=== PATIENT | female | born 1965 | race Caucasian/White ===

== ENCOUNTER 2020-10-30 15:19 | Outpatient (REF) | payer MEDICAID, SELFPAY | END 2020-10-30 15:20 | disposition home or self-care (01) | LOC: HO.LAB 15:19 | PROVIDERS: Visit Provider Internal Medicine | DX: Z20.828 Contact with and (suspected) exposure to other viral communicable diseases (principal) | CPT/HCPCS: C9803; U0003 ==

== ENCOUNTER 2021-01-06 11:04 | Outpatient (REF) | payer MEDICAID, SELFPAY | END 2021-01-06 11:05 | disposition home or self-care (01) | LOC: HO.LAB 11:04 | PROVIDERS: Visit Provider Internal Medicine | DX: Z20.822 Contact with and (suspected) exposure to COVID-19 (principal) | CPT/HCPCS: 36415; C9803; U0003; U0005 ==

== ENCOUNTER 2021-09-28 13:20 | Emergency (ER) | payer MEDICAID, SELFPAY ==
[2021-09-28 13:26] VITALS: BP 144/86; PULSE 93; RESP 18; TEMP 36.6; O2SAT 99; BMI 29.9
--- NOTE | 2021-09-28 16:25 | ECG_ITS ---
Test Reason : ANXIETY Blood Pressure : / mmHG Vent. Rate : 072 BPM Atrial Rate : 072 BPM P-R Int : 130 ms QRS Dur : 086 ms QT Int : 426 ms P-R-T Axes : 059 006 018 degrees QTc Int : 466 ms Normal sinus rhythm Nonspecific T wave abnormality Borderline ECG No significant changes seen Referred By: Miriam Luna Electronically Signed By:ISAURA ARRIETA MD
--- NOTE | 2021-09-28 16:36 | ED_ITS ---
HPI - Anxiety General Chief Complaint: Anxiety <VINH Middleton Last Filed: 09/28/21 16:50> Stated Complaint: PANIC ATTACK <VINH Middleton Last Filed: 09/28/21 16:50> Time Seen by Provider: 09/28/21 16:08 <VINH Middleton Last Filed: 09/28/21 16:50> Source: patient <VINH Middleton Last Filed: 09/28/21 16:50> Mode of arrival: ambulatory <VINH Middleton Last Filed: 09/28/21 16:50> History of Present Illness HPI narrative: 56-year-old female with a past medical history anxiety/panic attacks on clonazepam presenting to the ED complaining of persistent panic attack x3 days. Reports associated CP and SOB, denies at present. Reports takes Klonopin 1 mg t.i.d., states ran out of medications. Denies fever, chills, precipitating factors, SI/HI <VINH Middleton Last Filed: 09/28/21 16:50> Related Data Allergies/Adverse Reactions: Allergies Allergy/AdvReac Type Severity Reaction Status Date / Time iodine AdvReac Rash Verified 09/28/21 13:28 Sulfa (Sulfonamide AdvReac Rash Verified 09/28/21 13:28 Antibiotics) <VINH Middleton Last Filed: 09/28/21 16:50> Review of Systems Review of Systems: Constitutional: No Weight loss, No Fever, No Chills, No Fatigue, No Malaise ENT/Mouth: No Hearing loss, No Ear Pain, No Hoarseness, No sore throat Eyes: No Eye Pain, No Swelling, No Redness Cardiovascular: + Chest Pain (resolved), + SOB (resolved) Respiratory: No Cough, No Sputum, No Dyspnea Gastrointestinal: No Nausea, No Vomiting, No Diarrhea, No Abdominal pain Genitourinary: No Dysuria, No Urinary Frequency, No Hematuria, Musculoskeletal: No joint pain, No Myalgias, No Joint Swelling Skin: No Skin Lesions, No rash Neuro: No Weakness, No Numbness, No Headache Psych: + Anxiety/Panic, No Depression, No SI/HI <VINH Middleton Last Filed: 09/28/21 16:50> Yes all other systems are reviewed and are negative <VINH Middleton - Last Filed: 09/28/21 16:50> FORMERLY [facility] Past Medical History Attestation statement: The following information was validated with the patient. <VINH Middleton - Last Filed: 09/28/21 16:50> Medical History: Medical History (Updated 09/29/21 @ 00:01 by Yonny Daniels) Panic attack <VINH Middleton - Last Filed: 09/28/21 16:50> Social History Social History: Social History Advance Directives: No Advance Directives Information Provided: No <VINH Middleton - Last Filed: 09/28/21 16:50> Physical Exam Vital Signs: Vital Signs: Last Vital Signs Temp 97.9 F 09/28/21 13:26 Pulse 93 09/28/21 13:26 Resp 18 09/28/21 13:26 BP 144/86 H 09/28/21 13:26 Pulse Ox 99 09/28/21 13:26 Body Mass Index 29.9 <VINH Middleton - Last Filed: 09/28/21 16:50> Vital Signs: Last Vital Signs Temp 97.9 F 09/28/21 13:26 Pulse 93 09/28/21 13:26 Resp 18 09/28/21 13:26 BP 144/86 H 09/28/21 13:26 Pulse Ox 99 09/28/21 13:26 Body Mass Index 29.9 <Flo Peña MD - Last Filed: 09/29/21 01:01> Const: General: cooperative, healthy appearing and no acute distress <VINH Middleton - Last Filed: 09/28/21 16:50> Orientation/consciousness: patient oriented x3 <VINH Middleton - Last Filed: 09/28/21 16:50> Limitations: no limitations <VINH Middleton - Last Filed: 09/28/21 16:50> HENMT: Head: Yes normal to inspection <VINH Middleton - Last Filed: 09/28/21 16:50> Ears: hearing grossly normal bilaterally <VINH Middleton - Last Filed: 09/28/21 16:50> General nose exam: Normal external nose present <VINH Middleton - Last Filed: 09/28/21 16:50> Face and sinus: Yes normal facial exam <Miriammichael Luna [facility] Last Filed: 09/28/21 16:50> Eyes: General: appearance normal, both eyes and all related structures <Miriam Jeremy [facility] Last Filed: 09/28/21 16:50> EOM: EOMs intact bilaterally <Miriammichael Luna [facility] Last Filed: 09/28/21 16:50> Neck: Neck: Yes normal visual inspection and Yes no meningeal signs <Miriam Jeremy [facility] Last Filed: 09/28/21 16:50> Resp: Effort & Inspection: normal respiratory effort and no respiratory distress <Miriam Jeremy [facility] Last Filed: 09/28/21 16:50> Auscultation: clear to auscultation bilaterally, no rales, no rhonchi and no wheezes <Miriam Jeremy [facility] Last Filed: 09/28/21 16:50> Cardio: Rate: regular rate <Miriammichael Luna [facility] Last Filed: 09/28/21 16:50> Heart sounds: S1 normal heart sound present and S2 normal heart sound present <Miriam Jeremy [facility] Last Filed: 09/28/21 16:50> GI: Inspection: Yes normal to inspection <Miriam Jeremy [facility] Last Filed: 09/28/21 16:50> Palpation (GI): Soft to palpation, nontender, no guarding and not rigid <Miriam Luna [facility] Last Filed: 09/28/21 16:50> Skin: Rashes: no rashes <Miriam Jeremy [facility] Last Filed: 09/28/21 16:50> Wounds: no wounds <Miriam Jeremy [facility] Last Filed: 09/28/21 16:50> Neuro: General: patient oriented x3 and no meningeal signs <Miriam Luna [facility] Last Filed: 09/28/21 16:50> Gait exam (Neuro): Normal gait present <Miriammichael Luna [facility] Last Filed: 09/28/21 16:50> Extrem: General: Yes normal to inspection <Miriam Luna [facility] Last Filed: 09/28/21 16:50> MDM - Anxiety MDM Narrative Medical decision making narrative: 56-year-old female with a past medical history anxiety/panic attacks on clonazepam presenting to the ED complaining of persistent panic attack x3 days. On exam vital signs stable, NAD/nontoxic appearing. Per [facility] review patient filled 15 days worth, 45 pills of clonazepam on 09/19, should still have a week's worth of medication. Discussed with patient cannot give her additional medications today in the ED and needs to follow-up with her PCP Will obtain EKG and plan for discharge <VINH Middleton - Last Filed: 09/28/21 16:50> Medical Records Attestation: I reviewed the patient's medical records. <VINH Middleton - Last Filed: 09/28/21 16:50> Lab Data Attestation: I reviewed the patient's lab results. <VINH Middleton - Last Filed: 09/28/21 16:50> ECG Data Attestation: I personally reviewed and interpreted this ECG as follows: <VINH Middleton - Last Filed: 09/28/21 16:50> ECG interpretation date: 09/28/21 <VINH Middleton - Last Filed: 09/28/21 16:50> ECG interpretation time: 16:44 <VINH Middleton - Last Filed: 09/28/21 16:50> Interpretation: EKG normal sinus rhythm with rate of 72. AK 130. QTC 466. Nonischemic/ no STEMI <VINH Middleton Last Filed: 09/28/21 16:50> Discharge Plan Discharge Clinical Impression: Acute anxiety <VINH Middleton Last Filed: 09/28/21 16:50> Patient Disposition: Home, Self-Care <VINH Middleton - Last Filed: 09/28/21 16:50> Instructions: Anxiety (ED) <VINH Middleton - Last Filed: 09/28/21 16:50> Additional Instructions: Continue taking home prescribed medications You should have plenty of her clonazepam to last through 10/04 Please follow-up with her doctor If her symptoms persist or worsen/become unbearable return to the ED <VINH Middleton - Last Filed: 09/28/21 16:50> Referrals: Jessy Randall, C T TECH [Primary Care Provider] - 2 days <VINH Middleton - Last Filed: 09/28/21 16:50> Interventions: ED Discharge Assessment Last Done: 09/28/21 17:12 <VINH Middleton - Last Filed: 09/28/21 16:50> Discharge Date/Time: 09/28/21 17:12 <VINH Middleton - Last Filed: 09/28/21 16:50>
== END 2021-09-28 17:12 | disposition home or self-care (01) ==
PROVIDERS: Emergency Provider Internal Medicine; PCP Nurse Practitioner Primary Care
DX: F41.9 Anxiety disorder, unspecified (principal); Z79.899 Other long term (current) drug therapy
CPT/HCPCS: 93005; 99283

== ENCOUNTER 2022-01-05 13:37 | Outpatient (RCR) | payer MEDICAID, SELFPAY | END 2022-01-16 12:39 | disposition home or self-care (01) | LOC: HO.PT 13:37 | PROVIDERS: PCP Nurse Practitioner Primary Care; Visit Provider Nurse Practitioner Primary Care | DX: R29.898 Other symptoms and signs involving the musculoskeletal system (principal); M25.511 Pain in right shoulder; M25.512 Pain in left shoulder | CPT/HCPCS: 97162 ==

== ENCOUNTER 2022-03-27 11:45 | Outpatient (REF) | payer MEDICAID, SELFPAY ==
--- NOTE | ~2022-03-27 | XR_ITS ---
EXAMINATION: XR ribs RT min 3V w CXR1V CLINICAL INFORMATION: Reason for Exam PLEURODYNIA COMPARISON: None TECHNIQUE: 3 views of the Right ribs. 1 view of the chest. XR/XR ribs RT min 3V w CXR1V FINDINGS/IMPRESSION: No displaced rib fracture. Please note that rib radiographs have low sensitivity for detection of rib fractures and if continued clinical concern CT chest is advised. Clear lungs. No pneumothorax. No pleural effusion. Normal cardiomediastinal silhouette.
== END 2022-03-27 11:46 | disposition home or self-care (01) ==
LOC: HO.XRAY 11:45
PROVIDERS: Absent Provider Nurse Practitioner Primary Care; PCP Nurse Practitioner Primary Care; Visit Provider Internal Medicine Geriatric Medicine
DX: R07.81 Pleurodynia (principal)
CPT/HCPCS: 71101

== ENCOUNTER 2022-04-06 14:34 | Outpatient (REF) | payer MEDICAID, SELFPAY ==
--- NOTE | ~2022-04-06 | MM_ITS ---
EXAMINATION: MM DIAGNOSTIC DIGITAL BREAST TOMOSYNTHESIS, BILATERAL US DIAGNOSTIC ULTRASOUND BREAST, RIGHT CLINICAL INFORMATION: Age 56. Prior mammography from [place] currently unavailable. Recent inferior right breast pain, improved. Prior history contralateral left breast pain, no longer present. No known family history breast cancer. The lifetime risk of breast cancer based on the Tyrer-Cuzick Model is 8%. COMPARISON: None. TECHNIQUE: Digital mammography is performed in craniocaudal and mediolateral oblique views. Digital breast tomosynthesis is performed in implant-displaced craniocaudal and implant-displaced mediolateral oblique views. Synthesized 2D images are generated from the tomosynthesis. Computer-aided detection (CAD) is performed for this exam. Ultrasound right breast is targeted to the area of clinical concern inferior breasts predominantly 5:00 through 7:00 position. Grayscale imaging and color Doppler are performed without and with harmonics. FINDINGS: There are scattered areas of fibroglandular density (ACR BI-RADS breast composition Category b). There are bilateral implants. The implant contours are smooth. The breast parenchymal pattern is unremarkable. There is no significant mass or architectural abnormality or abnormal calcifications. The axilla and skin contours are unremarkable. Right breast ultrasound demonstrates no cystic or solid mass, architectural abnormality, or focal duct ectasia. No skin thickening or edema tracking in soft tissue planes. Results are provided to the patient at time of visit by the technologist. MM/MM tomosynthesis diag imp BI IMPRESSION: -No mammographic evidence of malignancy or inflammatory changes. -Unremarkable targeted right breast ultrasound. ASSESSMENT: BI-RADS 1: Negative RECOMMENDATION: 1. Patient's pain should be managed based on the clinical impression. 2. Otherwise, routine annual screening mammography. This patient's information was entered into a reminder system with a target due date for their next mammogram.
== END 2022-04-06 14:35 | disposition home or self-care (01) ==
LOC: HO.MAMMO 14:34
PROVIDERS: PCP Nurse Practitioner Primary Care; Visit Provider Nurse Practitioner Primary Care
DX: N64.4 Mastodynia (principal)
CPT/HCPCS: 76642; 77062; 77066

== ENCOUNTER 2022-05-19 13:49 | Emergency (ER) | payer MEDICAID, SELFPAY ==
--- NOTE | 2022-05-19 14:01 | ED_ITS ---
HPI - Overdose General Chief Complaint: Overdose Stated Complaint: OVERDOSE Time Seen by Provider: 05/19/22 14:00 Source: patient and lang interpreter Mode of arrival: EMS Limitations: no limitations History of Present Illness HPI Narrative: thought she was snorting cocaine then overdosed requiring fentanyl, patient very upset that someone could have given her cocaine with opiates in it, when we mentioned fentanyl she states what is that? complaint: accidental overdose Onset (ago): minute(s) (just prior to arrival ) Context: Accidental Overdose: wanted to get high (thought she was snorting cocaine - overdose) Associated symptoms: nausea/vomiting Treatments Prior to Arrival: narcan (total 8mg IN narcan then 0.4mg IV narcan with EMS) Related Data Allergies Allergy/AdvReac Type Severity Reaction Status Date / Time olanzapine Allergy Severe Liver Verified 05/19/22 14:01 Toxicity iodine AdvReac Rash Verified 09/28/21 13:28 Sulfa (Sulfonamide AdvReac Rash Verified 09/28/21 13:28 Antibiotics) Review of Systems Review of Systems: Constitutional : No Fever, No Chills ENT/Mouth : No Ear Pain, No Nasal Congestion, No sore throat Eyes: No Eye Pain, No Swelling, No Redness Cardiovascular : No Chest Pain, No SOB Respiratory : No Cough, No Sputum, No Dyspnea Gastrointestinal : pos Nausea, No Vomiting, No Diarrhea, No Hematochezia, No Melena Genitourinary : No Dysuria, No Urinary Frequency, No Hematuria Musculoskeletal : No Myalgias Skin : No Skin Lesions, No rash Neuro : No Weakness, No Numbness, No Paresthesias, No Dizziness, No Headache Psych : positive Anxiety, no Depression, no SI/HI Heme/Lymph: No Lymphadenopathy Endocrine : No Polyuria, No Polydipsia All other systems reviewed and are negative [facility] Past Medical History Attestation statement: The following information was validated with the patient. Medical History Panic attack Social History Social History (Updated 05/19/22 @ 14:05 by Funmilayo Peñaloza DO) Household Members: None Alcohol intake: never Patient Tobacco Use Status: Former Tobacco user Tobacco use type: Cigarette Years Smoked: 30 years Use of substances other than those prescribed or required for medical reasons: Yes Substance Use Type: Crack/Cocaine and Other Substance Use Type Other:: fent Substance Use Frequency: Occasionally Last Used Substance: Just Prior to Admission Advance Directives: No Advance Directives Information Provided: No Physical Exam Vital Signs: Vital Signs: Last Vital Signs Pulse 101 H 05/19/22 14:02 Resp 18 05/19/22 14:02 BP 124/90 H 05/19/22 14:02 Pulse Ox 96 05/19/22 14:02 O2 Del Method 05/19/22 14:02 BMI result Body Mass Index 33.0 Appearance: Alert. Oriented X3. No acute distress. Anxious Eyes: Pupils equal, round and reactive to light. 5mm ENT: Pharynx normal. Neck: Normal inspection. Neck supple. CVS: Normal heart rate and rhythm. Pulses normal. Respiratory: No respiratory distress. Breath sounds normal. Abdomen: Soft and nontender. Skin: Skin warm and dry. Normal skin color. Normal skin turgor. Extremities: No lower extremity edema. No calf ttp Neuro: Oriented X 3. No motor deficit. No sensory deficit. Course Course Course Narrative: obs for 2 hours no need for repeat narcan GCS 15 stable for DC MDM - Overdose MDM Narrative Medical decision making narrative: 56 yo female with hx of anxiety was snorting cocaine today when she overdosed - responded to narcan, has no complaints other than nausea. She has no SI, no head injury. Will need observation for opiate overdose. Patient very upset that the cocaine could have opiates in it. Discharge Plan Discharge Clinical Impression: Opiate overdose Qualifiers: Encounter type: initial encounter Injury intent: accidental or unintentional Qualified Code(s): T40.601A - Poisoning by unspecified narcotics, accidental (unintentional), initial encounter Patient Disposition: Home, Self-Care Instructions: Adult Overdose (ED) Additional Instructions: return to ED for any worsening symptoms or concerns please be careful, stop using drugs, most drugs are now cut with different medications/drugs and are not safe
[2022-05-19 14:02] VITALS: BP 124/90; PULSE 101; PULSE 130; RESP 18; O2SAT 96; O2SAT 97; BMI 33.0
[2022-05-19] MEDS: ondansetron HCL 4 MG/2 ML VIAL IVPUSH (14:23)
[2022-05-19] MEDS: Acetaminophen 325 MG TABLET 650 MG PO (15:32)
[2022-05-19 16:00] VITALS: BP 115/74; PULSE 71; RESP 14; O2SAT 93
== END 2022-05-19 17:42 | disposition home or self-care (01) ==
PROVIDERS: Emergency Provider Emergency Medicine; PCP Physician Assistant Medical
DX: T40.5X1A Poisoning by cocaine, accidental (unintentional), initial encounter (principal); Y92.9 Unspecified place or not applicable; F14.19 Cocaine abuse with unspecified cocaine-induced disorder; Z87.891 Personal history of nicotine dependence; Z71.51 Drug abuse counseling and surveillance of drug abuser
CPT/HCPCS: 96374; 99284; 99285; J2405

== ENCOUNTER 2022-12-15 13:20 | Emergency (ER) | payer MEDICAID, SELFPAY ==
--- NOTE | ~2022-12-15 | XR_ITS ---
EXAMINATION: XR FOOT, RIGHT CLINICAL INFORMATION: Right foot pain, rule out fracture. COMPARISON: None TECHNIQUE: AP, lateral, and oblique views of the right foot. An indicator arrow points to the fifth metatarsal as well as the dorsum of the foot at the level the tarsal bones. FINDINGS: There is no acute fracture or dislocation. The tarsal bones are normally aligned. Moderate soft tissue swelling is seen. XR/XR foot RT 2V IMPRESSION: Moderate soft tissue swelling without acute underlying osseous abnormality.
--- NOTE | ~2022-12-15 | XR_ITS ---
EXAMINATION: XR ANKLE, RIGHT CLINICAL INFORMATION: Status post fall, rule out fracture. COMPARISON: None TECHNIQUE: AP, lateral, and mortise views of the right ankle. FINDINGS: The patient is status post distal fibular and medial malleolus ORIF showing good anatomic alignment and no evidence for hardware malfunction. The tarsal bones are normally aligned. Moderate soft tissue swelling is seen with soft tissue fullness more pronounced laterally. XR/XR ankle RT min 3V IMPRESSION: Moderate soft tissue swelling without overt acute underlying osseous or hardware abnormality. A soft tissue collection/hematoma laterally cannot be excluded. Correlate with physical exam.
[2022-12-15 13:32] VITALS: BP 130/86; PULSE 96; O2SAT 99
[2022-12-15 14:34] VITALS: BP 148/91; PULSE 81; RESP 16; TEMP 36.2; O2SAT 97; BMI 36.6
--- NOTE | 2022-12-15 14:36 | ECG_ITS ---
Test Reason : dizzyness Blood Pressure : / mmHG Vent. Rate : 075 BPM Atrial Rate : 075 BPM P-R Int : 126 ms QRS Dur : 080 ms QT Int : 418 ms P-R-T Axes : -03 014 017 degrees QTc Int : 466 ms Normal sinus rhythm Normal ECG When compared with ECG of 28-SEP-2021 16:44, No significant change was found Referred By: Dar Borden Electronically Signed By:WALI COATS MD
--- NOTE | 2022-12-15 14:38 | ED.GENADULT ---
HPI - General Adult General Chief complaint: Fall <VINH Ramirez Last Filed: 12/15/22 20:20> Stated complaint: RIGHT FOOT PAIN WITH SWELLING <VINH Ramirez Last Filed: 12/15/22 20:20> Time Seen by Provider: 12/15/22 15:57 <VINH Ramirez Last Filed: 12/15/22 20:20> Source: patient and EMS <VINH Schroeder Last Filed: 12/15/22 17:38> Mode of arrival: EMS <VINH Schroeder Last Filed: 12/15/22 17:38> History of Present Illness HPI narrative: 57-year-old female with no significant past medical history presenting to the ED complaining of right ankle pain and swelling s/p fall last night. Reports got up from lying felt lightheaded tripped and fell, denies head trauma or LOC. denies taking anticoagulation. Denies lightheadedness or dizziness at present or today. Denies vision change/loss, neck/back pain, CP/SOB, urinary incontinence/retention, weakness, headache <VINH Schroeder Last Filed: 12/15/22 17:38> Onset (ago): day(s) <VINH Schroeder Last Filed: 12/15/22 17:38> Related Data Home medications: Previous Rx's Medication Instructions Recorded acetaminophen 500 mg tablet 500 mg PO Q6H PRN fever or pain 12/15/22 (Tylenol Extra Strength) #14 tabs naproxen 500 mg tablet 500 mg PO BID PRN pain 10 days #20 12/15/22 tabs <VINH Ramirez Last Filed: 12/15/22 20:20> Allergies/adverse reactions: Allergies Allergy/AdvReac Type Severity Reaction Status Date / Time olanzapine Allergy Severe Liver Verified 05/19/22 14:01 Toxicity iodine AdvReac Rash Verified 09/28/21 13:28 Sulfa (Sulfonamide AdvReac Rash Verified 09/28/21 13:28 Antibiotics) <VINH Ramirez Last Filed: 12/15/22 20:20> Review of Systems Review of Systems: Constitutional: No Fever, No Chills, No Fatigue, No Malaise ENT/Mouth: No Ear Pain, No Nasal Congestion, No sore throat, No Rhinorrhea, No Swallowing Difficulty Eyes: No Eye Pain, No Swelling, No Redness, No Vision Changes Cardiovascular: No Chest Pain, No SOB, No Edema Respiratory: No Cough, No Sputum, No Dyspnea Gastrointestinal: No Nausea, No Vomiting, No Diarrhea, No Constipation, No Abdominal pain Genitourinary: No Dysuria, No Hematuria, No Urinary Incontinence/retention Musculoskeletal: + joint pain, No Myalgias, + Joint Swelling Skin: No Skin Lesions, No rash Neuro: No Weakness, No Numbness, No Paresthesias, No Loss of Consciousness, + Lightheaded (resolved), No Headache <VINH Schroeder - Last Filed: 12/15/22 17:38> Yes all other systems are reviewed and are negative <VINH Schroeder - Last Filed: 12/15/22 17:38> Constitutional: Constitutional: Reports as per HPI <VINH Schroeder - Last Filed: 12/15/22 17:38> Neurologic: Denies Abnormal speech present <VINH Schroeder - Last Filed: 12/15/22 17:38> [facility] Past Medical History Attestation statement: The following information was validated with the patient. <VINH Schroeder - Last Filed: 12/15/22 17:38> Medical History: Medical History Panic attack <VINH Ramirez - Last Filed: 12/15/22 20:20> Social History Social History: Social History Household Members: None Alcohol intake: never Patient Tobacco Use Status: Former Tobacco user Tobacco use type: Cigarette Years Smoked: 30 years Substance Use Type: Crack/Cocaine and Other <VINH Ramirez - Last Filed: 12/15/22 20:20> Physical Exam ED Vital Signs: Vital Signs - 24 hr 12/15/22 14:34 12/15/22 17:34 12/15/22 17:35 Temperature 97.1 F Pulse Rate 81 70 66 Respiratory Rate 16 Blood Pressure 148/91 H 128/68 133/67 Pulse Oximetry 97 Oxygen Delivery Method Room Air BMI result Body Mass Index 36.6 <VINH Ramierz - Last Filed: 12/15/22 20:20> Vital Signs - 24 hr 12/15/22 14:34 12/15/22 17:34 12/15/22 17:35 Temperature 97.1 F Pulse Rate 81 70 66 Respiratory Rate 16 Blood Pressure 148/91 H 128/68 133/67 Pulse Oximetry 97 Oxygen Delivery Method Room Air BMI result Body Mass Index 36.6 <VINH Schroeder - Last Filed: 12/15/22 17:38> Const General: cooperative, healthy appearing and no acute distress <VINH Schroeder - Last Filed: 12/15/22 17:38> Orientation/consciousness: patient oriented x3 <VINH Schroeder - Last Filed: 12/15/22 17:38> Limitations: no limitations <VINH Schroeder - Last Filed: 12/15/22 17:38> HENMT Head: Yes normal to inspection and Yes atraumatic <VINH Schroeder - Last Filed: 12/15/22 17:38> Ears: hearing grossly normal bilaterally <VINH Schroeder - Last Filed: 12/15/22 17:38> General nose exam: Normal external nose present <VINH Schroeder Last Filed: 12/15/22 17:38> Face and sinus: Yes normal facial exam <VINH Schroeder - Last Filed: 12/15/22 17:38> Eyes General: appearance normal, both eyes and all related structures <VINH Schroeder - Last Filed: 12/15/22 17:38> Pupils: Equal, round and reactive pupils present <VINH Schroeder - Last Filed: 12/15/22 17:38> EOM: EOMs intact bilaterally <VINH Schroeder - Last Filed: 12/15/22 17:38> Neck Neck: Yes normal visual inspection and Yes no meningeal signs <VINH Schroeder - Last Filed: 12/15/22 17:38> Resp Effort & Inspection: normal respiratory effort and no respiratory distress <VINH Schroeder - Last Filed: 12/15/22 17:38> Auscultation: clear to auscultation bilaterally, no crackles, no rales and no rhonchi <Miriam Poulgent, PA - Last Filed: 12/15/22 17:38> Cardio Rate: regular rate <Miriam Poulgent PA - Last Filed: 12/15/22 17:38> Heart sounds: S1 normal heart sound present and S2 normal heart sound present <Miriam Poulgent, PA - Last Filed: 12/15/22 17:38> Peripheral pulses: Peripheral pulses 2+ throughout <Miriam Poulgent, PA - Last Filed: 12/15/22 17:38> GI Inspection: Yes normal to inspection <Miriam Poulgent, PA - Last Filed: 12/15/22 17:38> Palpation (GI): Soft to palpation, nontender, no guarding and not rigid <Miriam Poulgent, PA - Last Filed: 12/15/22 17:38> General: Yes no CVA tenderness <Miriam Poulgent, PA - Last Filed: 12/15/22 17:38> Back/Spine/Pelvis Other: No midline thoracic/lumbar spinous tenderness/step-off or deformity <Miriam Poulgent, PA - Last Filed: 12/15/22 17:38> Back: no CVA tenderness <Miriam Poulgent, PA - Last Filed: 12/15/22 17:38> Skin Rashes: no rashes <Miriam Poulgent, PA - Last Filed: 12/15/22 17:38> Wounds: no wounds <Miriam Small, PA - Last Filed: 12/15/22 17:38> Neuro General: patient oriented x3, tone normal, moves all extremities, no meningeal signs, no focal motor deficits and CN's II-XI intact bilaterally <Miriam Poulgent, PA - Last Filed: 12/15/22 17:38> Cranial nerves: Yes CN's II-XII intact bilaterally and Yes Equal, round and reactive pupils present <Miriam Poulgent, PA - Last Filed: 12/15/22 17:38> Cognition (Neuro): normal cognition <Miriam Poulgent, PA - Last Filed: 12/15/22 17:38> Speech: No Abnormal speech present <Miriam Poulgent PA - Last Filed: 12/15/22 17:38> Gait exam (Neuro): Normal gait present <VINH Schroeder Last Filed: 12/15/22 17:38> Motor exam (neuro): 5/5 motor strength present throughout <VINH Schroeder Last Filed: 12/15/22 17:38> Coordination: [id number] test normal <VINH Schroeder Last Filed: 12/15/22 17:38> Romberg Test: Negative <VINH Schroeder Last Filed: 12/15/22 17:38> Extrem Other: Right ankle with notable diffuse swelling and tenderness to palpation. Limited flexion and extension secondary to pain and swelling. Neurovascularly intact distally <VINH Schroeder Last Filed: 12/15/22 17:38> Course Course Course Narrative: RME: 57 yold female presents to the ED for right foot pain. patient states last night she was dizzy and than fell unto her right foot. patient denies hitting head or loss of consciouseness. patient states today complaint is right foot pain. Right foot swelling and ecchymosis. neuro, motor, and vascular exam is intact. Xray, labs, and ekg ordered. neuro exam is intact. <VINH Ramirez - Last Filed: 12/15/22 20:20> RME: 57 yold female presents to the ED for right foot pain. patient states last night she was dizzy and than fell unto her right foot. patient denies hitting head or loss of consciouseness. patient states today complaint is right foot pain. Right foot swelling and ecchymosis. neuro, motor, and vascular exam is intact. Xray, labs, and ekg ordered. neuro exam is intact. -1730--no leukocytosis, troponin negative, labs otherwise unremarkable XR foot RT 2V IMPRESSION: Moderate soft tissue swelling without acute underlying osseous abnormality. XR ankle RT min 3V IMPRESSION: Moderate soft tissue swelling without overt acute underlying osseous or hardware abnormality. A soft tissue collection/hematoma laterally cannot be excluded. Correlate with physical exam. >> patient placed in Aircast and supplied with crutches to follow-up with orthopedics Orthostatic vital signs negative Results discussed with patient including worrisome signs and symptoms and strict return precautions, and when to return to the emergency department. They verbalized understanding and feel safe for discharge at this time. <VINH Schroeder - Last Filed: 12/15/22 17:38> Medications Administered Discontinued Medications Generic Name Dose Route Start Last Admin Trade Name Freq PRN Reason Stop Dose Admin Ketorolac Tromethamine 30 mg 12/15/22 17:44 12/15/22 18:02 Ketorolac Tromethamine 30 Mg/Ml Vial IM 12/15/22 17:45 30 mg ONCE ONE Administration <VINH Ramirez - Last Filed: 12/15/22 20:20> Medications Administered Discontinued Medications Generic Name Dose Route Start Last Admin Trade Name Freq PRN Reason Stop Dose Admin Ketorolac Tromethamine 30 mg 12/15/22 17:44 12/15/22 18:02 Ketorolac Tromethamine 30 Mg/Ml Vial IM 12/15/22 17:45 30 mg ONCE ONE Administration <VINH Schroeder - Last Filed: 12/15/22 17:38> Medical Decision Making Medical Decision Making MDM Narrative: 57-year-old female with no significant past medical history presenting to the ED complaining of right ankle pain and swelling s/p fall last night. On exam vital signs stable, NAD, nontoxic appearing, no focal neuro deficits, physical exam as above with notable right ankle swelling and tenderness. Concern for ankle fracture versus sprain. Sx atypical for ACS/PE, rule out orthostasis vs metabolic abnormalities. Low suspicion for dissection, CVA/TIA Plan: EKG, labs, x-ray, orthostatics, re-evaluate Please refer to course for remaining clinical decision making, interpretation of labs/imaging results, and discussions with consultants and/or family members. <VINH Schroeder - Last Filed: 12/15/22 17:38> Differential Diagnosis Differential Diagnoses: The differential diagnosis associated with the presentation includes <VINH Schroeder - Last Filed: 12/15/22 17:38> As above <VINH Schroeder - Last Filed: 12/15/22 17:38> Admission/Observation Consideration of admission/observation: Escalation of care including admission/observation considered <VINH Schroeder Last Filed: 12/15/22 17:38> Lab Data [facility] Lab Attestation statement: I reviewed the patient's lab results. <VINH Schroeder - Last Filed: 12/15/22 17:38> Result Diagrams: 12/15/22 15:04 12/15/22 15:04 <VINH Ramirez - Last Filed: 12/15/22 20:20> Labs: Lab Results 12/15/22 12/15/22 12/15/22 Range/Units 15:04 15:04 15:04 WBC 9.1 (4.8-10.8) X10*3/uL RBC 4.05 L (4.20-5.50) X10*6/uL Hgb 12.8 (12.0-16.0) g/dl Hct 39.2 (37.0-47.0) % MCV 96.8 (80.0-98.0) fL MCH 31.6 (27.0-33.0) pg MCHC 32.7 (31.0-35.0) g/dl RDW 13.5 (11.0-16.0) % Plt Count 238 (160-400) X10*3/uL MPV 11.8 (9.4-12.3) fL Immature Gran % (Auto) 0.5 H (0.0-0.4) % Neut % (Auto) 73.2 H (45-73) % Lymph % (Auto) 19.2 L (20-40) % [place] % (Auto) 6.5 (2-11) % Eos % (Auto) 0.5 (0-4) % Baso % (Auto) 0.1 (0-2) % Lymph # (Auto) 1.8 (1.2-4.9) X10*3/uL [place] # (Auto) 0.6 (0.1-1.2) X10*3/uL Eos # (Auto) 0.1 (0.0-0.4) X10*3/uL Baso # (Auto) 0.0 (0.0-0.2) X10*3/uL Abs Immat Gran (auto) 0.05 H (0.00-0.03) X10*3/uL Absolute Neuts (auto) 6.7 (2.0-8.3) x10*3/uL Absolute Nucleated RBC 0.000 (0.0-0.012) X10*3/uL Nucleated RBC % (auto) 0.0 (0.0-0.2) /100WBC PT 10.3 (10.0-13.1) SEC INR 0.9 (0.9-1.1) APTT 30.5 (26.0-36.4) SEC Sodium 139 (135-145) mmol/L Potassium 4.9 (3.3-5.1) mmol/L Chloride 102 (96-108) mmol/L Carbon Dioxide 27 (22-29) mmol/L Anion Gap 15 (12-20) BUN 14 (9-16) mg/dL Creatinine 0.90 (0.5-1.4) mg/dL Estim Creat Clear Calc 80.7 Estimated GFR > 60 Random Glucose 105 (60-115) mg/dL Calcium 9.6 (8.4-10.2) mg/dL Magnesium 2.3 (1.6-2.6) mg/dL Total Bilirubin 0.4 (0.0-1.0) mg/dL AST 18 (5-31) U/L ALT 19 (0-31) U/L Alkaline Phosphatase 102 (39-117) U/L Troponin I High Sens (<3.5-17.0) ng/L Total Protein 7.5 (6.5-8.0) g/dL Albumin 4.7 (3.5-5.0) g/dL 12/15/22 Range/Units 15:04 WBC (4.8-10.8) X10*3/uL RBC (4.20-5.50) X10*6/uL Hgb (12.0-16.0) g/dl Hct (37.0-47.0) % MCV (80.0-98.0) fL MCH (27.0-33.0) pg MCHC (31.0-35.0) g/dl RDW (11.0-16.0) % Plt Count (160-400) X10*3/uL MPV (9.4-12.3) fL Immature Gran % (Auto) (0.0-0.4) % Neut % (Auto) (45-73) % Lymph % (Auto) (20-40) % [place] % (Auto) (2-11) % Eos % (Auto) (0-4) % Baso % (Auto) (0-2) % Lymph # (Auto) (1.2-4.9) X10*3/uL [place] # (Auto) (0.1-1.2) X10*3/uL Eos # (Auto) (0.0-0.4) X10*3/uL Baso # (Auto) (0.0-0.2) X10*3/uL Abs Immat Gran (auto) (0.00-0.03) X10*3/uL Absolute Neuts (auto) (2.0-8.3) x10*3/uL Absolute Nucleated RBC (0.0-0.012) X10*3/uL Nucleated RBC % (auto) (0.0-0.2) /100WBC PT (10.0-13.1) SEC INR (0.9-1.1) APTT (26.0-36.4) SEC Sodium (135-145) mmol/L Potassium (3.3-5.1) mmol/L Chloride (96-108) mmol/L Carbon Dioxide (22-29) mmol/L Anion Gap (12-20) BUN (9-16) mg/dL Creatinine (0.5-1.4) mg/dL Estim Creat Clear Calc Estimated GFR Random Glucose (60-115) mg/dL Calcium (8.4-10.2) mg/dL Magnesium (1.6-2.6) mg/dL Total Bilirubin (0.0-1.0) mg/dL AST (5-31) U/L ALT (0-31) U/L Alkaline Phosphatase (39-117) U/L Troponin I High Sens < 3.5 (<3.5-17.0) ng/L Total Protein (6.5-8.0) g/dL Albumin (3.5-5.0) g/dL <VINH Ramirez - Last Filed: 12/15/22 20:20> Lab Results 12/15/22 12/15/22 12/15/22 Range/Units 15:04 15:04 15:04 WBC 9.1 (4.8-10.8) X10*3/uL RBC 4.05 L (4.20-5.50) X10*6/uL Hgb 12.8 (12.0-16.0) g/dl Hct 39.2 (37.0-47.0) % MCV 96.8 (80.0-98.0) fL MCH 31.6 (27.0-33.0) pg MCHC 32.7 (31.0-35.0) g/dl RDW 13.5 (11.0-16.0) % Plt Count 238 (160-400) X10*3/uL MPV 11.8 (9.4-12.3) fL Immature Gran % (Auto) 0.5 H (0.0-0.4) % Neut % (Auto) 73.2 H (45-73) % Lymph % (Auto) 19.2 L (20-40) % [place] % (Auto) 6.5 (2-11) % Eos % (Auto) 0.5 (0-4) % Baso % (Auto) 0.1 (0-2) % Lymph # (Auto) 1.8 (1.2-4.9) X10*3/uL [place] # (Auto) 0.6 (0.1-1.2) X10*3/uL Eos # (Auto) 0.1 (0.0-0.4) X10*3/uL Baso # (Auto) 0.0 (0.0-0.2) X10*3/uL Abs Immat Gran (auto) 0.05 H (0.00-0.03) X10*3/uL Absolute Neuts (auto) 6.7 (2.0-8.3) x10*3/uL Absolute Nucleated RBC 0.000 (0.0-0.012) X10*3/uL Nucleated RBC % (auto) 0.0 (0.0-0.2) /100WBC PT 10.3 (10.0-13.1) SEC INR 0.9 (0.9-1.1) APTT 30.5 (26.0-36.4) SEC Sodium 139 (135-145) mmol/L Potassium 4.9 (3.3-5.1) mmol/L Chloride 102 (96-108) mmol/L Carbon Dioxide 27 (22-29) mmol/L Anion Gap 15 (12-20) BUN 14 (9-16) mg/dL Creatinine 0.90 (0.5-1.4) mg/dL Estim Creat Clear Calc 80.7 Estimated GFR > 60 Random Glucose 105 (60-115) mg/dL Calcium 9.6 (8.4-10.2) mg/dL Magnesium 2.3 (1.6-2.6) mg/dL Total Bilirubin 0.4 (0.0-1.0) mg/dL AST 18 (5-31) U/L ALT 19 (0-31) U/L Alkaline Phosphatase 102 (39-117) U/L Troponin I High Sens (<3.5-17.0) ng/L Total Protein 7.5 (6.5-8.0) g/dL Albumin 4.7 (3.5-5.0) g/dL 12/15/22 Range/Units 15:04 WBC (4.8-10.8) X10*3/uL RBC (4.20-5.50) X10*6/uL Hgb (12.0-16.0) g/dl Hct (37.0-47.0) % MCV (80.0-98.0) fL MCH (27.0-33.0) pg MCHC (31.0-35.0) g/dl RDW (11.0-16.0) % Plt Count (160-400) X10*3/uL MPV (9.4-12.3) fL Immature Gran % (Auto) (0.0-0.4) % Neut % (Auto) (45-73) % Lymph % (Auto) (20-40) % [place] % (Auto) (2-11) % Eos % (Auto) (0-4) % Baso % (Auto) (0-2) % Lymph # (Auto) (1.2-4.9) X10*3/uL [place] # (Auto) (0.1-1.2) X10*3/uL Eos # (Auto) (0.0-0.4) X10*3/uL Baso # (Auto) (0.0-0.2) X10*3/uL Abs Immat Gran (auto) (0.00-0.03) X10*3/uL Absolute Neuts (auto) (2.0-8.3) x10*3/uL Absolute Nucleated RBC (0.0-0.012) X10*3/uL Nucleated RBC % (auto) (0.0-0.2) /100WBC PT (10.0-13.1) SEC INR (0.9-1.1) APTT (26.0-36.4) SEC Sodium (135-145) mmol/L Potassium (3.3-5.1) mmol/L Chloride (96-108) mmol/L Carbon Dioxide (22-29) mmol/L Anion Gap (12-20) BUN (9-16) mg/dL Creatinine (0.5-1.4) mg/dL Estim Creat Clear Calc Estimated GFR Random Glucose (60-115) mg/dL Calcium (8.4-10.2) mg/dL Magnesium (1.6-2.6) mg/dL Total Bilirubin (0.0-1.0) mg/dL AST (5-31) U/L ALT (0-31) U/L Alkaline Phosphatase (39-117) U/L Troponin I High Sens < 3.5 (<3.5-17.0) ng/L Total Protein (6.5-8.0) g/dL Albumin (3.5-5.0) g/dL <VINH Schroeder - Last Filed: 12/15/22 17:38> Independent Interpretation I performed an independent interpretation of an: Plain X-Ray <VINH Schroeder - Last Filed: 12/15/22 17:38> Radiology Impression Discussion of test interpretation with radiology: I have reviewed the radiologist's reading. <VINH Schroeder Last Filed: 12/15/22 17:38> External Record Review External record reviewed: Prior outpatient labs <VINH Schroeder Last Filed: 12/15/22 17:38> prior ED visits <VINH Schroeder - Last Filed: 12/15/22 17:38> Prescription Management I considered prescription management with: Pain Medication <VINH Schroeder Last Filed: 12/15/22 17:38> Discharge Plan Discharge Clinical Impression: Ankle sprain, Fall, Episodic lightheadedness <VINH Ramirez - Last Filed: 12/15/22 20:20> Patient Disposition: Home, Self-Care <VINH Ramirez - Last Filed: 12/15/22 20:20> Instructions: Ankle Sprain (ED), Fall Prevention (ED) <VINH Ramirez - Last Filed: 12/15/22 20:20> Additional Instructions: Your x-rays do not show a fracture. They do show soft tissue swelling with a possible hematoma. Wear air cast and use crutches. Please do not bear weight on her ankle. Ice and elevate. Take Tylenol and naproxen which is an anti-inflammatory/pain medication with food Have close follow-up with your doctor & orthopedics If you develop recurrent lightheaded/dizziness episodes, chest pain, shortness of breath, recurrent fall return to the emergency department Radha radiograf?as no muestran peyton fractura. Muestran hinchaz?n de los tejidos blandos con un posible hematoma. Use yeso de aire y use muletas. Por favor, no cargue peso sobre gabriel tobillo. Hielo y eleva. Inavale Tylenol y naproxeno, que es un medicamento antiinflamatorio/analg?sico con alimentos. Seguimiento con ortopedia Tenga un seguimiento cercano con gabriel m?dico. Si presenta episodios recurrentes de aturdimiento/mareos, dolor en el pecho, dificultad para respirar, ca?reed recurrentes, regrese al departamento de emergencias <VINH Ramirez - Last Filed: 12/15/22 20:20> Prescriptions: New acetaminophen [Tylenol Extra Strength] 500 mg tablet 500 mg PO Q6H PRN (Reason: fever or pain) Qty: 14 0RF naproxen 500 mg tablet 500 mg PO BID PRN (Reason: pain) 10 Days Qty: 20 0RF <VINH Ramirez Last Filed: 12/15/22 20:20> Referrals: [facility]Provider Group] - 5 days <VINH Ramirez Last Filed: 12/15/22 20:20> Interventions: ED Discharge Assessment Last Done: 12/15/22 18:19 <VINH Ramirez - Last Filed: 12/15/22 20:20> Discharge Date/Time: 12/15/22 18:20 <VINH Ramirez - Last Filed: 12/15/22 20:20> Print Language: Ivorian <VINH Ramirez - Last Filed: 12/15/22 20:20>
[2022-12-15 15:08] LABS: MANUAL DIFF FLAG NO
[2022-12-15 15:12] LABS: Basophils Percent Auto 0.1 % (0-2); Eosinophils Absolute Auto 0.1 X10*3/uL (0.0-0.4); Eosinophils Percent Auto 0.5 % (0-4); Hematocrit 39.2 % (37.0-47.0); Hemoglobin 12.8 g/dl (12.0-16.0); Imm Gran Abs Auto 0.05 X10*3/uL (0.00-0.03); Imm Gran Pct Auto 0.5 % (0.0-0.4); Lymphocytes Absolute Auto 1.8 X10*3/uL (1.2-4.9); Lymphocytes Percent Auto 19.2 % (20-40); Mean Corpuscular HGB Conc 32.7 g/dl (31.0-35.0); Mean Corpuscular Hemoglobin 31.6 pg (27.0-33.0); Mean Corpuscular Volume 96.8 fL (80.0-98.0); Mean Platelet Volume 11.8 fL (9.4-12.3); Monocytes Absolute Auto 0.6 X10*3/uL (0.1-1.2); Monocytes Percent Auto 6.5 % (2-11); Neutrophils Absolute Auto 6.7 x10*3/uL (2.0-8.3); Neutrophils Percent Auto 73.2 % (45-73); Platelet Count 238 X10*3/uL (160-400); Red Blood Count 4.05 X10*6/uL (4.20-5.50); Red Cell Distribution Width 13.5 % (11.0-16.0); White Blood Count 9.1 X10*3/uL (4.8-10.8)
[2022-12-15 15:24] LABS: INTERNATIONAL NORM RATIO 0.9 (0.9-1.1); Prothrombin Time 10.3 SEC (10.0-13.1)
[2022-12-15 15:27] LABS: Partial Thromboplastin Time 30.5 SEC (26.0-36.4)
[2022-12-15 15:29] LABS: Alanine Aminotransferase 19 U/L (0-31); Albumin Level 4.7 g/dL (3.5-5.0); Alkaline Phosphatase 102 U/L (39-117); Anion Gap 15 (12-20); Aspartate Amino Transferase 18 U/L (5-31); Bilirubin Total 0.4 mg/dL (0.0-1.0); Blood Urea Nitrogen 14 mg/dL (9-16); Calcium 9.6 mg/dL (8.4-10.2); Carbon Dioxide 27 mmol/L (22-29); Chloride 102 mmol/L (96-108); Creatinine Clr Calc Pharmacy 80.7; Estimated Glomerular Filt Rate > 60; Glucose Random 105 mg/dL (60-115); Potassium 4.9 mmol/L (3.3-5.1); Sodium 139 mmol/L (135-145); Total Protein 7.5 g/dL (6.5-8.0)
[2022-12-15 15:46] LABS: Troponin-I High Sensitivity < 3.5 ng/L (<3.5-17.0)
[2022-12-15 16:30] LABS: Magnesium 2.3 mg/dL (1.6-2.6)
[2022-12-15 17:34] VITALS: BP 128/68; PULSE 70
[2022-12-15 17:35] VITALS: BP 133/67; PULSE 66
[2022-12-15] MEDS: Ketorolac Tromethamine 30 MG/ML VIAL IM (18:02)
== END 2022-12-15 18:20 | disposition home or self-care (01) ==
PROVIDERS: Physician Assistant; Emergency Provider Internal Medicine
DX: S93.401A Sprain of unspecified ligament of right ankle, initial encounter (principal); M79.671 Pain in right foot; R42 Dizziness and giddiness; W01.10XA Fall on same level from slipping, tripping and stumbling with subsequent striking against unspecified object, initial encounter; Y93.9 Activity, unspecified; Y92.9 Unspecified place or not applicable; Y99.9 Unspecified external cause status; Z79.899 Other long term (current) drug therapy; Z87.891 Personal history of nicotine dependence
CPT/HCPCS: 36415; 73610; 73620; 80053; 83735; 84484; 85025; 85610; 85730; 93005; 96372; 99284; J1885

== ENCOUNTER 2023-04-05 13:00 | Outpatient (RCR) | payer MEDICARE, MEDICAID, SELFPAY | END 2023-06-08 15:20 | disposition home or self-care (01) | LOC: HO.PT 13:00 | PROVIDERS: PCP Nurse Practitioner Primary Care; Visit Provider Nurse Practitioner Primary Care | DX: M25.571 Pain in right ankle and joints of right foot (principal) | CPT/HCPCS: 97110; 97140; 97162; 97530 ==

== ENCOUNTER 2023-04-29 12:57 | Outpatient (REF) | payer MEDICARE, MEDICAID, SELFPAY ==
--- NOTE | ~2023-04-29 | MM_ITS ---
EXAMINATION: MM SCREENING DIGITAL BREAST TOMOSYNTHESIS, BILATERAL CLINICAL INFORMATION: Screening. Asymptomatic. The lifetime risk of breast cancer based on the Tyrer-Cuzick Model is 7%. COMPARISON: Mammography: 04/06/2022 (new baseline). TECHNIQUE: Digital mammography is performed in craniocaudal and mediolateral oblique views along with computer-aided detection (CAD). Digital breast tomosynthesis is performed in implant-displaced craniocaudal and implant-displaced mediolateral oblique views along with computer-aided detection (CAD). Synthesized 2D images are generated from the tomosynthesis. FINDINGS: There are scattered areas of fibroglandular density (ACR BI-RADS breast composition Category b). There are no significant masses, abnormal calcifications, or other abnormalities. Bilateral implant contours are smooth and similar to prior exam. Parenchymal pattern is similar to the prior study. No architectural abnormality. The axilla and skin contours are unremarkable. No significant changes. MM/MM tomosynthesis screen imp BI IMPRESSION: No mammographic evidence of malignancy. ASSESSMENT: BI-RADS 1: Negative RECOMMENDATION: Routine annual mammography screening. This patient's information was entered into a reminder system with a target due date for their next mammogram.
== END 2023-04-29 12:58 | disposition home or self-care (01) ==
LOC: HO.MAMMO 12:57
PROVIDERS: PCP Nurse Practitioner Primary Care; Visit Provider Nurse Practitioner Primary Care
DX: Z12.31 Encounter for screening mammogram for malignant neoplasm of breast (principal)
CPT/HCPCS: 77063; 77067

== ENCOUNTER 2023-09-08 09:04 | Outpatient (REF) | payer OTHER, SELFPAY ==
[2023-09-11 23:47] LABS: VITAMIN D (1,25 OH) D3 53 pg/mL; Vit D (1,25-Dihydroxy) Total 53 pg/mL (18-72); Vitamin D (1,25 OH) D2 <8 pg/mL
== END 2023-09-08 09:05 | disposition home or self-care (01) ==
LOC: HO.HHCL 09:04
PROVIDERS: Visit Provider Nurse Practitioner Primary Care
DX: E11.9 Type 2 diabetes mellitus without complications (principal); E03.9 Hypothyroidism, unspecified; E55.9 Vitamin D deficiency, unspecified
CPT/HCPCS: 36415; 80061; 82652; 84439; 84443

== ENCOUNTER 2023-10-27 14:00 | Outpatient (RCR) | payer OTHER, SELFPAY | END 2023-11-18 08:35 | disposition home or self-care (01) | LOC: HO.PT 14:00 | PROVIDERS: PCP Nurse Practitioner Primary Care; Visit Provider Nurse Practitioner Primary Care | DX: M54.9 Dorsalgia, unspecified (principal); N62 Hypertrophy of breast | CPT/HCPCS: 97110; 97161 ==

== ENCOUNTER 2023-11-24 08:36 | Outpatient (REF) | payer OTHER, SELFPAY ==
[2023-11-24 12:30] LABS: Anion Gap 10 (12-20); Blood Urea Nitrogen 12 mg/dL (9-16); Calcium 9.8 mg/dL (8.4-10.2); Carbon Dioxide 27 mmol/L (22-29); Chloride 106 mmol/L (96-108); Estimated Glomerular Filt Rate > 60; Glucose Random 91 mg/dL (60-115); Potassium 4.2 mmol/L (3.3-5.1); Sodium 139 mmol/L (135-145)
[2023-11-24 12:35] LABS: TSH reflex Free T4 0.05 uIU/mL (0.32-4.0)
== END 2023-11-24 08:37 | disposition home or self-care (01) ==
LOC: HO.HHCL 08:36
PROVIDERS: Visit Provider Nurse Practitioner Primary Care
DX: I10 Essential (primary) hypertension (principal); E03.9 Hypothyroidism, unspecified
CPT/HCPCS: 36415; 80048; 84439; 84443

== ENCOUNTER 2024-06-23 16:03 | Outpatient (REF) | payer OTHER, SELFPAY ==
[2024-06-23 16:45] LABS: Appearance Urine Clear; Color Urine Yellow; Glucose Urine UA Negative (Negative); Leukocyte Esterase Urine Small (1+) (Negative); Nitrite Urine Negative (Negative); PH 5.5 (5.0-9.0); Specific Gravity - Urine <= 1.005 (1.005-1.025); UMIC TRIGGER UACC YES; Urine Blood Negative (Negative); Urine Ketones Negative (Negative); Urine Protein Negative (Neg-Trace)
[2024-06-23 16:49] LABS: Bacteria Urine None Seen (None Seen); Hyaline Casts Urine 0-2 /LPF (0-2); RBC Urine 0-2 /HPF (0-2); Squamous Epithelial Cell Urine 0-2 /HPF (0-2); UACC Culture Trigger YES
== END 2024-06-23 16:04 | disposition home or self-care (01) ==
LOC: HO.HHCLNP 16:03
PROVIDERS: Visit Provider Nurse Practitioner Primary Care
DX: R82.90 Unspecified abnormal findings in urine (principal)
CPT/HCPCS: 81001; 87086

== ENCOUNTER 2024-06-26 13:01 | Outpatient (REF) | payer OTHER, SELFPAY ==
--- NOTE | ~2024-06-26 | MM_ITS ---
EXAMINATION: MM SCREENING DIGITAL BREAST TOMOSYNTHESIS, BILATERAL WITH BREAST IMPLANTS CLINICAL INFORMATION: Screening. Asymptomatic. COMPARISON: Mammography: This study is compared with prior breast imaging dating back to 2021. TECHNIQUE: Digital mammography is performed in craniocaudal and mediolateral oblique views along with computer-aided detection (CAD). Digital breast tomosynthesis is performed in implant-displaced craniocaudal and implant-displaced mediolateral oblique views along with computer-aided detection (CAD). Synthesized 2D images are generated from the tomosynthesis. FINDINGS: There are scattered areas of fibroglandular density (ACR BI-RADS breast composition Category b). There are bilateral, mammographically intact, retropectoral saline breast implants. There are no significant masses, abnormal calcifications, or other abnormalities. MM/MM tomosynthesis screen imp BI IMPRESSION: No mammographic signs of malignancy. ASSESSMENT: BI-RADS BI-RADS 1 - Negative RECOMMENDATION: Routine annual mammography screening. 1 year F/U This patient's information was entered into a reminder system with a target due date for their next mammogram.
== END 2024-06-26 13:02 | disposition home or self-care (01) ==
LOC: HO.MAMMO 13:01
PROVIDERS: Visit Provider Nurse Practitioner Primary Care
DX: Z12.31 Encounter for screening mammogram for malignant neoplasm of breast (principal)
CPT/HCPCS: 77063; 77067

== ENCOUNTER → 2024-06-26 13:45 | Outpatient (BNV) | payer OTHER, SELFPAY | PROVIDERS: Visit Provider Radiology Diagnostic Radiology | DX: Z12.31 Encounter for screening mammogram for malignant neoplasm of breast (principal) | CPT/HCPCS: 77063; 77067 ==

== ENCOUNTER 2024-06-27 13:11 | Outpatient (REF) | payer OTHER, SELFPAY ==
[2024-06-27 17:24] LABS: Cholesterol 153 mg/dL (<200); HDL Cholesterol 51 mg/dL (>40); LDL Cholesterol Calculated 84 mg/dL (<100); Triglycerides 94 mg/dL (<150)
[2024-06-27 17:39] LABS: TSH reflex Free T4 0.12 uIU/mL (0.32-4.0); Vitamin D 25-OH Total 57.7 ng/mL (>30)
[2024-06-27 18:19] LABS: Free T4 (Free Thyroxine) 1.43 ng/dL (0.71-1.85)
== END 2024-06-27 13:12 | disposition home or self-care (01) ==
LOC: HO.HHCL 13:11
PROVIDERS: Visit Provider Nurse Practitioner Primary Care
DX: E11.9 Type 2 diabetes mellitus without complications (principal); R79.89 Other specified abnormal findings of blood chemistry; E03.9 Hypothyroidism, unspecified
CPT/HCPCS: 36415; 80061; 82306; 84439; 84443

== ENCOUNTER 2025-07-02 12:52 | Outpatient (AMB) | payer OTHER, SELFPAY ==
--- NOTE | 2025-07-02 12:54 | MHC.OFFVIS ---
Vital Signs 07/02/25 13:01 Height 5 ft 6 in Weight 175 lb BMI 28.2 BP 156/86 H Blood Pressure Location Rt brachial Position Sitting Pulse 94 Pulse Source Pulse Oximeter Pulse Oximetry (%) 97 Oxygen Delivery Method Room Air Intake Visit Reasons: colo screening Intake Note: New pt for colo screening. + Cologuard per PCP. CC: Pt denies any GI sx or concerns at this time. Pt states her Rx are working as intended. Merchant Mariner Required: Yes Merchant Mariner Services: Merchant Mariner Offered & Declined Accompanied by: Self / Same As Patient Allergies olanzapine Allergy (Severe, Verified 07/02/25 13:07) Liver Toxicity iodine Adverse Reaction (Verified 07/02/25 13:07) Rash Sulfa (Sulfonamide Antibiotics) Adverse Reaction (Verified 07/02/25 13:07) Rash Medication List - Last Reconciled 07/02/25 by DAYANARA CohnP-BC acetaminophen (Tylenol Extra Strength) 500 mg PO Q6H PRN atorvastatin 40 mg PO QAM blood sugar diagnostic (Think-Nowuch Verio test strips) As directed bupropion HCl XL 150 mg PO DAILY buspirone 15 mg PO TID cetirizine 10 mg PO DAILY PRN clonazepam 1 mg PO BID PRN duloxetine 40 mg PO BEDTIME gabapentin 800 mg PO DAILY lancets (TesarisTouch Delica Plus Lancet) As directed levothyroxine 175 mcg PO Q OTHER DAY lidocaine 5% 1 patch topical DAILY lisinopril 2.5 mg PO QAM metoclopramide HCl 5 mg PO Q8H PRN naproxen 500 mg PO BID PRN 10 days nicotine 1 patch transdermal Q24H pantoprazole 40 mg PO DAILY topiramate 50 mg PO DAILY HPI HPI colo screening: Details: 59 year old? female with past medical history of diabetes, hyperlipidemia, hyperthyroidism, hypertension, GERD and anxiety is here today for pre colonoscopy screening.? Patient was sent to us by her PCP.? Patient had positive Cologuard test. Patient denies any gastrointestinal symptoms in the past or at present. Patient reports acid reflux controlled with pantoprazole. Patient no longer is taking Reglan only on as needed basis. ? Denies any personal or family history of gastrointestinal disease, colon polyps, or CRC.? Denies history of difficulty with sedation or anesthesia in the past.? Negative for history of sleep apnea.? Denies any history of cardiac, renal, pulmonary, or hepatic disease.?? No history of infectious? diseases like hepatitis A, B, C, HIV or tuberculosis.? Patient is not on any anticoagulation [facility] Medical History (Updated 07/02/25 @ 13:12 by Lisa Anaya, [facility]) Positive colorectal cancer screening using Cologuard test GERD (gastroesophageal reflux disease) Nicotine dependence Chronic pain Hypothyroidism Diabetes Anxiety and depression Hyperlipidemia Panic attack Social History Household Members: None Alcohol intake: never Patient Tobacco Use Status: Former Tobacco user Tobacco use type: Cigarette Years Smoked: 30 years Substance Use Type: Crack/Cocaine and Other Review of Systems Const Denies weight gain and Denies weight loss ENT Reports no additional complaints, Denies dysphagia and Denies odynophagia Card Reports no additional complaints Resp Reports no additional complaints GI Denies abdominal pain, Denies belching, Denies melena, Denies bloating, Denies change in bowel habits, Denies dysphagia, Denies excessive flatus, Denies dyspepsia, Denies heartburn, Denies diarrhea, Denies loose stools, Denies nausea, Denies odynophagia and Denies vomiting Musc Reports no additional complaints Neuro Reports no additional complaints Psych Reports no additional complaints Endo Reports no additional complaints Physical Exam Vital Signs: Last Vital Signs Pulse 94 07/02/25 13:01 BP 156/86 H 07/02/25 13:01 Pulse Ox 97 07/02/25 13:01 Oxygen Delivery Method Room Air 07/02/25 13:01 BMI result Body Mass Index 28.2 Const General: healthy appearing, no acute distress and well developed Nutritional Appearance: well nourished Orientation/consciousness: patient oriented x3 Resp Effort & Inspection: normal respiratory effort, able to speak in complete sentences, no tracheal deviation and symmetric chest movement Auscultation: clear to auscultation bilaterally Cardio Rate: regular rate GI Inspection: Yes normal to inspection and No distended Palpation (GI): Soft to palpation, not firm, nontender and No hepatosplenomegaly present Auscultation: normal bowel sounds General: Yes no CVA tenderness Back/Spine/Pelvis Back: no CVA tenderness Skin General skin exam: elasticity normal, turgor normal and dry skin Neuro General: patient oriented x3 Psych Appearance: grossly normal Mental Status: mental status grossly normal Assessment & Plan Assessment & Plan (1) Positive colorectal cancer screening using Cologuard test: Code(s): R19.5 - Other fecal abnormalities Category: Medical (2) Screen for colon cancer: Code(s): Z12.11 - Encounter for screening for malignant neoplasm of colon Plan Patient denies any GI, cardiac or respiratory symptoms.? Patient is on pantoprazole and her symptoms of acid reflux are suppressed. Patient is using Reglan is needed for nausea. Patient will be sent for upper endoscopy to rule out gastritis, esophagitis, duodenitis, gastric or peptic ulcer, H pylori. Denies any issues with anesthesia in the past.? Denies any history of sleep apnea.? No history infectious diseases in the past or present.? Not on any anticoagulation therapy.? No family or personal history of colon cancer or polyps.? Patient denies melena, hematochezia, unintentional weight loss or ribbon like stools.? Discussed at length the pre-procedure,? prep, diet & medications as well as what to expect prior, during and after the procedure.?? Stressed the importance of good bowel prep.? Recommended the use of Vaseline or Calmoseptine OTC & baby wipes with bowel movements to promote comfort.? ?Patient verbalizes understanding and agrees to plan of care.? She was given the opportunity to ask questions and all questions answered.? We will see her after the procedure.? Patient was on Trulicity and just stopped taking it few weeks ago. Patient will be seeing her PCP and will discuss with her possibly going down to maintenance dose. Medications: New polyethylene glycol 3350 (Miralax) As directed by gastro[facility]ology department at [facility] 238 grams PO ONCE 238 grams 0RF Z12.11 - Encounter for screening for malignant neoplasm of colon bisacodyl (Dulcolax (bisacodyl)) 10 mg (2 x 5 mg) PO BEDTIME 180 tabs 4RF Coding Level of Care Code New Pt Level 3 (79443) Diagnoses Positive colorectal cancer screening using Cologuard test R19.5 Screen for colon cancer Z12.11 Time Spent (min) 40 Comment 30 minutes spent with patient and additional 10 minutes spent reviewing her records
[2025-07-02 13:01] VITALS: BP 156/86; PULSE 94; O2SAT 97; BMI 28.2
--- OUTSIDE RECORDS SUMMARY | 2025-07-02 13:11 | XMS_ITS | Encounter Summary ---
Author Organization [employer] Address [address] [place] [address] Care Team Providers Care Sprue Knocker Name Role Phone Jessy Randall Primary Care Provider [phone] Reason for Visit * Reason Comments Med Refill Encounter Details Date Type Department Care Team ([facility] Contact Info) Description 11/19/2022 Refill [facility] [address] [place] [phone] Jessy Randall ANP [address] [place] [address] Anxiety disorder, unspecified Social History Tobacco Use Types Packs/Day Years Used Date Smoking Tobacco: Never Passive Smoke Exposure: Never Smokeless Tobacco: Never Alcohol Use Standard Drinks/Week Comments Never 0 (1 standard drink = 0.6 oz pur e alcohol) Comments Unknown Sex and Gender Information Value Date Recorded Sex Assigned at Female 09/28/2022 10:37 AM EDT Legal Sex Female 10:37 AM EDT Gender Identity Female 09/28/2022 10:37 AM EDT Sexual Orientation Straight 09/28/2022 10 :37 AM EDT COVID-19 Exposure Response Date Recorded In the last 10 days, have yo u been in contact with someone who was confirmed or suspected to have Coronavirus/COVID-19? No / Unsure 11/16/2022 2:18 PM EST documented as of this encounter Plan of Treatment Upcoming Encounters Date Type Department Care Team ([facility] Contact Info) Description 07/09/2025 2:00 PM EDT Office Visit [facility]INE [address] [place] [address] Jessy Randall ANP [address] [place] [address] 09/21/2025 10:15 AM EDT Office Visit [facility]INE [address] [place] [phone] Zach Lewis MD [address] [place] [address] documented as of this encounter Visit Diagnoses Diagnosis Anxiety disorder, unspecified documented in this encounter Care Teams Sprue Knocker Relationship Specialty Start Date End Date Jessy Randall ANP [address] [place] [phone] PCP - General Family Medicine 07/21/21 documented as of this encounter
== END 2025-07-02 13:24 | disposition home or self-care (01) ==
LOC: HO.HGI 12:53
PROVIDERS: PCP Nurse Practitioner Primary Care; Visit Provider Nurse Practitioner Family
DX: R19.5 Other fecal abnormalities (principal); Z12.11 Encounter for screening for malignant neoplasm of colon
CPT/HCPCS: 99024

== ENCOUNTER 2025-07-03 | Outpatient (REF) | payer OTHER, SELFPAY ==
--- OUTSIDE RECORDS SUMMARY | 2025-08-06 11:02 | XMS_ITS | Encounter Summary ---
Author Organization [employer] Address 75 [facility] 7t [place] [address] Care Team Providers Care Electronic Sensing Equipment Assembler Name Role Phone Jessy Randall Primary Care Provider [phone] Reason for Visit * Reason Onset Date Comments Med Refill 11/25/2023 Encounter Details Date Type Department Care Team ([facility] st Contact Info) Description 11/25/2023 Telephone [facility] MEDICINE 230 [place] [address] Jessy Randall ANP 230 [place] [address] Med Refill Social History Tobacco Use Types [...] 9:33 AM EST Medication was sent to [facility] on 11/04/23. * Telephone Encounter - Mihaela Schwab - 11/25/2023 9:29 AM EST TC from pt requesting medication refill. Medications needing refill : dulaglutide (Trulicity) 0.75 MG/0.5ML solution pen-injector [facility] documented in this encounter Plan of Treatment Upcoming Encounters Date Type Department Care Team (Late st Contact Info) Description 09/21/2025 10:15 AM EDT Office Visit [facility] MEDICINE [address] [place] [address] Zach Lewis MD [address] [place] [address] documented as of this encounter Visit Diagnoses Not on filedocumented in this encounter Care Teams Electronic Sensing Equipment Assembler Relationship Specialty Start Date End Date Jessy Randall ANP 230 [place] [address] PCP - General Family Medicine 07/21/21 documented as of this encounter
--- OUTSIDE RECORDS SUMMARY | 2025-08-06 11:02 | XMS_ITS | Clinical Summary ---
Author Organization 175 [facility] Address 175 [place] [address] Phone Care Team Providers Care Visual Merchandising Specialist Name Role Phone Tonia Jessy Quigley NP Primary Care Provider [phone] Social History Tobacco Use Types Packs/Day Years Used Date Smoking Tobacco: Never Assessed Comments Unknown Sex and Gender Information Value Date Recorded Sex Assigned at Not on file Legal Sex Female 11:40 AM EDT Gender Identity Not on file Sexual Orientation Not on file Plan of Treatment Upcoming Encounters Date Type Department Care Team ([facility] Contact Info) Description 08/29/2025 2:15 PM EDT Consult Orthopedic Surgery - [place] [address] [phone] Du Guerrero, ALBERT [address] [address] Health Maintenance Due Date Last Done Comments [...] patient's age to complete this topic Insurance [facility] MEDICARE Member Subscriber Plan / Payer (Ef fective 2023-Present) Name:RACHEL MYERS Relation to Subscriber:Self Name:Rachel Myers Payer ID:[id number] Group ID:[id number] Type:Not on file Address: [facility] [address] [id number] Care Teams Visual Merchandising Specialist Relationship Specialty Start Date End Date Jessy Randall NP [address] [place] [address] 1 [place] [address] [facility] - General 06/28/24
--- OUTSIDE RECORDS SUMMARY | 2025-08-06 11:02 | XMS_ITS | Clinical Summary ---
Author Organization [employer] Address [address] [facility] 7t [place] [address] Care Team Providers Care Commercial Agent Name Role Phone Tawana Castle KAVITA Primary Care Provider [phone] Allergies Active Allergy Reactions Criticality Noted Date [...] Health Integration Plan Internal Follow up with [facility], Group GBOT Patient Self Plan Patient to utilize skills provided in intervention , Patient to reach out to [facility] team as needed, and Patient to follow-up [...] Department Care Team Description 07/31/2025 Patient Outreach [facility] [place] [address] Daniel Trevizo Recovery Supports 07/26/2025 Refill [facility] [place] [address] Tawana Castle ANP Nicotine dependence, unspecified, uncomplicated 07/24/[address] [place] [address] Tawana Castle ANP Telephone call 07/24/2025 Patient Outreach [facility] [place] [address] Daniel Trevizo Recovery Supports 07/24/2025 Orders Only [facility] [place] [address] Tawana Castle ANP 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) 07/18/[address] [place] [address] Tawana Castle ANP Results 07/18/2025 Refill [facility] [address] Tawana Castle ANP Hypothyroidism, unspecified type 07/17/2025 Patient Outreach [facility] [address] Hugo Calhoun Recovery Supports 07/17/2025 Refill [facility] [address] [place] [address] Tawana Castle ANP Pain 07/13/2025 Results Follow-Up [facility] [address] Tawana Castle ANP TSH W/Reflex to FT4, Hemoglobin A1c, Basic Metabolic Panel 07/12/2025 Results Follow-Up [facility] [place] [address] Tawana Castle ANP POCT Glucose, POCT HGB A1C, Culture, Urine, Routine, Additional followed-up results: 3 07/12/2025 Results Follow-Up [address] [place] [address] Tawana Castle ANP T-SPOT .TB, XR Chest 2 Views 07/09/2025 2:00 PM EDT Office Visit [facility] MEDICINE [address] [place] [address] Tawana Catsle ANP Type 2 diabetes mellitus with hyperlipidemia (CMS/HCC) (CMS/HCC) (Primary Dx); Acute cystitis with hematuria; Routine screening for STI (sexually transmitted infection); Nausea; Acute midline low back pain without sciatica; Onychomycosis; Leg cramping 07/09/2025 Travel 07/09/2025 Refill [facility] [address] [address] Cesia Cooley MD Urinary tract infection without hematuria, site unspecified 07/06/[address] [address] Tawana Castle ANP chart prep 06/29/2025 Patient Outreach [address] [address] Tawana Castle ANP Pre-visit Planning (Pre-visit planning - LVM ) 06/28/[address] [address] Tawana Castle ANP Med Refill 06/08/2025 Refill [facility] [address] [place] [address] Tawana Castle ANP Pain 06/06/2025 Refill [facility] [address] [place], [place] [phone] Tawana Castle ANP Anxiety 05/07/2025 2:00 PM EDT Office Visit [facility] [address] [address] Cesia Cooley MD Urinary tract infection without [...] Description 09/21/2025 10:15 AM EDT Office Visit [facility]INE [address] [place] [address] Zach Lewis MD [address] [place] [address] Health Maintenance Due Date Last Done Comments [...] Procedure Name Priority Date/Time Associated Diagnosis Comments CBC WITH AUTO DIFFERENTIAL Routine 08/03/2025 10:21 AM EDT Leg cramping XR CHEST 2 VIEWS Routine 07/13/2025 12:4 [...] Recently Relevant to Health Maintenance Results * (ABNORMAL) CBC auto differential (08/03/2025 10:21 AM EDT) White Blood Count 6.3 4.8 - 10.8 X10*3/uL [facility] Red Blood Count 3.61(L) 4.20 - 5.50 X10*6/uL [facility] Hemoglobin 11.8(L) 12.0 - 16.0 g/dl [facility] Hematocrit 35.4(L) 37.0 - 47.0 % [facility] Mean Corpuscular Volume 98.1(H) 80.0 - 98.0 fL [facility] Mean Corpuscular Hemoglobin 32.7 27.0 - 33.0 pg [facility] Mean Corpuscular HGB Conc 33.3 31.0 - 35.0 g/dl [facility] Red Cell Distribution Width 13.6 11.0 - 16.0 % [facility] Platelet Count 225 160 - 400 X10*3/uL [facility] Mean Platelet Volume 12.5(H) 9.4 - 12.3 fL [facility] Neutrophils Percent Auto 59.1 45 - 73 % [facility] Imm Gran Pct Auto 0.3 0.0 - 0.4 % [facility] Lymphocytes Percent Auto 29.7 20 - 40 % [facility] Monocytes Percent Auto 8.1 2 - 11 % [facility] Eosinophils Percent Auto 2.2 0 - 4 % [facility] Basophils Percent Auto 0.6 0 - 2 % [facility] NRBC Pct Auto 0.0 0.0 - 0.2 /100WBC [facility] Neutrophils Absolute Auto 3.7 2.0 - 8.3 x10*3/uL [facility] Imm Gran Abs Auto 0.02 0.00 - 0.03 X10*3/uL [facility] Lymphocytes Absolute Auto 1.9 1.2 - 4.9 X10*3/uL [facility] Monocytes Absolute Auto 0.5 0.1 - 1.2 X10*3/uL [facility] Eosinophils Absolute Auto 0.1 0.0 - 0.4 X10*3/uL [facility] Basophils Absolute Auto 0.0 0.0 - 0.2 X10*3/uL [facility] NRBC Abs Auto 0.000 0.0 - 0.012 X10*3/uL [facility] Blood Venous blood specimen / Unknown 08/03/2025 10:21 AM EDT 08/03/2025 11:13 AM EDT Tawana Castle [facility] BLOOD ORDERABLES Final Resul t [facility] [address] [place] [address] [phone] * XR Chest 2 Views (07/13/2025 12:49 PM EDT) Anatomical Region Laterality Modality Chest Radiographic Catherine ging 07/13/2025 12:4 9 PM EDT Narrative 07/13/2025 2:06 PM EDT [address] [address] XRay Report Signed Patient: Rachel Myers MR#: [id number] : 1965 Acct:[id number] Age/Sex: 59 / F ADM Date: 07/13/25 Loc: [facility] Attending Dr: Tawana Castle FUEL CELL DESIGNER Ordering Physician: TAWANA CASTLE NP Date of Service: 07/13/25 Procedure(s): XR chest 2V Accession Number(s): [id number] cc: TAWANA CASTLE NP EXAMINATION: XR CHEST [...] Jim Riggs MD 07/13/2025 02:04 PM EDT Dictated By: Jim Riggs MD Signed By: <Electronically signed by Jim Riggs MD in OV> 07/13/25 1404 DD/ 1249 TD/TT: 07/13/25 1300 Certified Physician'S Assistant: Procedure Note Donotuseinterpreter, Image - 07/13/[address] [address] XRay Report Signed Patient: Martín MyersR#: M [id number] : 1965Acct:[id number] Age/Sex: 59 / FADM Date: 07/13/25 Loc: TAYLOR Attending Dr: Tawana Castle FUEL CELL DESIGNER Ordering Physician: TAWANA CASTLE NP Date of Service: 07/13/25 Procedure(s): XR chest 2V Accession Number(s): [id number] cc: CASTLE,TAWANA FUEL CELL DESIGNER EXAMINATION: XR CHEST 2 VIEWS HISTORY: positive [...] 07/13/25 1404 DD/ 1249 TD/TT: 07/13/25 1300 Certified Physician'S Assistant: Tawana Castle ANP IMG XR PROCEDURES Final Result * Chlamydia/N. Gonorrhoeae RNA, TMA, Vagina (07/09/2025 2:46 PM EDT) CT PCR NOT DETECTED Not Detect. [facility] Comment:A not detected test result does [...] psychologicalconsequences. NG PCR NOT DETECTED Not Detect. [facility] Comment:A not detected test result does [...] 2:46 PM EDT 07/09/2025 4:42 PM EDT Tawana Castle [facility] MICROBIOLOGY - GENERAL ORDER SUNDAR Final Result Performing Organization Address [facility] Co de Phone Number [facility] [address] [place] [phone] * Culture, Urine, Routine (07/09/2025 2:46 PM EDT) Urine Urine specimen obtained by clean catch procedure / Unknown 07/09/2025 2:46 PM EDT 07/09/2025 4:42 PM EDT Comment:CC Narrative [facility] - 07/12/2025 1:29 PM EDT Escherichia [...] Trimethoprim/Sulfamethoxazole >=320(R) Specimen Source: Urine clean catch Tawana Castle [facility] MICROBIOLOGY - GENERAL ORDER SUNDAR Final Result Performing Organization Address [facility]/ZIP Co de Phone Number [facility] [address] [place] [phone] * (ABNORMAL) POCT Urinalysis (07/09/2025 2:20 [...] Media Lot # [id number] Lot# Expiration Date 346 Urine 07/09/2025 2:20 PM EDT us Tawana Castle [facility] POINT OF CARE TEST ENTER/EDIT OR DERABLES Final Result * POCT HGB A1C (07/09/2025 2:18 PM EDT) Hemoglobin A1C 5.6 4.0 - 5.7 % QC Media Lot # [id number] Lot# Expiration Date Blood 07/09/2025 2:18 PM EDT us Tawana Castle [facility] POINT OF CARE TEST ENTER/EDIT OR DERABLES Final Result * POCT Glucose (07/09/2025 2:18 PM EDT) Glucose Blood, POC 111 60 - 200 mg/dL QC Media Lot # [id number] Lot# Expiration Date 383 Blood Capillary blood specimen / Unknown 07/09/2025 2:18 PM EDT us Tawana Castle [facility] POINT OF CARE TEST ENTER/EDIT OR DERABLES Final Result * TSH W/Reflex to FT4 (07/09/2025 1:34 PM EDT) TSH reflex Free T4 1.10 0.32 - 4.0 uIU/mL [facility] Blood Venous blood specimen / Unknown 07/09/2025 1:34 PM EDT 07/09/2025 4:04 PM EDT Tawana Castle ANP LAB BLOOD ORDERABLES Final Resul t Performing Organization Address [facility] Co de Phone Number [facility] [address] [place] [phone] * Hemoglobin A1c (07/09/2025 1:34 PM EDT) Hemoglobin A1c 5.4 <6.0 % [facility] Comment:Hemoglobin A1C Refer ence Range Adults: 4.8 - 6.0 % Non diabetic: < 6.0 % Goal: < 7.0 %Additional Action Suggested: > 8.0 %Note: Hemoglobin A1c results are invalid for patients with abnormal amounts of HbF. Blood transfusions may impact the HbA1c concentration in the patient sample. Estimated Average Glucose 108 mg/dL [facility] Comment:eAG = Estimated ave rage glucose which is %A1C expressed asaverage glucose, using the formula of the T1P-QcfgqrkVzcwtmt Glucose study (ADAG), Diabetes Care, Vol.31,#8,Jun. 2007 Blood Venous blood specimen / Unknown 07/09/2025 1:34 PM EDT 07/09/2025 4:04 PM EDT Tawana Castle ANP LAB BLOOD ORDERABLES Final Resul t Performing Organization Address [facility] Co de Phone Number [facility] [address] [place] [address] [phone] * (ABNORMAL) Basic Metabolic Panel (07/09/2025 1:34 PM EDT) Sodium 138 135 - 145 mmol/L [facility] Potassium 4.7 3.3 - 5.1 mmol/L [facility] Chloride 104 96 - 108 mmol/L [facility] Carbon Dioxide 26 22 - 29 mmol/L [facility] Anion Gap 13 12 - 20 [facility] Urea Nitrogen (BUN) 20(H) 9 - 16 mg/dL [facility] Creatinine, Serum 0.89 0.5 - 1.4 mg/dL [facility] Estimated Glomerular Filt Rate >60 [facility] Comment:Chronic Kidney Disea se: Estimated GFR < 60 mL/min/1.63z0Vwnhgj Kidney Disease: Estimated GFR < 15 mL/min/1.73m2 Glucose 91 60 - 115 mg/dL [facility] Calcium 9.3 8.4 - 10.2 mg/dL [facility] Blood Venous blood specimen / Unknown 07/09/2025 1:34 PM EDT 07/09/2025 4:04 PM EDT [facility] LAB BLOOD ORDERABLES Final Resul t [facility] [address] [place] [phone] * (ABNORMAL) T-SPOT??.TB (07/09/2025 1:24 PM EDT) T Spot TB Positive( A) Negative [facility] Comment: Diagnosing or excluding tuberculosis (TB) [...] as aquantitative test. TS PANEL A 6 [facility] TS PANEL B 11 [facility] Negative Control Passed [facility] Positive Control Passed [facility] Comment:For additional infor salvador, please refer tohttp://education.[employer]/faq/FVT492(This link is being provided for informational/educational purposes only.)THIS TEST WAS PERFORMED AT:[employer] [id number] [place] [address]UEYVSAKLYNETTE MORAES MD,PHD 07/09/2025 1:24 PM EDT 07/09/2025 4:04 PM EDT Tawana [facility] BLOOD ORDERABLES Final Resul t [facility] [address] [place] [phone] * POCT Rapid COVID Ag (05/07/2025 2:08 PM EDT) Pathologist [facility] Rapid COVID Ag Negative Swab 05/07/2025 2:08 PM EDT Cesia Cooley MD POINT OF CARE TEST ENTER/EDIT OR DERABLES Final Result * (ABNORMAL) Cologuard?? colon cancer screening (02/11/2025 11:00 AM EDT) Cologuard Result Positive( A) Negative 02/16/2025 11:55 PM EDT [facility] (CLIA #:[id number]) Comment: POSITIVE TEST RESULT. A positive Cologuard [...] (Julissa Todd al, N Engl J Med 2014;370(14):1759-9656.) Cologuard may produce a false negative or false positive result (no colorectal cancer or precancerous polyp present at colonoscopy follow up). A negative Cologuard test result does not guarantee the absence of CRC or advanced adenoma (pre-cancer). The current Cologuard screening interval is every 3 years. ([place] [employer] Society and U.S. Multi-Society Task Force). Cologuard performance data in a 10,000 patient pivotal study using colonoscopy as the reference method can be accessed at the following location: www.[employer]/results. Additional description of the Cologuard test process, warnings and precautions can be found at www.NeofectogEggCartelrd.com. Stool specimen (specimen) 02/11/2025 11:00 AM EDT 02/13/2025 11:55 AM EDT [facility] MOLECULAR DIAGNOSTICS ORDERA BLES Final Result [facility] (CLIA #:[id number]) [address] [place] [address], * Lipid Panel, Standard (06/27/2024 1:15 PM EDT) Triglycerides 94 <150 mg/dL [facility] Comment:Desirable Triglyceri de: less than 150 mg/dLBorderline High Triglyceride 150-199 mg/dLHigh Triglyceride: 200-499 mg/dLVery High Triglyceride: greater than or equal to 5OO mg/dL Cholesterol 153 <200 mg/dL [facility] Comment:Desirable Cholestero l: less than 200 mg/dLBorderline High Cholesterol: 200-239 mg/dLHigh Cholesterol: greater than 239 mg/dL LDL Cholesterol Calculated 84 <100 mg/dL [facility] Comment:Desirable LDL: less than 100 mg/dLNear Optimal/Above Optimal LDL: 110- 129 mg/dLBorderline High LDL: 130-159 mg/dLHigh LDL: 160-189 mg/dLVery High LDL: greater than or equal to 190 mg/dL HDL Cholesterol 51 >40 mg/dL [facility] Comment:Desirable HDL: great er than 40 mg/dL Note: This HDL assay may give artificially low results in patients with liver disease. Blood Venous blood specimen / Unknown 06/27/2024 1:15 PM EDT 06/27/2024 4:50 PM EDT Tawana Castle [facility] BLOOD ORDERABLES Final Resul t [facility] [address] [place] [phone] * BI Mammogram Screen w/ Gregg w/ Implants Uriel (06/26/2024 1:44 PM EDT) Anatomical Region Laterality Modality Mammography 06/26/2024 1:44 PM EDT Narrative 07/05/2024 6:54 PM EDT [facility] [address] [place] [address] Mammography Report Signed Patient: Rachel Myers MR#: M [id number] : 1965 Acct:[id number] Age/Sex: 58 / F ADM Date: 06/26/24 Loc: RONAL Attending Dr: Tawana Castle FUEL CELL DESIGNER Ordering Physician: CASTLE,TAWANA FUEL CELL DESIGNER Results: 1Negative Date of Service: 06/26/24 Follow Up: 1 Year From Orig inal Mammogram Procedure(s): MM tomosynthesis screen imp BI Accession Number(s): [id number] cc: TAWANA CASTLE NP EXAMINATION: MM SCREENING [...] in OV> 07/05/24 1849 DD/ 1344 TD/TT: Certified Physician'S Assistant: Procedure Note Donotuseinterpreter, Image - 07/05/2024 [place] [facility] [address] [place], [place] [address] Mammography Report Signed Patient: Nakita Myers#: M [id number] : 1965Acct:[id number] Age/Sex: 58 / FADM Date: 06/26/24 Loc: RONAL Attending Dr: Tawana Castle NP Ordering Physician: TAWANA CASTLE NPResults: 1Negative Date of Service: 06/26/24Follow Up: 1 Year From Orig inal Mammogram Procedure(s): MM tomosynthesis screen [facility] BI Accession Number(s): [id number] cc: TAWANA CASTLE NP EXAMINATION: MM SCREENING [...] calcifications, or other abnormalities. MM/MM tomosynthesis screen [facility] BI IMPRESSION: No mammographic signs of malignancy. ASSESSMENT: BI-RADS BI-RADS 1 - Negative RECOMMENDATION: Routine annual mammography screening. 1 year F/U This patient's information was entered into a reminder system with a target due date for their next mammogram. Dictated By: Shae Brown MD Signed By: <Electronically signed by Shae Brown MD in OV> 07/05/24 1849 DD/ 1344 TD/TT: Certified Physician'S Assistant: Tawana Castle ANP [facility] BI PROCEDURES Final Result * Hepatitis C Antibody with Reflex to HCV, RNA, Quantitative, Real-Time PCR (02/17/2023 8:40 AM EDT) Hepatitis C Antibody NON-REACT MEGAN NON-REACT MEGAN [employer] Index 0.04 <1.00 [employer] Comment: HCV antibody was non-reactive. There is no laboratory evidence of HCV infection. In most cases, no further action is required. However, if recent HCV exposure is suspected, a test for HCV RNA (test code 57200) is suggested. For additional information please refer to http://education.[employer]/faq/XKT02w5 (This link is being provided for informational/ educational purposes only.) Blood Venous blood specimen / Unknown 02/17/2023 8:40 AM EDT 02/17/2023 8:41 AM EDT Narrative [facility] - 02/18/2023 10:35 AM EDT FASTING:YES FASTING: YES Tawana Castle ANP LAB BLOOD ORDERABLES Final Resul t Performing Organization Address [facility] Co de Phone Number [facility] [address], [place] [phone] [employer] [facility] [address] [place] [phone] * HIV-1/2 Antigen and Antibodies, Fourth Generation, with Reflexes (02/17/2023 8:40 AM EDT) [facility] HIV Antigen/Antibody, 4th Generation NON-REAC TIVE NON-REAC TIVE [employer] [facility] Comment: HIV-1 antigen and HIV-1/HIV-2 antibodies [...] purpose. For additional information please refer to http://education.[facility] [facility].[employer]/faq/KNK074 (This link is being provided for informational/ educational purposes only.) The performance of this assay has not been clinically validated in patients less than 2 years old. Blood Venous blood specimen / Unknown 02/17/2023 8:40 AM EDT 02/17/2023 8:41 AM EDT Narrative [facility] - 02/18/2023 10:35 AM EDT FASTING:YES FASTING: YES us Tawana Castle ANP LAB BLOOD ORDERABLES Final Resul t Performing Organization Address City/[facility]/ZIP Co de Phone Number [address], [place] [phone] [employer] [facility] [address] [place] [phone] * ALBUMIN, RANDOM URINE W/CREATININE (08/21/2020 9:49 [...] us Historical Provider LAB URINE ORDERABLES Josefina hamilton Result [facility] [address] [place] [address], from Last 3 Months or Most Recently Relevant to Health Maintenance Insurance [facility] < 65 [place] [id number] Care Teams Commercial Agent Relationship Specialty Start Date End Date Tawana Castle ANP [address] [place] [address] PCP - General Family Medicine 07/21/21
--- OUTSIDE RECORDS SUMMARY | 2025-08-06 11:02 | XMS_ITS | Encounter Summary ---
Author Organization [employer] Address [address] [facility] 7t [place] [address] Care Team Providers Care Curing Pickling Packer Name Role Phone Jessy Randall Primary Care Provider [phone] Encounter Details Date Type Department Care Team (Late Contact Info) Description 01/04/2023 Telephone [facility] [address] [place] [address] Marlene Holley LPN Social History Tobacco Use [...] Description 09/21/2025 10:15 AM EDT Office Visit [facility] [address] [place] [phone] Zach Lewis MD [address] [place] [address] documented as of this encounter Visit Diagnoses Not on filedocumented in this encounter Care Teams Curing Pickling Packer Relationship Specialty Start Date End Date Jessy Randall ANP [address] [place] [phone] PCP - General Family Medicine 07/21/21 documented as of this encounter
--- OUTSIDE RECORDS SUMMARY | 2025-08-06 11:02 | XMS_ITS | Encounter Summary ---
Author Organization [employer] Address [address] [facility] [address]t [place] [address] Care Team Providers Care Otolaryngology Teacher Name Role Phone Jessy Randall Primary Care Provider [phone] Reason for Visit * Reason Comments Med Refill Encounter Details Date Type Department Care Team ([facility] Contact Info) Description 11/25/2022 Refill [facility] [address] [place] [phone] Jessy Randall ANP [address] [place] [address] Anxiety disorder, unspecified Social History Tobacco Use [...] Upcoming Encounters Date Type Department Care Team ([facility] Contact Info) Description 09/21/2025 10:15 AM EDT Office Visit [facility] [address] [place] [phone] Zahc Lewis MD [address] [place] [address] documented as of this encounter Visit Diagnoses Diagnosis Anxiety disorder, unspecified documented in this encounter Care Teams Otolaryngology Teacher Relationship Specialty Start Date End Date Jessy Randall ANP [address] [place] [address] PCP - General Family Medicine 07/21/21 documented as of this encounter
--- OUTSIDE RECORDS SUMMARY | 2025-08-06 11:02 | XMS_ITS | Encounter Summary ---
Author Organization [employer] Address [address] [facility] 7t [place] [address] Care Team Providers Care Hose Tubing Backer Name Role Phone Jessy Randall Primary Care Provider [phone] Reason for Visit * Reason Comments Med Refill Encounter Details Date Type Department Care Team ([facility] st Contact Info) Description 10/15/2023 Refill [facility] [address] [place] [address] Name, MD Osvaldo [address] [place] [address] Social History Tobacco Use Types Packs/Day Years [...] Description 09/21/2025 10:15 AM EDT Office Visit [facility] [address] [place], [place] [phone] Zach Lewis MD [address] [place] [address] documented as of this encounter Visit Diagnoses Not on filedocumented in this encounter Care Teams Hose Tubing Backer Relationship Specialty Start Date End Date Jessy Randall ANP [address] [place] [address] PCP - General Family Medicine 07/21/21 documented as of this encounter
--- OUTSIDE RECORDS SUMMARY | 2025-08-06 11:02 | XMS_ITS | Encounter Summary ---
Author Organization [employer] Address [address] [facility] 7t [place] [address] Care Team Providers Care Turbine Engine Assembler Name Role Phone Jessy Randall Primary Care Provider [phone] Reason for Visit * Reason Onset Date Comments Telephone call 07/24/2025 Encounter Details Date Type Department Care Team ([facility] st Contact Info) Description 07/24/2025 Telephone [facility] MEDICINE [address] [place] [address] Jessy Randall ANP 230 [place] [address] Telephone call Social History Tobacco Use Types [...] The number in the chart has a [place] area code and was unable to be [...] Description 09/21/2025 10:15 AM EDT Office Visit [facility] MEDICINE [address] [place] [address] Zach Lewis MD 230 [place] [address] documented as of this encounter Visit Diagnoses Not on filedocumented in this encounter Additional Health Concerns Assessment Noted Time PHQ-9 Depression Total Score: 0 07/09/20 25 2:17 PM EDT documented as of this encounter Care Teams Turbine Engine Assembler Relationship Specialty Start Date End Date Jessy Randall ANP 230 [place] [address] PCP - General Family Medicine 07/21/21 documented as of this encounter
--- OUTSIDE RECORDS SUMMARY | 2025-08-06 11:02 | XMS_ITS | Encounter Summary ---
Author Organization [employer] Address [address] [facility] 7t [place] [address] Care Team Providers Care Claims Adjudicator Name Role Phone Jessy Randall Primary Care Provider [phone] Reason for Visit * Reason Onset Date Comments Med Change Request 05/04/2024 Encounter Details Date Type Department Care Team ([facility] st Contact Info) Description 05/04/2024 Telephone [facility] MEDICINE [address] [place] [address] Jessy Randall ANP [address] [place] [address] Med Change Request Social History Tobacco Use [...] Description 09/21/2025 10:15 AM EDT Office Visit [facility] MEDICINE [address] [place] [address] Zach Lewis MD [address] [place] [address] documented as of this encounter Visit Diagnoses Not on filedocumented in this encounter Care Teams Claims Adjudicator Relationship Specialty Start Date End Date Jessy Randall ANP [address] [place] [address] PCP - General Family Medicine 07/21/21 documented as of this encounter
--- OUTSIDE RECORDS SUMMARY | 2025-08-06 11:02 | XMS_ITS | Encounter Summary ---
Author Organization [employer] Address [address] [facility] 7t [place] [address] Care Team Providers Care Clinical Trial Coordinator Name Role Phone Jessy Randall Primary Care Provider [phone] Encounter Details Date Type Department Care Team ([facility] st Contact Info) Description 07/12/2025 Results Follow-Up [facility] MEDICINE [address] [place] [address] Jessy Randall, ANP 230 [place] [address] POCT Glucose, POCT HGB A1C, Culture, Urine, Routine, Additional followed-up results: 3 Social History Tobacco Use Types Packs/Day Years [...] Description 09/21/2025 10:15 AM EDT Office Visit [facility] MEDICINE 230 [place] [address] Zach Lewis MD [address] [place] [address] documented as of this encounter Visit Diagnoses Not on filedocumented in this encounter Additional Health Concerns Assessment Noted Time PHQ-9 Depression Total Score: 0 07/09/20 25 2:17 PM EDT documented as of this encounter Care Teams Clinical Trial Coordinator Relationship Specialty Start Date End Date Jessy Randall ANP 230 [place] [address] PCP - General Family Medicine 07/21/21 documented as of this encounter
--- OUTSIDE RECORDS SUMMARY | 2025-08-06 11:02 | XMS_ITS | Encounter Summary ---
Author Organization [employer] Address [address] [facility] 7t [place] [address] Care Team Providers Care Vocational Coordinator Name Role Phone Jessy Randall Primary Care Provider [phone] Reason for Visit * Reason Onset Date Comments Nurse Triage 02/21/2025 Encounter Details Date Type Department Care Team ([facility] st Contact Info) Description 02/21/2025 Telephone [facility] MEDICINE 230 [place] [address] Jessy Randall ANP 230 [place] [address] Nurse Triage Social History Tobacco Use Types [...] 02/21/2025 9:47 AM EDT 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 Pt is at work at time of [...] Office Visit [facility] MEDICINE 230 [place] [address] Zach Lewis MD 230 [place], [place] [phone] documented as of this encounter Visit Diagnoses Not on filedocumented in this encounter Additional Health Concerns Assessment Noted Time PHQ-9 Depression Total Score: 11 025 2:04 PM EST documented as of this encounter Care Teams Vocational Coordinator Relationship Specialty Start Date End Date Jessy Randall ANP 230 [place], [place] [phone] PCP - General Family Medicine 07/21/21 documented as of this encounter
--- OUTSIDE RECORDS SUMMARY | 2025-08-06 11:02 | XMS_ITS | Encounter Summary ---
Author Organization [employer] Address [address] [facility] 7t [place] [address] Care Team Providers Care Rn Night Name Role Phone Jessy Randall Primary Care Provider [phone] Reason for Visit * Reason Comments Med Refill Encounter Details Date Type Department Care Team ([facility] Contact Info) Description 11/19/[address] [facility] MEDICINE [address] [place] [address] Jessy Randall ANP 230 [place] [address] Anxiety disorder, unspecified Social History Tobacco Use [...] Upcoming Encounters Date Type Department Care Team ([facility] Contact Info) Description 09/21/2025 10:15 AM EDT Office Visit [facility] MEDICINE [address] [place] [address] Zach Lewis MD 230 [place] [address] documented as of this encounter Visit Diagnoses Diagnosis Anxiety disorder, unspecified documented in this encounter Care Teams Rn Night Relationship Specialty Start Date End Date Jessy Randall ANP 230 [place] [address] PCP - General Family Medicine 07/21/21 documented as of this encounter
--- OUTSIDE RECORDS SUMMARY | 2025-08-06 11:02 | XMS_ITS | Encounter Summary ---
Author Organization [employer] Address [address] [facility] [address] 7t [place] [address] Care Team Providers Care Operators Teacher Name Role Phone Jessy Randall Primary Care Provider [phone] Reason for Visit * Reason Comments Med Refill Encounter Details Date Type Department Care Team ([facility] st Contact Info) Description 09/08/2023 Refill [facility] & PEDS [address] [place], [place] [phone] Jessy Randall ANP 230 [place] [address] Pain Social History Tobacco Use Types Packs/Day [...] 09/21/2025 10:15 AM EDT Office Visit [facility] MEDICINE [address] [place] [address] Zach Lewis MD [address] [place] [address] documented as of this encounter Visit Diagnoses Diagnosis Pain Generalized pain documented in this encounter Care Teams Operators Teacher Relationship Specialty Start Date End Date Jessy Randall ANP [address] [place] [address] PCP - General Family Medicine 07/21/21 documented as of this encounter
--- OUTSIDE RECORDS SUMMARY | 2025-08-06 11:02 | XMS_ITS | Encounter Summary ---
Author Organization [employer] Address 75 [facility] 7t [place] [address] Care Team Providers Care Dobby Loom Fixer Name Role Phone Jessy Randall Primary Care Provider [phone] Reason for Visit * Reason Onset Date Comments Nurse Triage 04/25/2025 Encounter Details Date Type Department Care Team ([facility] st Contact Info) Description 04/25/2025 Telephone [facility] MEDICINE 230 [place] [address] Jessy Randall ANP [address] [place] [address] Nurse Triage Social History Tobacco Use Types [...] connect with this number. Mary [place] [id number] was able to contact Pt. Pt reports several symptoms. Mainly urinary symptom of foamy urine and dry mouth/lips with a metal taste in the mouth. Pt has not started any new medications recently. Pt was seen for similar concerns 02/23/25. Pt reports drinking adequate liquids and denies vomiting, nausea, diarrhea or fever. Pt is advised to come to [facility] to be seen by provider at Pt convenience. Hours given, open today till 8pm and 830am-400pm , . Pt agrees with disposition and reports will come to [facility] in the morning due to work hours. [...] caller accepted this outcome. Contact pt at [phone] (telugu) documented in this encounter Plan of Treatment Upcoming Encounters Date Type Department Care Team (Late st Contact Info) Description 09/21/2025 10:15 AM EDT Office Visit [facility] MED[facility] 230 [place] [address] Zach Lewis MD [address] [place] [address] documented as of this encounter Visit Diagnoses Not on filedocumented in this encounter Additional Health Concerns Assessment Noted Time PHQ-9 Depression Total Score: 11 025 2:04 PM EST documented as of this encounter Care Teams Dobby Loom Fixer Relationship Specialty Start Date End Date Jessy Randall ANP [address] [place] [address] PCP - General Family Medicine 07/21/21 documented as of this encounter
--- OUTSIDE RECORDS SUMMARY | 2025-08-06 11:02 | XMS_ITS | Encounter Summary ---
Author Organization [employer] Address [address] [facility] 7t [place] [address] Care Team Providers Care Car Park Attendant Name Role Phone Jessy Randall Primary Care Provider [phone] Reason for Visit * Reason Onset Date Comments Medication Question 04/11/2025 Encounter Details Date Type Department Care Team ([facility] st Contact Info) Description 04/11/2025 Telephone [facility] MEDICINE [address] [place] [address] Jessy Randall ANP 230 [place] [address] Medication Question Social History Tobacco Use Types [...] 04/11/2025 3:22 PM EDT TC placed to [facility] in to inquire about the schedule for Elie Jovel and if the pt would beable to transfer her care over to him. The pt reported that former psychiatrist Alysia Gould at [facility] in [place] has retired. RN tried to call [facility] to confirm this information but was on hold for some time. [facility] states that she will call that office to inquire as there is a process to changing providers. This message will routed to [facility] in * Telephone Encounter - Citlali Cordoba - 04/11/2025 1:09 PM EDT Tc from pt requesting a call back. Pt stated she was following up with psychiatrist but current oneretired. Pt stated she was advised to request a new referral to a different psychiatrist and pcp toprescribe medication until pt establishes care. Contact pt at [phone] (kinyarwanda) documented in this encounter Plan of Treatment Upcoming Encounters Date Type Department Care Team (Late st Contact Info) Description 09/21/2025 10:15 AM EDT Office Visit [facility] MEDICINE [address] [place] [address] Zach Lewis MD 230 [place] [address] documented as of this encounter Visit Diagnoses Not on filedocumented in this encounter Additional Health Concerns Assessment Noted Time PHQ-9 Depression Total Score: 11 025 2:04 PM EST documented as of this encounter Care Teams Car Park Attendant Relationship Specialty Start Date End Date Jessy Randall ANP [address] [place], [place] [phone] PCP - General Family Medicine 07/21/21 documented as of this encounter
--- OUTSIDE RECORDS SUMMARY | 2025-08-06 11:02 | XMS_ITS | Encounter Summary ---
Author Organization [employer] Address [address] [address] 7t [place] [address] Care Team Providers Care Ux Design Manager Name Role Phone Jessy Randall Primary Care Provider [phone] Reason for Visit * Reason Comments Med Refill Encounter Details Date Type Department Care Team ([facility] st Contact Info) Description 04/18/2024 Refill [facility] MED & PEDS [address] [place], [place] [phone] Jessy Randall ANP 230 [facility] [place] [address] Pain Social History Tobacco Use Types Packs/Day [...] Office Visit [facility] MEDICINE [address] [place] [address] Zach Lewis MD 230 [place] [address] documented as of this encounter Visit Diagnoses Diagnosis Pain Generalized pain documented in this encounter Care Teams Ux Design Manager Relationship Specialty Start Date End Date Jessy Randall ANP [address] [place] [address] PCP - General Family Medicine 07/21/21 documented as of this encounter
--- OUTSIDE RECORDS SUMMARY | 2025-08-06 11:02 | XMS_ITS | Encounter Summary ---
Author Organization [employer] Address [address] [facility] 7t [place] [address] Care Team Providers Care Sales Enablement Analyst Name Role Phone Jessy Randall KAVITA Primary Care Provider [phone] Encounter Details Date Type Department Care Team (Late Contact Info) Description 11/25/2022 Orders Only [facility] [address] [place] [address] Alisa Dolan, HUNTER [address] [place], [place] [phone] Social History Tobacco Use Types Packs/Day Years [...] Description 09/21/2025 10:15 AM EDT Office Visit [facility] MEDICINE 230 [place] [address] Zach Lewis MD [address] [place] [address] documented as of this encounter Visit Diagnoses Not on filedocumented in this encounter Care Teams Sales Enablement Analyst Relationship Specialty Start Date End Date Jessy Randall ANP [address] [place] [address] PCP - General Family Medicine 07/21/21 documented as of this encounter
--- OUTSIDE RECORDS SUMMARY | 2025-08-06 11:02 | XMS_ITS | Encounter Summary ---
Author Organization [employer] Address [address] [facility] 7t [place] [address] Care Team Providers Care Direct Chill Casting Operator Name Role Phone Jessy Randall Primary Care Provider [phone] Reason for Visit * Reason Comments Med Refill Encounter Details Date Type Department Care Team (Late Contact Info) Description 05/05/2023 Refill [facility] MEDICINE [address] [place] [address] Jessy Randall ANP [address] [place] [address] Chronic migraine without aura without status migrainosus, [...] 09/21/2025 10:15 AM EDT Office Visit [facility] MEDICINE [address] [place] [address] Zach Lewis MD [address] [place] [address] documented as of this encounter Visit Diagnoses Diagnosis Chronic migraine without aura without status migrainosus, not intractable documented in this encounter Care Teams Direct Chill Casting Operator Relationship Specialty Start Date End Date Jessy Randall ANP 230 [facility] [place] [address] PCP - General Family Medicine 07/21/21 documented as of this encounter
--- OUTSIDE RECORDS SUMMARY | 2025-08-06 11:02 | XMS_ITS | Encounter Summary ---
Author Organization [employer] Address [address] [facility] [address] 7t [place] [address] Care Team Providers Care Dry Room Attendant Name Role Phone Jessy Randall Primary Care Provider [phone] Reason for Visit * Reason Onset Date Comments error 11/18/2023 Encounter Details Date Type Department Care Team ([facility] st Contact Info) Description 11/18/2023 Telephone [facility] MEDICINE 230 [place], [place] [phone] Jessy Randall ANP 230 [place] [address] error Social History Tobacco Use Types Packs/Day [...] Description 09/21/2025 10:15 AM EDT Office Visit [facility] MEDICINE 230 [place], [place] [phone] Zach Lewis MD 230 [place] [address] documented as of this encounter Visit Diagnoses Not on filedocumented in this encounter Care Teams Dry Room Attendant Relationship Specialty Start Date End Date Jessy Randall ANP 230 [place], [place] [phone] PCP - General Family Medicine 07/21/21 documented as of this encounter
--- OUTSIDE RECORDS SUMMARY | 2025-08-06 11:02 | XMS_ITS | Encounter Summary ---
Author Organization [employer] Address [address] [facility] [address] 7t [place] [address] Care Team Providers Care Electronic Data Interchange Specialist Name Role Phone Jessy Randall Primary Care Provider [phone] Reason for Visit * Reason Onset Date Comments Referral 11/25/2023 Encounter Details Date Type Department Care Team ([facility] st Contact Info) Description 11/25/2023 Telephone [facility] MEDICINE 230 [place], [place] [phone] Jessy Randall ANP [address] [place] [address] Referral Social History Tobacco Use Types Packs/Day [...] 09/21/2025 10:15 AM EDT Office Visit [facility] MEDICINE [address] [place] [address] Zach Lewis MD [address] [place] [address] documented as of this encounter Visit Diagnoses Not on filedocumented in this encounter Care Teams Electronic Data Interchange Specialist Relationship Specialty Start Date End Date Jessy Randall ANP [address] [place] [address] PCP - General Family Medicine 07/21/21 documented as of this encounter
== END 2025-07-03 00:01 | disposition home or self-care (01) ==
LOC: CF
PROVIDERS: Visit Provider Nurse Practitioner Family
DX: Z12.11 Encounter for screening for malignant neoplasm of colon (principal); R19.5 Other fecal abnormalities; E11.9 Type 2 diabetes mellitus without complications
CPT/HCPCS: 99212

== ENCOUNTER 2025-07-09 13:25 | Outpatient (REF) | payer OTHER, SELFPAY ==
--- OUTSIDE RECORDS SUMMARY | 2025-07-09 13:36 | XMS_ITS | Encounter Summary ---
Author Organization [employer] Address [address] [place] [address] Care Team Providers Care Airline Reservation Agent Name Role Phone Jessy Randall Primary Care Provider [phone] Reason for Visit * Reason Comments Med Refill Encounter Details Date Type Department Care Team ([facility] Contact Info) Description 11/19/2022 Refill [facility] [address] [place] [phone] Jessy Randall ANP [address] [place] [address] Anxiety disorder, unspecified Social History Tobacco Use [...] Upcoming Encounters Date Type Department Care Team ([facility] Contact Info) Description 07/09/2025 2:00 PM EDT Office Visit [facility] [address] [place] [address] Jessy Ranadll ANP [address] [place] [address] 09/21/2025 10:15 AM EDT Office Visit [facility] [address] [place] [phone] Zach Lewis MD [address] [place] [address] documented as of this encounter Visit Diagnoses Diagnosis Anxiety disorder, unspecified documented in this encounter Care Teams Airline Reservation Agent Relationship Specialty Start Date End Date Jessy Randall ANP [address] [place] [address] PCP - General Family Medicine 07/21/21 documented as of this encounter
[2025-07-09 16:39] LABS: Anion Gap 13 (12-20); Blood Urea Nitrogen 20 mg/dL (9-16); Calcium 9.3 mg/dL (8.4-10.2); Carbon Dioxide 26 mmol/L (22-29); Chloride 104 mmol/L (96-108); Estimated Glomerular Filt Rate > 60; Potassium 4.7 mmol/L (3.3-5.1); Sodium 138 mmol/L (135-145)
[2025-07-09 16:41] LABS: Hemoglobin A1C 119.0320 umol/L; Total Hemoglobin (HGBA1C) 3376.5337 umol/L
[2025-07-10 10:05] LABS: CT PCR NOT DETECTED (Not Detect.); NG PCR NOT DETECTED (Not Detect.)
[2025-07-12 10:19] LABS: TS Negative Control Passed; TS Panel A 6; TS Panel B 11; TS Positive Control Passed; TSpotTB Positive (Negative)
== END 2025-07-09 13:26 | disposition home or self-care (01) ==
LOC: HO.HHCL 13:25
PROVIDERS: PCP Nurse Practitioner Primary Care; Visit Provider Nurse Practitioner Primary Care
DX: Z11.1 Encounter for screening for respiratory tuberculosis (principal); Z11.3 Encounter for screening for infections with a predominantly sexual mode of transmission; Z11.8 Encounter for screening for other infectious and parasitic diseases; E03.9 Hypothyroidism, unspecified; E11.69 Type 2 diabetes mellitus with other specified complication; E78.5 Hyperlipidemia, unspecified; N30.01 Acute cystitis with hematuria
CPT/HCPCS: 36415; 80048; 83036; 84443; 86481; 87086; 87088; 87147; 87186; 87491; 87591

== ENCOUNTER 2025-07-13 13:13 | Outpatient (REF) | payer OTHER, SELFPAY ==
--- NOTE | ~2025-07-13 | XR_ITS ---
EXAMINATION: XR CHEST 2 VIEWS HISTORY: positive t-spot COMPARISON: Comparison is made with the prior examination dated 04/26/2022. FINDINGS: PA and lateral views of the chest are submitted. The lungs are expanded and clear. There is no pleural effusion, pneumothorax, or pulmonary vascular congestion. The heart is normal in size. The bones are intact. XR/XR chest 2V IMPRESSION: No acute cardiopulmonary abnormality. Electronically signed by: Jim Riggs MD 07/13/2025 02:04 PM EDT
--- OUTSIDE RECORDS SUMMARY | 2025-07-13 13:16 | XMS_ITS | Encounter Summary ---
Author Organization [employer] Address [address] [facility] 7t [place] [address] Care Team Providers Care Reel Blade Bender Furnace Tender Name Role Phone Jessy Randall Primary Care Provider [phone] Reason for Visit * Reason Comments Med Refill Encounter Details Date Type Department Care Team ([facility] Contact Info) Description 11/19/2022 Refill [facility] [address] [place] [phone] Jessy Randall ANP [address] [place] [address] Anxiety disorder, unspecified Social History Tobacco Use [...] Upcoming Encounters Date Type Department Care Team ([facility] Contact Info) Description 09/21/2025 10:15 AM EDT Office Visit [facility] [address] [place] [phone] Zach Lewis MD [address] [place] [address] documented as of this encounter Visit Diagnoses Diagnosis Anxiety disorder, unspecified documented in this encounter Care Teams Reel Blade Bender Furnace Tender Relationship Specialty Start Date End Date Jessy Randall ANP [address] [place] [address] PCP - General Family Medicine 07/21/21 documented as of this encounter
== END 2025-07-13 13:14 | disposition home or self-care (01) ==
LOC: HO.HHCX 13:13
PROVIDERS: PCP Nurse Practitioner Primary Care; Visit Provider Nurse Practitioner Primary Care
DX: R76.11 Nonspecific reaction to tuberculin skin test without active tuberculosis (principal)
CPT/HCPCS: 71046

== ENCOUNTER → 2025-07-13 13:25 | Outpatient (BNV) | payer OTHER, SELFPAY | PROVIDERS: PCP Nurse Practitioner Primary Care; Visit Provider Radiology Diagnostic Radiology | DX: R76.11 Nonspecific reaction to tuberculin skin test without active tuberculosis (principal) | CPT/HCPCS: 71046 ==

== ENCOUNTER 2025-08-03 10:01 | Outpatient (REF) | payer OTHER, SELFPAY ==
--- OUTSIDE RECORDS SUMMARY | 2025-08-03 10:56 | XMS_ITS | Encounter Summary ---
Author Organization [employer] Address [address] [facility] 7t [place] [address] Care Team Providers Care Radiation Physicist Name Role Phone Jessy Randall Primary Care Provider [phone] Reason for Visit * Reason Comments Med Refill Encounter Details Date Type Department Care Team ([facility] Contact Info) Description 11/25/2022 Refill [facility] MED[facility]INE [address] [place] [address] Jessy Randall ANP [address] [place] [address] Anxiety disorder, unspecified Social History Tobacco Use [...] Upcoming Encounters Date Type Department Care Team ([facility] Contact Info) Description 09/21/2025 10:15 AM EDT Office Visit [facility] [address] [place] [phone] Zach Lewis MD [address] [place] [address] documented as of this encounter Visit Diagnoses Diagnosis Anxiety disorder, unspecified documented in this encounter Care Teams Radiation Physicist Relationship Specialty Start Date End Date Jessy Randall ANP [address] [place] [address] PCP - General Family Medicine 07/21/21 documented as of this encounter
--- OUTSIDE RECORDS SUMMARY | 2025-08-03 10:56 | XMS_ITS | Encounter Summary ---
Author Organization [employer] Address [address] [facility] 7t [place] [address] Care Team Providers Care Cop Winder Name Role Phone Jessy Randall Primary Care Provider [phone] Reason for Visit * Reason Comments Med Refill Encounter Details Date Type Department Care Team ([facility] st Contact Info) Description 10/15/2023 Refill [facility] [address] [place] [address] Name, MD Osvaldo [address] [place] [address] Social History Tobacco Use Types Packs/Day Years Used Date Smoking Tobacco: Former Cigarettes Passive Smoke Exposure: Current Smokeless Tobacco: Never Alcohol Use Standard Drinks/Week Comments Not Currently 0 (1 standard drink = 0.6 oz pur e alcohol) Housing Stability Answer Date Recorded What is your housing situation today? I have les whitley 09/13/[address] you li ve. Do you have problems with any of the following? None of the above 09/13/2023 Food Insecurity Answer Date Recorded Within the past 12 months, y ou worried that your food would run out before you got money to buy more: Never True 09/13/2023 Within the past 12 months,th e food you bought just didn't last and you didn't have enough money to get more: Never True Transportation Answer Date Recorded In the past 12 months, has l ack of transportation kept you from medical appts, meetings, work or from getting things needed for daily living? No 09/13/2023 Utilities Answer Date Recorded In the past 12 months, has t he electric, gas, oil or water company threatened to shut off services in your home? No 09/13/2023 Depression Answer Date Recorded Patient Health Questionnaire-2 Score 0 04/20/2023 Comments Unknown Sex and Gender Information Value Date Recorded Sex Assigned at Female 09/28/2022 10:37 AM EDT Legal Sex Female 10:37 AM EDT Gender Identity Female 09/28/2022 10:37 AM EDT Sexual Orientation Straight 09/28/2022 10 :37 AM EDT documented as of this encounter Plan of Treatment Upcoming Encounters Date Type Department Care Team (Late st Contact Info) Description 09/21/2025 10:15 AM EDT Office Visit [facility] [address] [place], [place] [phone] Zach Lewis MD [address] [place] [address] documented as of this encounter Visit Diagnoses Not on filedocumented in this encounter Care Teams Cop Winder Relationship Specialty Start Date End Date Jessy Randall ANP [address] [place] [address] PCP - General Family Medicine 07/21/21 documented as of this encounter
--- OUTSIDE RECORDS SUMMARY | 2025-08-03 10:56 | XMS_ITS | Encounter Summary ---
Author Organization [employer] Address [address] [facility] 7t [place] [address] Care Team Providers Care Water Jet Operator Name Role Phone Jessy Randall Primary Care Provider [phone] Reason for Visit * Reason Onset Date Comments Nurse Triage 04/25/2025 Encounter Details Date Type Department Care Team ([facility] st Contact Info) Description 04/25/2025 Telephone [facility] MED[facility]INE [address] [place] [address] Jessy Randall ANP [address] [place] [address] Nurse Triage Social History Tobacco Use Types Packs/Day Years Used Date Smoking Tobacco: Former Cigarettes Q uit: 10/2023 Passive Smoke Exposure: Past Smokeless Tobacco: Never Alcohol Use Standard Drinks/Week Comments Not Currently 0 (1 standard drink = 0.6 oz pur e alcohol) Depression Answer Date Recorded Patient Health Questionnaire-9 Score 0 07/09/2025 Patient Health Questionnaire-9 Score 0 07/09/2025 Last PHQ-9: Questionnaire Data Not on file 0 07/09/2025 Housing Stability Answer Date Recorded What is your housing situation today? I have les whitley 01/08/[address] you li ve. Do you have problems with any of the following? None of the above 01/08/2025 Food Insecurity Answer Date Recorded Within the past 12 months, y ou worried that your food would run out before you got money to buy more: Never True 07/09/2025 Within the past 12 months,th e food you bought just didn't last and you didn't have enough money to get more: Never True 09/2025 Transportation Answer Date Recorded In the past 12 months, has l ack of transportation kept you from medical appts, meetings, work or from getting things needed for daily living? No 01/08/2025 Utilities Answer Date Recorded In the past 12 months, has t he electric, gas, oil or water company threatened to shut off services in your home? No 07/09/2025 Depression Answer Date Recorded Patient Health Questionnaire-2 Score 0 07/09/2025 Internet Access Answer Date Recorded Internet Access Q1 Yes 01/08/2025 Internet Access Q2 Not on file 01/08/2025 Comments Unknown Sex and Gender Information Value Date Recorded Sex Assigned at Female 09/28/2022 10:37 AM EDT Legal Sex Female 10:37 AM EDT Gender Identity Female 09/28/2022 10:37 AM EDT Sexual Orientation Straight 09/28/2022 10 :37 AM EDT documented as of this encounter Functional Status * Over the past 2 weeks, how often have you been bothered by any of the following problems? Question Answer Date of Assessment Author Patient Health Questionnaire -2 Score 0 07/09/2025 2:17 PM EDT Matt Cardenas MA * Little interest or pleasure in doing things Answer Date of Assessment Author Not at all 07/09/2025 2:17 PM EDT Matt Cardenas MA * Feeling down, depressed, or hopeless Answer Date of Assessment Author Not at all 07/09/2025 2:17 PM EDT Matt Cardenas MA * Trouble falling or staying asleep, or sleeping too much Answer Date of Assessment Author Not at all 07/09/2025 2:17 PM EDT Matt Cardenas MA * Feeling tired or having little energy Answer Date of Assessment Author Not at all 07/09/2025 2:17 PM EDT Matt Cardenas MA * Poor appetite or overeating Answer Date of Assessment Author Not at all 07/09/2025 2:17 PM EDT Matt Cardenas MA * Feeling bad about yourself - or that you are a failure or have let yourself or your family down Answer Date of Assessment Author Not at all 07/09/2025 2:17 PM EDT Matt Cardenas MA * Trouble concentrating on things, such as reading the newspaper or watching television Answer Date of Assessment Author Not at all 07/09/2025 2:17 PM EDT Matt Cardenas MA * Moving or speaking so slowly that other people could have noticed? Or the opposite - being so fidgety or restless that you have been moving around a lot more than usual. Answer Date of Assessment Author Not at all 07/09/2025 2:17 PM EDT Matt Cardenas MA * Thoughts that you would be better off or hurting yourself in some way Answer Date of Assessment Author Not at all 07/09/2025 2:17 PM EDT Matt Cardenas MA * Patient Health Questionnaire-9 Score Answer Date of Assessment Author 0 07/09/2025 2:17 PM EDT Matt Cardenas MA documented as of this encounter Miscellaneous Notes * Telephone Encounter - Floresita Portillo RN - 04/25/2025 2:49 PM EDT Triage call with [facility] which was unable to connect with this number. Mary contacted [place] [id number] was able to contact Pt. Pt reports several symptoms. Mainly urinary symptom of foamy urine and dry mouth/lips with a metal taste in the mouth. Pt has not started any new medications recently. Pt was seen for similar concerns 02/23/25. Pt reports drinking adequate liquids and denies vomiting, nausea, diarrhea or fever. Pt is advised to come to [facility] to be seen by provider at Pt convenience. Hours given, open today till 8pm and 830am-400pm , . Pt agrees with disposition and reports will come to [facility] in the morning due to work hours. Insurance is verified as active. Protocol Used: No Protocol Available (Adult) Protocol-Based Disposition: See in Office or Video Visit Today or Tomorrow Video visit not offered Positive Triage Question: * Nursing judgment * All higher-acuity triage questions were negative Care Advice Discussed: * Reasons To Call Back - New symptoms develop - You become worse * Telephone Encounter - Yoko Crystal - 04/25/2025 1:36 PM EDT Symptoms: Urine Symptoms, Dry Mouth Outcome: Schedule a same-day appointment or talk to a nurse or provider today Reason: Caller denied all higher acuity questions Tc from pt stating there is foam in her urine and is experiencing dry mouth and lips. The caller accepted this outcome. Contact pt at [phone] (chinese) documented in this encounter Plan of Treatment Upcoming Encounters Date Type Department Care Team (Late st Contact Info) Description 09/21/2025 10:15 AM EDT Office Visit [facility] MED[facility] [address] [place] [address] Zach Lewis MD [address] [place] [address] documented as of this encounter Visit Diagnoses Not on filedocumented in this encounter Additional Health Concerns Assessment Noted Time PHQ-9 Depression Total Score: 11 025 2:04 PM EST documented as of this encounter Care Teams Water Jet Operator Relationship Specialty Start Date End Date Jessy Randall ANP [address] [place] [address] PCP - General Family Medicine 07/21/21 documented as of this encounter
--- OUTSIDE RECORDS SUMMARY | 2025-08-03 10:56 | XMS_ITS | Encounter Summary ---
Author Organization [employer] Address [address] [facility] [address] [place] [address] Care Team Providers Care Direct Support Professional Home Health Name Role Phone Jessy Randall KAVITA Primary Care Provider [phone] Encounter Details Date Type Department Care Team (Late st Contact Info) Description 11/25/2022 Orders Only [facility] [address] [place] [address] Alisa Dolan, HUNTER [address] [place], [place] [phone] Social History Tobacco Use Types Packs/Day Years [...] Description 09/21/2025 10:15 AM EDT Office Visit [facility]INE [address] [place] [address] Zach Lewis MD [address] [place] [address] documented as of this encounter Visit Diagnoses Not on filedocumented in this encounter Care Teams Direct Support Professional Home Health Relationship Specialty Start Date End Date Jessy Randall ANP [address] [place] [address] PCP - General Family Medicine 07/21/21 documented as of this encounter
--- OUTSIDE RECORDS SUMMARY | 2025-08-03 10:56 | XMS_ITS | Encounter Summary ---
Author Organization [employer] Address [address] [facility] [address]t [place] [address] Care Team Providers Care Passenger Tire Inspector Name Role Phone Jessy Randall Primary Care Provider Encounter Details Date Type Department Care Team (Late Contact Info) Description 01/04/2023 Telephone [facility] [address] [place] [address] Marlene Holley LPN Social History Tobacco Use Types Packs/Day Years [...] Description 09/21/2025 10:15 AM EDT Office Visit [facility] MEDICINE [address] [place] [phone] Zach Lewis MD [address] [place] [address] documented as of this encounter Visit Diagnoses Not on filedocumented in this encounter Care Teams Passenger Tire Inspector Relationship Specialty Start Date End Date Jessy Randall ANP [address] [place] [address] PCP - General Family Medicine 07/21/21 documented as of this encounter
--- OUTSIDE RECORDS SUMMARY | 2025-08-03 10:56 | XMS_ITS | Clinical Summary ---
Author Organization [employer] Address [address] [facility] [address] [address] [place] [address] Care Team Providers Care Dental Hygiene Administrative Assistant Name Role Phone Tawana Castle KAVITA Primary Care Provider [phone] Allergies Active Allergy Reactions Criticality Noted Date Comments Sulfa Antibiotics Hives Low 01/14/2021 Medications * This document contains information received from the source organization and may not represent a complete record from that organization. clonazePAM (KlonoPIN) 1 MG tablet Take 1 tablet by mouth every 8 (eight) hours. Active triamcinolone (Kenalog) 0.1 % ointment Apply topically every 12 (twelve) hours. 022 Active zoster vaccine-recombina nt adjuvanted (Shingrix) 50 MCG/0.5ML vaccine inject 0.5 milliliter by intramuscular route once, repeat in 2-6months 022 Active Alcohol Swabs (Alcohol Prep) 70 % pads Apply 1 Swab topically 1 (one) time each day. 022 Active buPROPion XL (Wellbutrin XL) 150 MG 24 hr tablet TAKE 1 TABLET BY MOUTH EVERY MORNING 023 Active DULoxetine (Cymbalta) [address] capsule 60 mg. 023 Active Blood Pressure kitIndications:El evated blood pressure reading without diagnosis of hypertension 1 kit in the morning. 1 kit 023 Active lidocaine (Lidoderm) 5 % patch Apply 1 patch topically in the morning. Remove & discard patch within 12 hours or as directed by . 30 patch 2 023 Active TRUEplus Lancets 33G misc TEST BLOOD SUGAR TWICE DAILY 100 each 11 023 Active ceramides (CeraVe) moisturizing cream Apply 1 application topically if needed for dry skin. 453 g 023 Active Blood Glucose Monitoring Suppl (OneTouch Verio) w/Device kit TEST BLOOD SUGAR TWICE DAILY 1 kit 023 Active OneTouch Delica Lancets 33G misc TEST BLOOD SUGAR TWICE DAILY 100 each 11 023 Active ciclopirox (Ciclodan) 8 % solutionIndicatio ns:Toenail fungus Apply topically at bedtime. To affected nails 6 mL 3 024 Active glucose blood (OneTouch Verio) test strip TEST BLOOD SUGAR TWICE DAILY 100 each 11 024 Active atorvastatin (Lipitor) 40 MG tabletIndications :Type 2 diabetes mellitus with hyperlipidemia (CMS/HCC) (CMS/HCC) TAKE 1 TABLET BY MOUTH ONCE DAILY IN THE MORNING 90 tablet 3 024 Active Hydrocortisone Butyrate 0.1 % solutionIndicatio ns:Dermatitis APPLY A THIN LAYER TO AFFECTED AREA(S) TWICE DAILY DIRECTED 60 mL 2 025 Active cetirizine (ZyrTEC) 10 MG tabletIndications :Localized pruritus Take 1 tablet (10 mg) by mouth Once daily as needed for allergies. 90 tablet 1 025 Active gabapentin (Neurontin) 800 MG tabletIndications :Right leg pain Take 1 tablet (800 mg) by mouth Once per day. 90 tablet 1 025 Active lisinopril 2.5 MG tabletIndications :Essential hypertension Take 1 tablet (2.5 mg) by mouth in the morning. 90 tablet 3 025 Active pantoprazole (Protonix) 40 MG EC tabletIndications :Gastroesophageal reflux disease, unspecified whether esophagitis present Take 1 tab 30 min before meal, twice daily, Do not crush, chew, or split. 60 tablet 11 025 Active topiramate 50 MG tabletIndications :Chronic migraine without aura without status migrainosus, not intractable Take 1 tablet (50 mg) by mouth Once daily. 90 tablet 1 025 Active busPIRone (Buspar) 15 MG tabletIndications :Anxiety TAKE 1 TABLET BY MOUTH THREE TIMES DAILY 90 tablet 5 025 Active ondansetron (Zofran) 4 MG tabletIndications :Urinary tract infection without hematuria, site unspecified TAKE 1 TABLET BY MOUTH EVERY 8 HOURS NEEDED FOR NAUSEA AND VOMITING FOR UP TO 7 DAYS 20 tablet 025 Active Dulaglutide 3 MG/0.5ML solution auto-injectorIndi cations:Type 2 diabetes mellitus with hyperlipidemia (CMS/HCC) (CMS/HCC) Inject 3 mg under the skin 1 (one) time per week. 2 mL 2 025 Active metoclopramide (Reglan) 5 MG tabletIndications :Nausea Take 1 tablet (5 mg) by mouth every 8 (eight) hours if needed (nausea) for up to 7 days. 21 tablet 025 Active nabumetone (Relafen) 500 MG tabletIndications :Acute midline low back pain without sciatica Take 1 tab as needed for back pain up to twice daily 60 tablet 025 Active ibuprofen 600 MG tabletIndications :Pain TAKE 1 TABLET BY MOUTH UP TO TWICE DAILY WITH FOOD NEEDED (for pain) 40 tablet 025 Active levothyroxine (Synthroid, Levoxyl) 175 MCG tabletIndications :Hypothyroidism, unspecified type TAKE 1 TABLET BY MOUTH ONCE DAILY 6 DAYS PER WEEK. DO NOT TAKE ON WEDNESDAY. TAKE ON AN EMPTY STOMACH 30 TO 60 MINUTES BEFORE BREAKFAST. 96 tablet 1 025 Active nicotine polacrilex (Commit) 2 MG lozenge DISSOLVE 1 LOZENGE IN MOUTH EVERY 2 HOURS NEEDED (para reemplazar un cigarrillo) 72 lozenge 1 025 Active nicotine (Nicoderm, Step 2) 14 MG/24HR patch APPLY 1 PATCH TOPICALLY TO THE SKIN IN THE MORNING *DO NOT SMOKE WHILE USING PATCH* 28 patch 1 025 Active nicotine polacrilex (Commit) 2 MG lozengeIndication s:Smoking DISSOLVE 1 LOZENGE IN MOUTH EVERY 2 HOURS NEEDED (para reemplazar un cigarrillo) 72 lozenge 1 02/10/ 023 2024 Discontinued nicotine (Nicoderm, Step 2) 14 MG/24HR patchIndications: Smoking APPLY 1 PATCH BY TRANSDERMAL ROUTE EVERY DAY 28 patch 023 2024 Discontinued levothyroxine (Synthroid, Levoxyl) 175 MCG tabletIndications :Hypothyroidism, unspecified type TAKE 1 TABLET BY MOUTH ONCE DAILY 6 DAYS PER WEEK. DO NOT TAKE ON WEDNESDAY. TAKE ON AN EMPTY STOMACH 30-60 MINUTES BEFORE BREAKFAST 96 tablet 1 025 2024 Discontinued Dulaglutide 4.5 MG/0.5ML solution auto-injectorIndi cations:Type 2 diabetes mellitus with hyperlipidemia (CMS/HCC) (CMS/HCC) Inject 4.5 mg under the skin 1 (one) time per week. 2 mL 5 025 2024 Discontinued(D ose adjustment) metoclopramide (Reglan) 5 MG tabletIndications :Nausea Take 1 tablet (5 mg) by mouth every 8 (eight) hours if needed (nausea) for up to 7 days. 21 tablet 025 2024 Discontinued(R eorder (will not trigger notification to Pharmacy)) ondansetron (Zofran) 4 MG tabletIndications :Urinary tract infection without hematuria, site unspecified Take 1 tablet (4 mg) by mouth every 8 (eight) hours if needed for nausea or vomiting for up to 7 days. 20 tablet 025 2024 Discontinued ibuprofen 600 MG tabletIndications :Pain TAKE 1 TABLET BY MOUTH UP TO TWICE DAILY WITH FOOD NEEDED (for pain) 40 tablet 025 2024 Discontinued(R eorder (will not trigger notification to Pharmacy)) cephalexin (Keflex) 500 MG capsuleIndication s:Acute cystitis with hematuria 1 tab BID for 7d 14 capsule 025 2024 Active Problems Problem Noted Date Diagnosed Date Positive colorectal cancer screening using Colog uard test 02/19/2025 Former smoker 01/08/2025 Overview (01/08/2025): Former smoker: quit 2023, started at 15yo, smoked 3-4 cigs/d PYH 10.75, below threshold for LDCT Severe anxiety 05/16/2024 Alcohol use 05/16/2024 Cocaine use 05/16/2024 Assessment & Plan (05/18/2024 9:45 AM EDT): PROGRESS NOTE: ID: Rachel is a 58 y.o. White straight-identified cis-female with previous documented hx of Bipolar Disorder services including OP Psychotherapy psychopharmacology who presents for Substance Use Disorder During IBH Consult Rachel presenting with excessive worry/anxiety, difficulty controlling worry, restless/keyed up/On edge, easily fatigued, difficulty concentrating/Mind going blank , muscle tension, and sleep disturbance difficulty falling asleep and difficulty staying asleep , Abnormally elevated mood, Decreased need for sleep, Flight of ideas, Excessive goal directed activity, Changes in self-image, and Other: rapid speech, racing thoughts, and unsuccessful attempt/s to cut down/stop use, cravings and urges to use, recurrent use resulting in failure to fulfill major obligations at work/home/school , continued use, even when it causes interpersonal problems, giving up/reducing important social, occupational, or recreational activities because of use, continued use even when hazardous or dangerous , continued use despite physical or psychological problem (potentially related or made worse by use) , tolerance , in regard to Alcohol and Stimulants ; for a period of 18+ mo, for all symptoms in the context of living environment heavily influence bu drugs, lack of coping mechanisms to address cravings and urges and sedentary life. PLAN: (check all that apply) Continue with current services (defined as services in the past 12 months) Behavioral Health Integration Plan Internal Follow up with [facility], Group [facility] Patient Self Plan Patient to utilize skills provided in intervention , Patient to reach out to [facility] team as needed, and Patient to follow-up with external team Screening for malignant neoplasm of colon 2023 Overview (02/09/2024): Referred to GI 02/09/24 Chronic pain of right ankle 05/13/2023 Essential hypertension 02/15/2023 Closed right ankle fracture, sequela 02/15/2023 Right leg pain 02/15/2023 Bipolar disorder 11/07/2022 Type 2 diabetes mellitus with hyperlipidemia (CM S/HCC) 11/07/2022 Hypothyroidism 11/07/2022 Insomnia disorder, with non- sleep disorder mental comorbidity 11/07/2022 Migraine 11/07/2022 Encounters * This document contains information received from the source organization and may not represent a complete record from that organization. Date Type Department Care Team Description 07/31/2025 Patient Outreach [facility] [place] [address] Daniel Trevizo Recovery Supports 07/26/2025 Refill [facility] [place] [address] Tawana Castle ANP Nicotine dependence, unspecified, uncomplicated 07/24/[address] [place] [address] Tawana Castle ANP Telephone call 07/24/2025 Patient Outreach [facility] [place] [address] Daniel Trevizo Recovery Supports 07/24/2025 Orders Only [facility] [place] [address] Tawana Castle ANP 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) 07/18/[address] [place] [address] Tawana Castle ANP Results 07/18/2025 Refill [facility] [place] [address] Tawana Castle ANP Hypothyroidism, unspecified type 07/17/2025 Patient Outreach [facility] [place] [address] Hugo Calhoun Recovery Supports 07/17/2025 Refill [facility] [address] [place] [address] Tawana Castle ANP Pain 07/13/2025 Results Follow-Up [facility] [place] [address] Tawana Castle ANP TSH W/Reflex to FT4, Hemoglobin A1c, Basic Metabolic Panel 07/12/2025 Results Follow-Up [facility] [place] [address] Tawana Castle ANP POCT Glucose, POCT HGB A1C, Culture, Urine, Routine, Additional followed-up results: 2 07/12/2025 Results Follow-Up [address] [place] [address] Tawana Castle ANP T-SPOT .TB, XR Chest 2 Views 07/09/2025 2:00 PM EDT Office Visit [facility] [address] [place] [id number] Tawana Castle ANP Type 2 diabetes mellitus with hyperlipidemia (CMS/HCC) (CMS/HCC) (Primary Dx); Acute cystitis with hematuria; Routine screening for STI (sexually transmitted infection); Nausea; Acute midline low back pain without sciatica; Onychomycosis; Leg cramping 07/09/2025 Travel 07/09/2025 Refill [facility] [address] [address] Cesia Cooley MD Urinary tract infection without hematuria, site unspecified 07/06/[address] [address] Tawana Castle ANP chart prep 06/29/2025 Patient Outreach [address] [address] Tawana Castle ANP Pre-visit Planning (Pre-visit planning - LVM ) 06/28/[address] [address] Tawana Castle ANP Med Refill 06/08/2025 Refill [facility] [address] [place] [address] Tawana Castle ANP Pain 06/06/2025 Refill [facility] [address] [place], [place] [id number] Tawana Castle ANP Anxiety 05/07/2025 2:00 PM EDT Office Visit [facility] [address] [address] Cesia Cooley MD Urinary tract infection without hematuria, site unspecified (Primary Dx); Other fatigue 05/07/2025 Travel from Last 3 Months Immunizations Immunization Administration Dates Next Due Hep B, adult 12/12/2024,02/09/2024,02/15/2023 Influenza injectable quadriv alent IIV4 with preservative 08/20/2022 Influenza injectable quadriv alent preservative free 08/31/2023,09/19/2021 Influenza, seasonal, injecta ble, preservative free 09/01/2024 Moderna Covid-19 Vaccine 12+ 05/08/2022, 11/20/2021,05/19/2021,04/23 Moderna Covid-19 Vaccine 6+ Bivalent 02/04/2023 Pfizer Covid-19 Vaccine 12+ 12/12/2024 Pneumococcal Conjugate PCV 20 02/09/2024 Pneumococcal Polysaccharide PPSV23 08/20/2022 Tdap 10/10/2021 Zoster, Recombinant 02/15/2023,03/31/2022 Social History Tobacco Use Types Packs/Day Years Used Date Smoking Tobacco: Former Cigarettes Q uit: 10/2023 Passive Smoke Exposure: Past Smokeless Tobacco: Never Tobacco Cessation:Counseling Given: Not Answered Alcohol Use Standard Drinks/Week Comments Not Currently [...] Orientation Straight 09/28/2022 10 :37 AM EDT Last Filed Vital Signs Vital Sign Reading Time Taken Comments Blood Pressure 130/80 07/09/2025 2:10 PM EDT Pulse 78 07/09/2025 2:10 PM EDT Temperature 36.7 C (98 F) 05/07/2025 1:43 PM EDT Respiratory Rate 20 07/09/2025 2:10 PM EDT Oxygen Saturation 98% 05/07/2025 1:43 PM EDT Inhaled Oxygen Concentration - - Weight 80.3 kg (177 lb) 07/09/2025 2:10 PM EDT Height 160.9 cm (5' 3.35 ) 07/09/2025 2:10 PM ED T Body Mass Index 31.01 07/09/2025 2:10 PM EDT Plan of Treatment Upcoming Encounters Date Type Department Care Team (Late st Contact Info) Description 09/21/2025 10:15 AM EDT Office Visit [facility] [address] [place] [address] Zach Lewis MD [address] [place] [address] Health Maintenance Due Date Last Done Comments CT Colonography 1965 Colonoscopy 1965 FIT 1965 Sigmoidoscopy 1965 Eye Exam 1975 Pap Smear 1986 Cervical Cancer Screening 1995 HPV/Cotest 1995 Diabetes: Foot Exam 06/23/2025 06/23/2024, 06/23/2024, 06/23/2024, Additional history exists Mammogram 06/26/2025 06/26/2024, 05/30, 04/29/2023, Additional history exists Lipid Panel 06/27/2025 06/27/2024, 08/29, 02/17/2023, Additional history exists Influenza Vaccine (#1) 2025 , 08/31/2023, 08/20/2022, Additional history exists Diabetes: Hemoglobin A1C 01/09/2026 025, 07/09/2025, 01/08/2025, Additional history exists FOBT 02/11/2026 02/11/2025 Alcohol/Substance Use Screening 02/23/2026 02/23/2025 Diabetes: Urine Protein Screening 05/28/2026 05/28/2025, 08/21/2020 Depression Screening 07/09/2026 07/09/2025, 07/09/20 25 Disability Screening 07/09/2026 07/09/2025 SDOH Screening 07/09/2026 07/09/2025 Tobacco Screening 07/24/2026 07/24/2025 Colorectal Cancer Screening 02/12/2028 FIT DNA/Cologuard 02/12/2028 02/11/2025 DTaP/Tdap/Td Vaccines (2 - Td or Tdap) 10/10/2031 10/10/2021 RSV Patients and Patients Aged 60 years or older (1 - 1-dose 75+ series) 2040 Zoster Vaccines Completed 02/15/2023, 03/31/2022 HIV Screening Completed 02/17/2023, 08/21/2020 Hepatitis C Screening Completed 02/17/2023, 020 Pneumococcal Vaccine: 50+ Years Completed 02/09/2024, 08/20/2022 COVID-19 Vaccine Completed 12/12/2024, 07/2023, 05/08/2022, Additional history exists Hepatitis B Vaccines Completed 12/12/2024, 02/09/2024, 02/15/2023 HIB Vaccines Aged Out No longer eligi ble based on patient's age to complete this topic HPV Vaccines Aged Out No longer eligi ble based on patient's age to complete this topic Hepatitis A Vaccines Aged Out No long er eligible based on patient's age to complete this topic IPV Vaccines Aged Out No longer eligi ble based on patient's age to complete this topic Meningococcal B Vaccine Aged Out No l onger eligible based on patient's age to complete this topic Meningococcal Vaccine Aged Out No michael nanda eligible based on patient's age to complete this topic RSV under 20 months Aged Out No longe r eligible based on patient's age to complete this topic Rotavirus Vaccines Aged Out No longer eligible based on patient's age to complete this topic Procedures Procedure Name Priority Date/Time Associated Diagnosis Comments XR CHEST 2 VIEWS Routine 07/13/2025 12:4 9 PM EDT Positive TB test CHLAMYDIA/N. GONORRHOEAE RNA, TMA, UROGENITAL Routine 07/09/2025 2:46 PM EDT Routine screening for STI (sexually transmitted infection) CULTURE, URINE, ROUTINE Routine 07/09/2025 2:46 PM EDT Acute cystitis with hematuria POCT URINALYSIS DIPSTICK Routine 07/09/2025 2:20 PM EDT Acute cystitis with hematuria POCT GLYCATED HEMOGLOBIN, TOTAL Routine 07/09/2025 2:18 PM EDT Type 2 diabetes mellitus with hyperlipidemia (CMS/HCC) (CMS/HCC) POCT GLUCOSE Routine 07/09/2025 2:18 PM EDT Type 2 diabetes mellitus with hyperlipidemia (CMS/HCC) (CMS/HCC) BASIC METABOLIC PANEL Routine 07/09/2025 1:34 PM EDT Type 2 diabetes mellitus with hyperlipidemia (CMS/HCC) (CMS/HCC) HEMOGLOBIN A1C Routine 07/09/2025 1:34 PM EDT Type 2 diabetes mellitus with hyperlipidemia (CMS/HCC) (CMS/HCC) TSH W/REFLEX TO FT4 Routine 07/09/2025 1 :34 PM EDT Hypothyroidism, unspecified type T-SPOT(R).TB Routine 07/09/2025 1:24 PM EDT Screening for tuberculosis POCT URINALYSIS DIPSTICK Routine 05/07/2025 2:08 PM EDT Other fatigue POCT RAPID COVID ANTIGEN Routine 05/07/2025 2:08 PM EDT Other fatigue LAB COLOGUARD COLON CANCER SCREEN Routine 02/11/2025 11:00 AM EDT Screening for colon cancer LIPID PANEL, STANDARD Routine 06/27/2024 1:15 PM EDT Type 2 diabetes mellitus without complication, without long-term current use of insulin (CMS/HCC) BI MAMMOGRAM SCREEN W GREGG W IMPLANTS URIEL Routine 06/26/2024 1:44 PM EDT HEPATITIS C AB W/REFL TO HCV RNA, QN, PCR Routine 02/17/2023 8:40 AM EDT Healthcare maintenance HIV 1/2 ANTIGEN/ANTIBODY, FOURTH GENERATION W/RFL Routine 02/17/2023 8:40 AM EDT Healthcare maintenance ALBUMIN, RANDOM URINE W/CREATININE Routine 08/21/2020 9:49 AM EDT from Last 3 Months or Most Recently Relevant to Health Maintenance Results * XR Chest 2 Views (07/13/2025 12:49 PM EDT) Anatomical Region Laterality Modality Chest Radiographic Catherine ging 07/13/2025 12:4 9 PM EDT Narrative 07/13/2025 2:06 [place] [address] XRay Report Signed Patient: Rachel Myers MR#: [id number] : 1965 Acct:[id number] Age/Sex: 59 / F ADM Date: 07/13/25 Loc: HO.HHCX Attending Dr: Tawana Castle NP Ordering Physician: TAWANA CASTLE NP Date of Service: 07/13/25 Procedure(s): XR chest 2V Accession Number(s): [id number] cc: TAWANA ACSTLE NP EXAMINATION: XR CHEST 2 VIEWS HISTORY: positive t-spot COMPARISON: Comparison is made with the prior examination dated 04/26/2022. FINDINGS: PA and lateral views of the chest are submitted. The lungs are expanded and clear. There is no pleural effusion, pneumothorax, or pulmonary vascular congestion. The heart is normal in size. The bones are intact. XR/XR chest 2V IMPRESSION: No acute cardiopulmonary abnormality. Electronically signed by: Jim Riggs MD 07/13/2025 02:04 PM EDT RP Dictated By: Jim Riggs MD Signed By: <Electronically signed by Jim Riggs MD in OV> 07/13/25 1404 DD/ 1249 TD/TT: 07/13/25 1300 Behavioral Health Specialist: Procedure Note Donotuseinterpreter, Image - 07/13/[address] [address] XRay Report Signed Patient: Nakita Myers#: M [id number] : 1965Acct:[id number] Age/Sex: 59 / FADM Date: 07/13/25 Loc: HO.HHCX Attending Dr: Tawana Castle NP Ordering Physician: TAWANA CASTLE NP Date of Service: 07/13/25 Procedure(s): XR chest 2V Accession Number(s): [id number] cc: TAWANA CASTLE NP EXAMINATION: XR CHEST 2 VIEWS HISTORY: positive t-spot COMPARISON: Comparison is made with the prior examination dated 04/26/2022. FINDINGS: PA and lateral views of the chest are submitted. The lungs are expanded and clear. There is no pleural effusion, pneumothorax, or pulmonary vascular congestion. The heart is normal in size. The bones are intact. XR/XR chest 2V IMPRESSION: No acute cardiopulmonary abnormality. Electronically signed by: Jim Riggs MD 07/13/2025 02:04 PM EDT RP Dictated By: Jim Riggs MD Signed By: <Electronically signed by Jim Riggs MD in OV> 07/13/25 1404 DD/ 1249 TD/TT: 07/13/25 1300 Behavioral Health Specialist: Tawana Castle [facility] IM XR PROCEDURES Final Result * Chlamydia/N. Gonorrhoeae RNA, TMA, Vagina (07/09/2025 2:46 PM EDT) CT PCR NOT DETECTED Not Detect. [facility] Comment:A not detected test result does not exclude the possibilityof infection because test results can be affected byimproper specimen collection, concurrent antibiotic therapy,or the number of organisms in the specimen which may bebelow the sensitivity of the test. As with many diagnostictests, results from the Xpert CT/NG assay should beinterpreted in conjunction with other laboratory andclinical data available to the clinician.Xpert CT/NG performance has not been evaluated in patientsless than 14 years of age. The assay should not be used forthe evaluationof suspected sexual abuse or for other medico-legalindications. Additional testing is recommended in anycircumstance when false positive or false negative resultscould lead to adverse medical, social or psychologicalconsequences. NG PCR NOT DETECTED Not Detect. [facility] Comment:A not detected test result does not exclude the possibilityof infection because test results can be affected byimproper specimen collection, concurrent antibiotic therapy,or the number of organisms in the specimen which may bebelow the sensitivity of the test. As with many diagnostictests, results from the Xpert CT/NG assay should beinterpreted in conjunction with other laboratory andclinical data available to the clinician.Xpert CT/NG performance has not been evaluated in patientsless than 14 years of age. The assay should not be used forthe evaluationof suspected sexual abuse or for other medico-legalindications. Additional testing is recommended in anycircumstance when false positive or false negative resultscould lead to adverse medical, social or psychologicalconsequences. Swab Vaginal structure / Unknown 07/09/2025 2:46 PM EDT 07/09/2025 4:42 PM EDT [facility] LAB MICROBIOLOGY - GENERAL ORDER SUNDAR Final Result [facility] [address] [place] [phone] * Culture, Urine, Routine (07/09/2025 2:46 PM EDT) Urine Urine specimen obtained by clean catch procedure / Unknown 07/09/2025 2:46 PM EDT 07/09/2025 4:42 PM EDT Comment:UACC Narrative [facility] - 07/12/2025 1:29 PM EDT Escherichia coli Quant > 100,000 cfu/mL Strep agalactiae (Grp B) Quant 10,000 to 50,000 cfu/mL Susc N/A Susceptibility not routinely performed on this isolate. Escherichia coli: Ampicillin >=32(R) Escherichia coli: Cefazolin (Urine) 4(S) Escherichia coli: Cefepime <=0.12(S) Escherichia coli: Ceftriaxone <=0.25(S) Escherichia coli: Ciprofloxacin <=0.06(S) Escherichia coli: Gentamicin >=16(R) Escherichia coli: Nitrofurantoin <=16(S) Escherichia coli: Trimethoprim/Sulfamethoxazole >=320(R) Specimen Source: Urine clean catch us T[facility]ana [facility]ALL[facility] LAB MICROBIOLOGY - GENERAL ORDER SUNDAR Final Result [facility] [address] [place] [phone] * (ABNORMAL) POCT Urinalysis (07/09/2025 2:20 PM EDT) Only the most recent of2 resultswithin the time period is included. Color, UA Yellow Clarity, UA Clear Glucose, UA Negative Bilirubin, UA Negative Ketones, UA Negative Spec Grav, UA 1.015 Blood, UA Positive(A) Negative, None Detected pH, UA 6.5 Protein, UA Negative Urobilinogen, UA 0.2 Leukocytes, UA Many(A) Negative, Rare, Trace Nitrite, UA Positive(A) Negative, None Detected Appearance, UA clear QC Media Lot # [id number] Lot# Expiration Date [id number] Urine 07/09/2025 2:20 PM EDT us Tawana Castle ANP POINT OF CARE TEST ENTER/EDIT OR DERABLES Final Result * POCT HGB A1C (07/09/2025 2:18 PM EDT) Hemoglobin A1C 5.6 4.0 - 5.7 % QC Media Lot # [id number] Lot# Expiration Date Blood 07/09/2025 2:18 PM EDT us Tawana Castle ANP POINT OF CARE TEST ENTER/EDIT OR DERABLES Final Result * POCT Glucose (07/09/2025 2:18 PM EDT) Glucose Blood, POC 111 60 - 200 mg/dL QC Media Lot # [id number] Lot# Expiration Date Blood Capillary blood specimen / Unknown 07/09/2025 2:18 PM EDT us Tawana Castle ANP POINT OF CARE TEST ENTER/EDIT OR DERABLES Final Result * TSH W/Reflex to FT4 (07/09/2025 1:34 PM EDT) Pathologist [facility] TSH reflex Free T4 1.10 0.32 - 4.0 uIU/mL [facility] Blood Venous blood specimen / Unknown 07/09/2025 1:34 PM EDT 07/09/2025 4:04 PM EDT us Tawana Castle ANP LAB BLOOD ORDERABLES Final Resul t [facility] [address] [place] [phone] * Hemoglobin A1c (07/09/2025 1:34 PM EDT) Hemoglobin A1c 5.4 <6.0 % [facility] Comment:Hemoglobin A1C Refer ence Range Adults: 4.8 - 6.0 % Non diabetic: < 6.0 % Goal: < 7.0 %Additional Action Suggested: > 8.0 %Note: Hemoglobin A1c results are invalid for patients with abnormal amounts of HbF. Blood transfusions may impact the HbA1c concentration in the patient sample. Estimated Average Glucose 108 mg/dL [facility] Comment:eAG = Estimated ave rage glucose which is %A1C expressed asaverage glucose, using the formula of the F9C-IiuzuueZpfcwvg Glucose study (ADAG), Diabetes Care, Vol.31,#8,Jun. 2007 Blood Venous blood specimen / Unknown 07/09/2025 1:34 PM EDT 07/09/2025 4:04 PM EDT Tawana Castle ANP LAB BLOOD ORDERABLES Final Resul t Performing Organization Address [facility] Co de Phone Number [facility] [address] [place] [address] [phone] * (ABNORMAL) Basic Metabolic Panel (07/09/2025 1:34 PM EDT) Sodium 138 135 - 145 mmol/L [facility] Potassium 4.7 3.3 - 5.1 mmol/L [facility] Chloride 104 96 - 108 mmol/L [facility] Carbon Dioxide 26 22 - 29 mmol/L [facility] Anion Gap 13 12 - 20 [facility] Urea Nitrogen (BUN) 20(H) 9 - 16 mg/dL [facility] Creatinine, Serum 0.89 0.5 - 1.4 mg/dL [facility] Estimated Glomerular Filt Rate >60 [facility] Comment:Chronic Kidney Disea se: Estimated GFR < 60 mL/min/1.95f0Mbzykc Kidney Disease: Estimated GFR < 15 mL/min/1.73m2 Glucose 91 60 - 115 mg/dL [facility] Calcium 9.3 8.4 - 10.2 mg/dL [facility] Blood Venous blood specimen / Unknown 07/09/2025 1:34 PM EDT 07/09/2025 4:04 PM EDT Tawana Castle ANP LAB BLOOD ORDERABLES Final Resul t Performing Organization Address [facility]/ZIP Co de Phone Number [facility] [address] [place] [address] [phone] * (ABNORMAL) T-SPOT??.TB (07/09/2025 1:24 PM EDT) T Spot TB Positive( A) Negative [facility] Comment: Diagnosing or excluding tuberculosis (TB) disease andassessing the probability of latent TB infection (LTBI)requires a combination of epidemiological, historical,medical and diagnostic findings that should be takeninto consideration when interpreting T-SPOT.TB testresults. A positive test result does not rule in activeTB disease caused by Mycobacterium tuberculosis(M. tuberculosis); active TB disease should beconfirmed by other tests such as sputum smear andculture, PCR, and chest radiography.Uncommonly, a positive T-SPOT.TB result may be due toinfection with other Mycobacterium species includingM. kansasii, M. szulgai, M. gordonae, or M. marinum.Alternative tests would be required if these infectionsare suspected.The T-SPOT.TB test is qualitative and results arereported as positive, borderline, or negative, giventhat the test controls perform as expected. In linewith the Centers for Disease Control and Prevention's2010 recommendation to report quantitative measurementsalongside the qualitative result, the laboratoryprovides spot counts for informational purposes only.The T-SPOT.TB test should not be interpreted as aquantitative test. TS PANEL A 6 [facility] TS PANEL B 11 [facility] Negative Control Passed [facility] Positive Control Passed [facility] Comment:For additional infor salvador, please refer tohttp://education.ChaoWIFI/faq/SRQ966(This link is being provided for informational/educational purposes only.)THIS TEST WAS PERFORMED AT:[facility] [place] [address]VZGTFDWLYNETTE MORAES MD,PHD 07/09/2025 1:24 PM EDT 07/09/2025 4:04 PM EDT [facility] LAB BLOOD ORDERABLES Final Resul t [facility] [address] [place] [phone] [phone] * POCT Rapid COVID Ag (05/07/2025 2:08 PM EDT) Rapid COVID Ag Negative Swab 05/07/2025 2:08 PM EDT Cesia Cooley MD POINT OF CARE TEST ENTER/EDIT OR DERABLES Final Result * (ABNORMAL) Cologuard?? colon cancer screening (02/11/2025 11:00 AM EDT) Cologuard Result Positive( A) Negative 02/16/2025 11:55 PM EDT [facility] (CLIA #:[id number]) Comment: POSITIVE TEST RESULT. A positive Cologuard result should be followed with a colonoscopy or visual examination of the colon. The normal value (reference range) for this assay is negative. TEST DESCRIPTION: Composite algorithmic analysis of stool DNA-biomarkers with hemoglobin immunoassay. Quantitative values of individual biomarkers are not reportable and are not associated with individual biomarker result reference ranges. Cologuard is intended for colorectal cancer screening of adults of either sex, 45 years or older, who are at average-risk for colorectal cancer (CRC). Cologuard has been approved for use by the U.S. FDA. The performance of Cologuard was established in a cross sectional study of average-risk adults aged 50-84. Cologuard performance in patients ages 45 to 49 years was estimated by sub-group analysis of near-age groups. Colonoscopies performed for a positive result may find as the most clinically significant lesion: colorectal cancer [4.0%], advanced adenoma (including sessile serrated polyps greater than or equal to 1cm diameter) [20%] or non- advanced adenoma [31%]; or no colorectal neoplasia [45%]. These estimates are derived from a prospective cross-sectional screening study of 10,000 individuals at average risk for colorectal cancer who were screened with both Cologuard and colonoscopy. (Julissa Todd al, N Engl J Med 2014;370(14):8140-7452.) Cologuard may produce a false negative or false positive result (no colorectal cancer or precancerous polyp present at colonoscopy follow up). A negative Cologuard test result does not guarantee the absence of CRC or advanced adenoma (pre-cancer). The current Cologuard screening interval is every 3 years. ([place] [employer] Society and U.S. Multi-Society Task Force). Cologuard performance data in a 10,000 patient pivotal study using colonoscopy as the reference method can be accessed at the following location: www.Joobili/results. Additional description of the Cologuard test process, warnings and precautions can be found at www.C-samrd.[employer] Stool specimen (specimen) 02/11/2025 11:00 AM EDT 02/13/2025 11:55 AM EDT [facility] LAB MOLECULAR DIAGNOSTICS ORDERA BLES Final Result [facility] (CLIA #:[id number]) [address] [place] [address], * Lipid Panel, Standard (06/27/2024 1:15 PM EDT) Triglycerides 94 <150 mg/dL [facility] Comment:Desirable Triglyceri de: less than 150 mg/dLBorderline High Triglyceride 150-199 mg/dLHigh Triglyceride: 200-499 mg/dLVery High Triglyceride: greater than or equal to 5OO mg/dL Cholesterol 153 <200 mg/dL [facility] Comment:Desirable Cholestero l: less than 200 mg/dLBorderline High Cholesterol: 200-239 mg/dLHigh Cholesterol: greater than 239 mg/dL LDL Cholesterol Calculated 84 <100 mg/dL [facility] Comment:Desirable LDL: less than 100 mg/dLNear Optimal/Above Optimal LDL: 110- 129 mg/dLBorderline High LDL: 130-159 mg/dLHigh LDL: 160-189 mg/dLVery High LDL: greater than or equal to 190 mg/dL HDL Cholesterol 51 >40 mg/dL [facility] Comment:Desirable HDL: great er than 40 mg/dL Note: This HDL assay may give artificially low results in patients with liver disease. Blood Venous blood specimen / Unknown 06/27/2024 1:15 PM EDT 06/27/2024 4:50 PM EDT Tawana Castle ANP LAB BLOOD ORDERABLES Final Resul t [facility] [address] [place] [phone] * BI Mammogram Screen w/ Grgeg w/ Implants Uriel (06/26/2024 1:44 PM EDT) Anatomical Region Laterality Modality Mammography 06/26/2024 1:44 PM EDT Narrative 07/05/2024 6:54 PM EDT [address] [place] [address] Mammography Report Signed Patient: Rachel Myers MR#: [id number] : 1965 Acct:[id number] Age/Sex: 58 / F ADM Date: 06/26/24 Loc: HO.MAMMO Attending Dr: Tawana Castle NP Ordering Physician: TAWANA CASTLE NP Results: 1Negative Date of Service: 06/26/24 Follow Up: 1 Year From [facility] ina Mammogram Procedure(s): MM tomosynthesis screen imp BI Accession Number(s): [id number] cc: TAWANA CASTLE NP EXAMINATION: MM SCREENING DIGITAL BREAST TOMOSYNTHESIS, BILATERAL WITH BREAST IMPLANTS CLINICAL INFORMATION: Screening. Asymptomatic. COMPARISON: Mammography: This study is compared with prior breast imaging dating back to 2021. TECHNIQUE: Digital mammography is performed in craniocaudal and mediolateral oblique views along with computer-aided detection (CAD). Digital breast tomosynthesis is performed in implant-displaced craniocaudal and implant-displaced mediolateral oblique views along with computer-aided detection (CAD). Synthesized 2D images are generated from the tomosynthesis. FINDINGS: There are scattered areas of fibroglandular density (ACR BI-RADS breast composition Category b). There are bilateral, mammographically intact, retropectoral saline breast implants. There are no significant masses, abnormal calcifications, or other abnormalities. MM/MM tomosynthesis screen imp BI IMPRESSION: No mammographic signs of malignancy. ASSESSMENT: BI-RADS BI-RADS 1 - Negative RECOMMENDATION: Routine annual mammography screening. 1 year F/U This patient's information was entered into a reminder system with a target due date for their next mammogram. Dictated By: Shae Brown MD Signed By: <Electronically signed by Shae Brown MD in OV> 07/05/24 1849 DD/ 1344 TD/TT: Behavioral Health Specialist: Procedure Note Donotuseinterpreter, Image - 07/05/2024 [facility] [address] [place] [address] Mammography Report Signed Patient: Nakita Myers#: M [id number] : 1965Acct:[id number] Age/Sex: 58 / FADM Date: 06/26/24 Loc: EMILYO Attending Dr: Tawana Castle NP Ordering Physician: TAWANA CASTLE NPResults: 1Negative Date of Service: 06/26/24Follow Up: 1 Year From Orig inal Mammogram Procedure(s): MM tomosynthesis screen imp BI Accession Number(s): [id number] cc: TAWANA CASTLE NP EXAMINATION: MM SCREENING DIGITAL BREAST TOMOSYNTHESIS, BILATERAL WITH BREAST IMPLANTS CLINICAL INFORMATION: Screening. Asymptomatic. COMPARISON: Mammography: This study is compared with prior breast imaging dating back to 2021. TECHNIQUE: Digital mammography is performed in craniocaudal and mediolateral oblique views along with computer-aided detection (CAD). Digital breast tomosynthesis is performed in implant-displaced craniocaudal and implant-displaced mediolateral oblique views along with computer-aided detection (CAD). Synthesized 2D images are generated from the tomosynthesis. FINDINGS: There are scattered areas of fibroglandular density (ACR BI-RADS breast composition Category b). There are bilateral, mammographically intact, retropectoral saline breast implants. There are no significant masses, abnormal calcifications, or other abnormalities. MM/MM tomosynthesis screen imp BI IMPRESSION: No mammographic signs of malignancy. ASSESSMENT: BI-RADS BI-RADS 1 - Negative RECOMMENDATION: Routine annual mammography screening. 1 year F/U This patient's information was entered into a reminder system with a target due date for their next mammogram. Dictated By: Shae Brown MD Signed By: <Electronically signed by Shae Brown MD in OV> 07/05/24 1849 DD/ 1344 TD/TT: Behavioral Health Specialist: Tawana Castle ANP IMG BI PROCEDURES Final Result * Hepatitis C Antibody with Reflex to HCV, RNA, Quantitative, Real-Time PCR (02/17/2023 8:40 AM EDT) Hepatitis C Antibody NON-REACT MEGAN NON-REACT MEGAN [facility] Index 0.04 <1.00 [facility] Comment: HCV antibody was non-reactive. There is no laboratory evidence of HCV infection. In most cases, no further action is required. However, if recent HCV exposure is suspected, a test for HCV RNA (test code 85573) is suggested. For additional information please refer to http://education.ChaoWIFI/faq/YAR05d7 (This link is being provided for informational/ educational purposes only.) Blood Venous blood specimen / Unknown 02/17/2023 8:40 AM EDT 02/17/2023 8:41 AM EDT Narrative [facility] - 02/18/2023 10:35 AM EDT FASTING:YES FASTING: YES Result [facility] Tawana Castle ANP LAB BLOOD ORDERABLES Final Resul t [facility] [address] [facility], [place] [address] [facility] [address] [place] [address] * HIV-1/2 Antigen and Antibodies, Fourth Generation, with Reflexes (02/17/2023 8:40 AM EDT) HIV Antigen/Antibody, 4th Generation NON-REAC TIVE NON-REAC TIVE [facility] Comment: HIV-1 antigen and HIV-1/HIV-2 antibodies were not detected. There is no laboratory evidence of HIV infection. PLEASE NOTE: This information has been disclosed to you from records whose confidentiality may be protected by state law. If your state requires such protection, then the state law prohibits you from making any further disclosure of the information without the specific written consent of the person to whom it pertains, or as otherwise permitted by law. A general authorization for the release of medical or other information is NOT sufficient for this purpose. For additional information please refer to http://education.ChaoWIFI/faq/WMX812 (This link is being provided for informational/ educational purposes only.) The performance of this assay has not been clinically validated in patients less than 2 years old. Blood Venous blood specimen / Unknown 02/17/2023 8:40 AM EDT 02/17/2023 8:41 AM EDT [facility] - 02/18/2023 10:35 AM EDT FASTING:YES FASTING: YES [facility] LAB BLOOD ORDERABLES Final Resul t [facility] [address], [place] [address] [facility] [employer] [facility] [address] [place] [address] * ALBUMIN, RANDOM URINE W/CREATININE (08/21/2020 9:49 AM EDT) Creatinine, Urine 23 20 - 275 mg/dL [facility] Microalbumin Urine <0.2 See Note: mg/dL [facility] Comment: Reference Range: Reference Range Not established Microalb/Creat Ratio NOTE <30 mcg/mg creat [facility] Comment: NOTE: The urine albumin value is less than 0.2 mg/dL therefore we are unable to calculate excretion and/or creatinine ratio. The ADA defines abnormalities in albumin excretion as follows: Category Result (mcg/mg creatinine) Normal <30 Microalbuminuria 30-299 Clinical albuminuria > OR = 300 The ADA recommends that at least two of three specimens collected within a 3-6 month period be abnormal before considering a patient to be within a diagnostic category. Microalbumin Urine <0.2 See Note: mg/dL [facility] Comment: Reference Range: Reference Range Not established Microalb/Creat Ratio NOTE <30 mcg/mg creat [facility] Comment: NOTE: The urine albumin value is less than 0.2 mg/dL therefore we are unable to calculate excretion and/or creatinine ratio. The ADA defines abnormalities in albumin excretion as follows: Category Result (mcg/mg creatinine) Normal <30 Microalbuminuria 30-299 Clinical albuminuria > OR = 300 The ADA recommends that at least two of three specimens collected within a 3-6 month period be abnormal before considering a patient to be within a diagnostic category. Creatinine, Urine 23 20 - 275 mg/dL [facility] Microalbumin Urine <0.2 See Note: mg/dL [facility] Comment: Reference Range: Reference Range Not established Microalb/Creat Ratio NOTE <30 mcg/mg creat [facility] Comment: NOTE: The urine albumin value is less than 0.2 mg/dL therefore we are unable to calculate excretion and/or creatinine ratio. The ADA defines abnormalities in albumin excretion as follows: Category Result (mcg/mg creatinine) Normal <30 Microalbuminuria 30-299 Clinical albuminuria > OR = 300 The ADA recommends that at least two of three specimens collected within a 3-6 month period be abnormal before considering a patient to be within a diagnostic category. Creatinine, Urine 23 20 - 275 mg/dL [facility] 08/21/2020 9:49 AM EDT us Historical Provider LAB URINE ORDERABLES Josefina l Result [facility] [address] from Last 3 Months or Most Recently Relevant to Health Maintenance Insurance [facility]ARE < 65 [place] [id number] Care Teams Dental Hygiene Administrative Assistant Relationship Specialty Start Date End Date Tawana Castle ANP [address] [place] [phone] PCP - General Family Medicine 07/21/21
--- OUTSIDE RECORDS SUMMARY | 2025-08-03 10:56 | XMS_ITS | Encounter Summary ---
Author Organization [facility] Address [address] [place] [address] Care Team Providers Care Match Up Worker Name Role Phone Jessy Randall Primary Care Provider [phone] Reason for Visit * Reason Onset Date Comments error 11/18/2023 Encounter Details Date Type Department Care Team ([facility] st Contact Info) Description 11/18/2023 Telephone [facility] [address] [place], [place] [phone] Jessy Randall ANP [address] [place] [address] error Social History Tobacco Use Types Packs/Day Years [...] EDT Office Visit [facility] [address] [place], [place] [phone] Zach Lewis MD [address] [place] [address] documented as of this encounter Visit Diagnoses Not on filedocumented in this encounter Care Teams Match Up Worker Relationship Specialty Start Date End Date Jessy Randall ANP [address] [place], [place] [phone] PCP - General Family Medicine 07/21/21 documented as of this encounter
--- OUTSIDE RECORDS SUMMARY | 2025-08-03 10:56 | XMS_ITS | Encounter Summary ---
Author Organization [employer] [facility] Address [address] [facility] [address]t [place] [address] Care Team Providers Care Wallet Assembler Name Role Phone Jessy Randall Primary Care Provider [phone] Reason for Visit * Reason Comments Med Refill Encounter Details Date Type Department Care Team ([facility] Contact Info) Description 11/19/2022 Refill [facility] [address] [place] [phone] Jessy Randall ANP [address] [place] [address] Anxiety disorder, unspecified Social History Tobacco Use [...] Upcoming Encounters Date Type Department Care Team ([facility] Contact Info) Description 09/21/2025 10:15 AM EDT Office Visit [facility] [address] [place] [phone] Zach Lewis MD [address] [place] [address] documented as of this encounter Visit Diagnoses Diagnosis Anxiety disorder, unspecified documented in this encounter Care Teams Wallet Assembler Relationship Specialty Start Date End Date Jessy Randall ANP [address] [place] [address] PCP - General Family Medicine 07/21/21 documented as of this encounter
--- OUTSIDE RECORDS SUMMARY | 2025-08-03 10:56 | XMS_ITS | Encounter Summary ---
Author Organization [facility] Address [address] [facility] [address]t [place] [address] Care Team Providers Care Cognos Bi Developer Name Role Phone Jessy Randall Primary Care Provider [phone] Reason for Visit * Reason Onset Date Comments Med Refill 11/25/2023 Encounter Details Date Type Department Care Team ([facility] st Contact Info) Description 11/25/2023 Telephone [facility] [address] [place] [address] Jessy Randall ANP [address] [place] [address] Med Refill Social History Tobacco Use Types Packs/Day Years [...] AM EDT documented as of this encounter Miscellaneous Notes * Telephone Encounter - Alisa Pavon LPN - 11/25/2023 9:33 AM EST Medication was sent to [facility] on 11/04/23. * Telephone Encounter - Mihaela Schwab - 11/25/2023 9:29 AM EST TC from pt requesting medication refill. Medications needing refill : dulaglutide (Trulicity) 0.75 MG/0.5ML solution pen-injector [facility] documented in this encounter Plan of Treatment Upcoming Encounters Date Type Department Care Team (Late st Contact Info) Description 09/21/2025 10:15 AM EDT Office Visit [facility] [address] [place] [address] Zach Lewis MD [address] [place] [address] documented as of this encounter Visit Diagnoses Not on filedocumented in this encounter Care Teams Cognos Bi Developer Relationship Specialty Start Date End Date Jessy Randall ANP [address] [place] [address] PCP - General Family Medicine 07/21/21 documented as of this encounter
--- OUTSIDE RECORDS SUMMARY | 2025-08-03 10:56 | XMS_ITS | Encounter Summary ---
Author Organization [employer] Address [address] [place] [address] Care Team Providers Care Receiving Coordinator Name Role Phone Jessy Randall KAVITA Primary Care Provider [phone] Reason for Visit * Reason Comments [facility] Encounter Details Date Type Department Care Team (Late st Contact Info) Description 07/31/2025 Patient Outreach [facility] [address] [place] [address] Daniel Trevizo Recovery Supports Social History Tobacco Use Types Packs/Day Years [...] AM EDT documented as of this encounter Progress Notes * Daniel Trevizo - 07/31/2025 3:16 PM EDT I met with Rachel polanco. Setting: in person at [facility] Recovery Wellness Goals worked on: Physical Health/Mental Health Social Stability Spiritual Wellness Action taken/next steps: Attended recovery support group Contingency management Additional comments: Daniel Trevizo documented in this encounter Plan of Treatment Upcoming Encounters Date Type Department Care Team (Late st Contact Info) Description 09/21/2025 10:15 AM EDT Office Visit [facility] [address] [place] [address] Zach Lewis MD [address] [place] [address] documented as of this encounter Visit Diagnoses Not on filedocumented in this encounter Additional Health Concerns Assessment Noted Time PHQ-9 Depression Total Score: 0 07/09/20 25 2:17 PM EDT documented as of this encounter Care Teams Receiving Coordinator Relationship Specialty Start Date End Date Jessy Randall ANP [address] [place] [phone] PCP - General Family Medicine 07/21/21 documented as of this encounter
--- OUTSIDE RECORDS SUMMARY | 2025-08-03 10:56 | XMS_ITS | Encounter Summary ---
Author Organization [employer] Address [address] [facility] [address] 7t [place] [address] Care Team Providers Care Tray Worker Name Role Phone Jessy Randall Primary Care Provider [phone] Reason for Visit * Reason Onset Date Comments Referral 11/25/2023 Encounter Details Date Type Department Care Team ([facility] st Contact Info) Description 11/25/2023 Telephone [facility] MEDICINE [address] [place], [place] [phone] Jessy Randall ANP 230 [place] [address] Referral Social History Tobacco Use Types Packs/Day Years [...] encounter Miscellaneous Notes * Telephone Encounter - Mihaela Schwab - 11/25/2023 9:28 AM EST Tc from pt requesting to add visit on the Physical Therapy referral. documented in this encounter Plan of Treatment Upcoming Encounters Date Type Department Care Team (Late st Contact Info) Description 09/21/2025 10:15 AM EDT Office Visit [facility] MEDICINE [address] [place] [address] Zach Lewis MD 230 [place] [address] documented as of this encounter Visit Diagnoses Not on filedocumented in this encounter Care Teams Tray Worker Relationship Specialty Start Date End Date Jessy Randall ANP 230 [place] [address] PCP - General Family Medicine 07/21/21 documented as of this encounter
--- OUTSIDE RECORDS SUMMARY | 2025-08-03 10:57 | XMS_ITS | Encounter Summary ---
Author Organization [employer] Address 75 [facility] 7t [place] [address] Care Team Providers Care Folder Machine Adjuster Name Role Phone Jessy Randall Primary Care Provider [phone] Reason for Visit * Reason Onset Date Comments Med Change Request 05/04/2024 Encounter Details Date Type Department Care Team ([facility] st Contact Info) Description 05/04/2024 Telephone [facility] MEDICINE [address] [place] [address] Jessy Randall ANP 230 [place] [address] Med Change Request Social History Tobacco Use Types Packs/Day Years [...] encounter Miscellaneous Notes * Telephone Encounter - Aurelia Gallo RN - 05/04/2024 3:[address] to pt in regards to Trulicity 0.75 dosage. Pt states that PCP started her on the lowest dose primarily for weight loss. Pt reports that the weight loss has slowed and appetite is not suppressed. Pt is inquiring if a higher dose is needed. Forwarding to PCP for review * Telephone Encounter - Mihaela Schwab - 05/04/2024 2:11 PM EDT Tc from pt requesting change dose on Trulicity, stated 0.75 is not working any more. documented in this encounter Plan of Treatment Upcoming Encounters Date Type Department Care Team (Late st Contact Info) Description 09/21/2025 10:15 AM EDT Office Visit [facility] MEDICINE [address] [place] [address] Zach Lewis MD 230 [place] [address] documented as of this encounter Visit Diagnoses Not on filedocumented in this encounter Care Teams Folder Machine Adjuster Relationship Specialty Start Date End Date Jessy Randall ANP 230 [place] [address] PCP - General Family Medicine 07/21/21 documented as of this encounter
--- OUTSIDE RECORDS SUMMARY | 2025-08-03 10:57 | XMS_ITS | Encounter Summary ---
Author Organization [employer] Address 75 [facility] 7t [place] [address] Care Team Providers Care Budget Specialist Name Role Phone Jessy Randall Primary Care Provider [phone] Reason for Visit * Reason Onset Date Comments Medication Question 04/11/2025 Encounter Details Date Type Department Care Team ([facility] st Contact Info) Description 04/11/[address] [facility] MEDICINE [address] [place] [address] Jessy Randall ANP 230 [place] [address] Medication Question Social History Tobacco Use Types Packs/Day Years Used Date Smoking Tobacco: Former Cigarettes Q uit: 10/2023 Passive Smoke Exposure: Past Smokeless Tobacco: Never Alcohol Use Standard Drinks/Week Comments Not Currently 0 (1 standard drink = 0.6 oz pur e alcohol) Depression Answer Date Recorded Patient Health Questionnaire-9 Score 11 01/08/2025 Patient Health Questionnaire-9 Score 11 01/08/2025 Last PHQ-9: Questionnaire Data Not on file 0 01/08/2025 Housing Stability Answer Date Recorded What is your housing situation today? I have les whitley 01/08/[address] you li ve. Do you have problems with any of the following? None of the above 01/08/2025 Food Insecurity Answer Date Recorded Within the past 12 months, y ou worried that your food would run out before you got money to buy more: Not on file 01/08/2025 Within the past 12 months,th e food you bought just didn't last and you didn't have enough money to get more: Never True 08/2025 Transportation Answer Date Recorded In the past 12 months, has l ack of transportation kept you from medical appts, meetings, work or from getting things needed for daily living? No 01/08/2025 Utilities Answer Date Recorded In the past 12 months, has t he electric, gas, oil or water company threatened to shut off services in your home? I am not sure 01/08/2025 Depression Answer Date Recorded Patient Health Questionnaire-2 Score 1 01/08/2025 Internet Access Answer Date Recorded Internet Access [...] Telephone Encounter - Aurelia Gallo RN - 04/11/2025 3:22 PM EDT TC placed to [facility] in to inquire about the schedule for Elie Jovel and if the pt would beable to transfer her care over to him. The pt reported that former psychiatrist Alysia Gould at [facility] in [place] has retired. RN tried to call [facility] to confirm this information but was on hold for some time. [facility] states that she will call that office to inquire as there is a process to changing providers. This message will routed to [facility] in * Telephone Encounter - Citlali Cordoba - 04/11/2025 1:09 PM EDT Tc from pt requesting a call back. Pt stated she was following up with psychiatrist but current oneretired. Pt stated she was advised to request a new referral to a different psychiatrist and pcp toprescribe medication until pt establishes care. Contact pt at [phone] (chinese) documented in this encounter Plan of Treatment Upcoming Encounters Date Type Department Care Team (Late st Contact Info) Description 09/21/2025 10:15 AM EDT Office Visit [facility] MEDICINE [address] [place] [address] Zach Lewis MD [address] [place] [address] documented as of this encounter Visit Diagnoses Not on filedocumented in this encounter Additional Health Concerns Assessment Noted Time PHQ-9 Depression Total Score: 11 025 2:04 PM EST documented as of this encounter Care Teams Budget Specialist Relationship Specialty Start Date End Date Jessy Randall ANP 230 [place], [place] [phone] PCP - General Family Medicine 07/21/21 documented as of this encounter
--- OUTSIDE RECORDS SUMMARY | 2025-08-03 10:57 | XMS_ITS | Encounter Summary ---
Author Organization [employer] Address [address] [facility] [address] 7t [place] [address] Care Team Providers Care Core Measures Abstractor Name Role Phone Jessy Randall Primary Care Provider [phone] Reason for Visit * Reason Comments Med Refill Encounter Details Date Type Department Care Team ([facility] st Contact Info) Description 04/18/2024 Refill [facility] MED & PEDS [address] [place], [place] [phone] Jessy Randall ANP 230 [place] [address] Pain Social History Tobacco Use Types Packs/Day Years [...] Office Visit [facility] MEDICINE [address] [place] [address] Zach Lewis MD 230 [place] [address] documented as of this encounter Visit Diagnoses Diagnosis Pain Generalized pain documented in this encounter Care Teams Core Measures Abstractor Relationship Specialty Start Date End Date Jessy Randall ANP [address] [place] [address] PCP - General Family Medicine 07/21/21 documented as of this encounter
--- OUTSIDE RECORDS SUMMARY | 2025-08-03 10:57 | XMS_ITS | Clinical Summary ---
Author Organization [facility] Address 175 [place] [address] Phone Care Team Providers Care Mexican Food Cook Name Role Phone ToniaJessy Dann LEIGH Primary Care Provider [phone] Social History Tobacco Use Types Packs/Day Years Used Date Smoking Tobacco: Never Assessed Comments Unknown Sex and Gender Information Value Date Recorded Sex Assigned at Not on file Legal Sex Female 11:40 AM EDT Gender Identity Not on file Sexual Orientation Not on file Plan of Treatment Upcoming Encounters Date Type Department Care Team ([facility] Contact Info) Description 08/29/2025 2:15 PM EDT Consult Orthopedic Surgery - [place] [address] [phone] Du Guerrero, ALBERT [address] [address] Health Maintenance Due Date Last Done Comments Breast Cancer Screening 1965 Diabetes: Annual GFR (Glomer ular Filtration Rate) 1965 Diabetes: Annual Foot Exam 1975 Diabetes: Annual Retina Eye Exam 1975 DTaP,Tdap,and Td Vaccines (1 - Tdap) 1984 Hepatitis B Vaccines (1 of 3 - 19+ 3-dose series) 1984 Pneumococcal Vaccine: 50+ Ye ars (1 of 2 - PCV) 1984 Cervical Cancer Screening: P ap Smear 1986 Zoster Vaccines (1 of 2) 2015 Cholesterol Screening (Lipid Panel) 09/23/2024 Colorectal Cancer Screening: Colonoscopy 09/23/2024 HIV Screening 09/23/2024 Hepatitis C Screening 09/23/2024 Medicare Annual Wellness Visit 09/23/2024 Social Influencers of Health Screening 09/23/2024 Depression Screening 11/29/2024 Diabetes: Annual Urine Albumin-Creatinine Ratio (uACR) 07/12/2025 Diabetes: Blood Sugar Contro l Test (HGBA1C) 07/12/2025 COVID-19 Vaccine (2023-2 5 season) 2025 Influenza Vaccine (#1) 2025 RSV Immunization Adult Patie nts (1 - 1-dose 75+ series) 2040 HIB Vaccines Aged Out No longer eligi [...] on patient's age to complete this topic MMR Vaccines Aged Out No longer eligi ble based on patient's age to complete this topic Meningococcal ACWY Vaccine Aged Out N o longer eligible based on patient's age to complete this topic Meningococcal B Vaccine Aged Out No l onger eligible based on patient's age to complete this topic RSV Immunization Patients Un kristin 20 months Aged Out No longer eligible b ased on patient's age to complete this topic Varicella Vaccines Aged Out No longer eligible based on patient's age to complete this topic Insurance [facility] MEDICARE Member Subscriber Plan / Payer (Ef fective 2023-Present) Name:RACHEL MYERS Relation to Subscriber:Self Name:Rachel Myers Payer ID:[id number] Group ID:[id number] Type:Not on file Address: [facility] [address] [id number] Care Teams Mexican Food Cook Relationship Specialty Start Date End Date Jessy Randall NP [address] [place] [address] 1 [place] [address] [facility] - General 06/28/24
--- OUTSIDE RECORDS SUMMARY | 2025-08-03 10:57 | XMS_ITS | Encounter Summary ---
Author Organization [employer] Address 75 [facility] 7t [place] [address] Care Team Providers Care Airport Clerk Name Role Phone Jessy Randall Primary Care Provider [phone] Reason for Visit * Reason Onset Date Comments Nurse Triage 02/21/2025 Encounter Details Date Type Department Care Team ([facility] st Contact Info) Description 02/21/2025 Telephone [facility] MEDICINE 230 [place] [address] Jessy Randall ANP 230 [place] [address] Nurse Triage Social History Tobacco Use Types [...] Telephone Encounter - Floresita Portillo RN - 02/21/2025 9:47 AM EDT Triage call with Movik Networksinterpreter deaf [place] [id number]. Pt is at work at time of call. Pt reports urinary symptoms for a week now which consist of urine being clear and having the consistency of oil , frequency, low back pain and nausea. Pt reports night sweats and increased thirst. ASK apt with PCP 02/23/25 @ 1130am. Pt agrees with disposition and insurance is verified as active prior to booking. Protocol Used: Urinary Symptoms (Adult) Protocol-Based Disposition: See in Office or Video Visit within 2 Weeks Positive Triage Question: * All other urine symptoms * All higher-acuity triage questions were negative Care Advice Discussed: * Reasons To Call Back - Fever occurs - Pain or burning with urination - You become worse * Telephone Encounter - Justina Cuello - 02/21/2025 9:11 AM EDT Symptom: Urine Symptoms Outcome: Schedule a same-day appointment or talk to a nurse or provider today Reason: Caller denied all higher acuity questions The caller accepted this outcome. documented in this encounter Plan of Treatment Upcoming Encounters Date Type Department Care Team (Late st Contact Info) Description 09/21/2025 10:15 AM EDT Office Visit [facility] MEDICINE 230 [place] [address] Zach Lewis MD [address] [place], [place] [phone] documented as of this encounter Visit Diagnoses Not on filedocumented in this encounter Additional Health Concerns Assessment Noted Time PHQ-9 Depression Total Score: 11 025 2:04 PM EST documented as of this encounter Care Teams Airport Clerk Relationship Specialty Start Date End Date Jessy Randall ANP 230 [place], [place] [phone] PCP - General Family Medicine 07/21/21 documented as of this encounter
--- OUTSIDE RECORDS SUMMARY | 2025-08-03 10:57 | XMS_ITS | Encounter Summary ---
Author Organization [employer] Address 75 [facility] 7t [place] [address] Care Team Providers Care Aoc Director Intelligence Officer Name Role Phone Jessy Randall Primary Care Provider Reason for Visit * Reason Comments Med Refill Encounter Details Date Type Department Care Team (Late Contact Info) Description 05/05/2023 Refill [facility] MEDICINE [address] [place] [address] Jessy Randall ANP [address] [place] [address] Chronic migraine without aura without status migrainosus, not intractable Social History Tobacco Use Types Packs/Day Years Used Date Smoking Tobacco: Every Day Cigarettes Passive Smoke Exposure: Current Smokeless Tobacco: Never Alcohol Use Standard Drinks/Week Comments Not Currently 0 (1 standard drink = 0.6 oz pur e alcohol) Depression Answer Date Recorded Patient Health Questionnaire-2 [...] suspected to have Coronavirus/COVID-19? No / Unsure 04/20/2023 3:43 PM EDT documented as of this encounter Plan of Treatment Upcoming Encounters Date Type Department Care Team (Late Contact Info) Description 09/21/2025 10:15 AM EDT Office Visit [facility] MEDICINE [address] [place] [address] Zach Lewis MD [address] [place] [address] documented as of this encounter Visit Diagnoses Diagnosis Chronic migraine without aura without status migrainosus, not intractable documented in this encounter Care Teams Aoc Director Intelligence Officer Relationship Specialty Start Date End Date Jessy Randall ANP [address] [place] [address] PCP - General Family Medicine 07/21/21 documented as of this encounter
--- OUTSIDE RECORDS SUMMARY | 2025-08-03 10:57 | XMS_ITS | Encounter Summary ---
Author Organization [employer] Address 75 [facility] 7t [place] [address] Care Team Providers Care Director Of Marketing And Promotions Name Role Phone Jessy Randall Primary Care Provider [phone] Encounter Details Date Type Department Care Team ([facility] st Contact Info) Description 07/12/2025 Results Follow-Up [facility] MEDICINE [address] [place] [address] Jessy Randall, ANP [address] [place] [address] POCT Glucose, POCT HGB A1C, Culture, Urine, Routine, Additional followed-up results: 2 Social History Tobacco Use Types Packs/Day Years [...] Description 09/21/2025 10:15 AM EDT Office Visit [facility] MEDICINE [address] [place] [address] Zach Lewis MD [address] [place] [address] documented as of this encounter Visit Diagnoses Not on filedocumented in this encounter Additional Health Concerns Assessment Noted Time PHQ-9 Depression Total Score: 0 07/09/20 25 2:17 PM EDT documented as of this encounter Care Teams Director Of Marketing And Promotions Relationship Specialty Start Date End Date Jessy Randall ANP [address] [place] [address] PCP - General Family Medicine 07/21/21 documented as of this encounter
--- OUTSIDE RECORDS SUMMARY | 2025-08-03 10:57 | XMS_ITS | Encounter Summary ---
Author Organization [employer] Address 75 [facility] 7t [place] [address] Care Team Providers Care Rehab Nurse Name Role Phone Jessy Randall Primary Care Provider [phone] Reason for Visit * Reason Onset Date Comments Telephone call 07/24/2025 Encounter Details Date Type Department Care Team ([facility] st Contact Info) Description 07/24/2025 Telephone [facility] MEDICINE 230 [place] [address] Jessy Randall ANP [address] [place] [address] Telephone call Social History Tobacco Use Types Packs/Day Years [...] Telephone Encounter - Aurelia Gallo RN - 08/02/2025 4:13 PM EDT Return call placed to the pt to inquire on the need for a shower chair per PCP request. The number in the chart has a [place] area code and was unable to be reached. No alternative numbers in thept chart to contact. * Telephone Encounter - Sage Armenta - 07/24/2025 3:58 PM EDT Patient walked In requesting she be prescribed the following: -Shower Chair -Walker - Patches to stop smoking documented in this encounter Plan of Treatment Upcoming Encounters Date Type Department Care Team (Late st Contact Info) Description 09/21/2025 10:15 AM EDT Office Visit [facility] MEDICINE [address] [place] [address] Zach Lewis MD [address] [place] [address] documented as of this encounter Visit Diagnoses Not on filedocumented in this encounter Additional Health Concerns Assessment Noted Time PHQ-9 Depression Total Score: 0 07/09/20 25 2:17 PM EDT documented as of this encounter Care Teams Rehab Nurse Relationship Specialty Start Date End Date Jessy Randall ANP 230 [place] [address] PCP - General Family Medicine 07/21/21 documented as of this encounter
--- OUTSIDE RECORDS SUMMARY | 2025-08-03 10:57 | XMS_ITS | Encounter Summary ---
Author Organization [employer] Address [address] [facility] [address] 7t [place] [address] Care Team Providers Care Plant Equipment Engineer Name Role Phone Jessy Randall Primary Care Provider [phone] Reason for Visit * Reason Comments Med Refill Encounter Details Date Type Department Care Team ([facility] st Contact Info) Description 09/08/2023 Refill [facility] CH[facility] MED & PEDS [address] [place], [place] [phone] Jessy Randall ANP 230 [place] [address] Pain Social History Tobacco Use Types Packs/Day Years Used Date Smoking Tobacco: Former Cigarettes Passive Smoke Exposure: Current Smokeless Tobacco: Never Alcohol Use Standard Drinks/Week Comments Not Currently 0 (1 standard drink = 0.6 oz pur e alcohol) Housing Stability Answer Date Recorded What is your housing situation today? I have les whitley 09/06/[address] you li ve. Do you have problems with any of the following? None of the above 09/06/2023 Food Insecurity Answer Date Recorded Within the past 12 months, y ou worried that your food would run out before you got money to buy more: Never True 09/06/2023 Within the past 12 months,th e food you bought just didn't last and you didn't have enough money to get more: Never True 07/2023 Transportation Answer Date Recorded In the past 12 months, has l ack of transportation kept you from medical appts, meetings, work or from getting things needed for daily living? No 09/06/2023 Utilities Answer Date Recorded In the past 12 months, has t he electric, gas, oil or water company threatened to shut off services in your home? No 09/06/2023 Depression Answer Date Recorded Patient Health Questionnaire-2 [...] Description 09/21/2025 10:15 AM EDT Office Visit [facility] MEDICINE [address] [place] [address] Zach Lewis MD [address] [place] [address] documented as of this encounter Visit Diagnoses Diagnosis Pain Generalized pain documented in this encounter Care Teams Plant Equipment Engineer Relationship Specialty Start Date End Date Jessy Randall ANP [address] [place] [address] PCP - General Family Medicine 07/21/21 documented as of this encounter
[2025-08-03 11:19] LABS: MANUAL DIFF FLAG NO
[2025-08-03 11:25] LABS: Hematocrit 35.4 % (37.0-47.0); Hemoglobin 11.8 g/dl (12.0-16.0); Imm Gran Abs Auto 0.02 X10*3/uL (0.00-0.03); Imm Gran Pct Auto 0.3 % (0.0-0.4); Lymphocytes Absolute Auto 1.9 X10*3/uL (1.2-4.9); Mean Corpuscular HGB Conc 33.3 g/dl (31.0-35.0); Mean Corpuscular Hemoglobin 32.7 pg (27.0-33.0); Mean Corpuscular Volume 98.1 fL (80.0-98.0); NRBC Abs Auto 0.000 X10*3/uL (0.0-0.012); NRBC Pct Auto 0.0 /100WBC (0.0-0.2); Platelet Count 225 X10*3/uL (160-400); Red Blood Count 3.61 X10*6/uL (4.20-5.50); White Blood Count 6.3 X10*3/uL (4.8-10.8)
== END 2025-08-03 10:02 | disposition home or self-care (01) ==
LOC: HO.HHCL 10:01
PROVIDERS: PCP Nurse Practitioner Primary Care; Visit Provider Nurse Practitioner Primary Care
DX: R25.2 Cramp and spasm (principal)
CPT/HCPCS: 36415; 85025

== ENCOUNTER 2025-09-05 14:20 | Outpatient (REF) | payer OTHER, SELFPAY | END 2025-09-05 14:21 | disposition home or self-care (01) | LOC: HO.MAMMO 14:20 | PROVIDERS: PCP Nurse Practitioner Primary Care; Visit Provider Nurse Practitioner Primary Care | DX: Z12.31 Encounter for screening mammogram for malignant neoplasm of breast (principal) | CPT/HCPCS: 77063; 77067 ==

== ENCOUNTER → 2025-09-05 14:45 | Outpatient (BNV) | payer OTHER, SELFPAY | PROVIDERS: PCP Nurse Practitioner Primary Care; Visit Provider Internal Medicine | DX: Z12.31 Encounter for screening mammogram for malignant neoplasm of breast (principal) | CPT/HCPCS: 77063; 77067 ==

== ENCOUNTER 2025-09-28 10:00 | Outpatient (REF) | payer OTHER, SELFPAY ==
--- OUTSIDE RECORDS SUMMARY | 2025-09-28 11:00 | XMS_ITS | Encounter Summary ---
Author Organization [employer] Address [address] [facility] 7t [place] [address] Care Team Providers Care Clinical Informatics Educator Name Role Phone Tonia Jessy WALLS Primary Care Provider [phone] Reason for Visit * Reason Comments OLYA F/U Encounter Details Date Type Department Care Team ([facility] st Contact Info) Description 09/28/2025 11:00 AM EDT Office Visit [facility] MEDICINE 230 [place] [address] Star Trejo MD 230 [place] [address] Arrived Social History Tobacco Use Types Packs/Day Years [...] is your housing situation today? I have lesjairo whitley 01/08/[address] you [...] Care Team (Late st Contact Info) Description 10/11/2025 2:30 PM EST Office Visit [facility] MEDICINE [address] [place] [address] Jessy Randall ANP [address] [place] [address] 10/19/2025 11:00 AM EST Office Visit [address] [address] Star Trejo MD [address] [place] [address] documented as of this encounter Visit Diagnoses Not on filedocumented in this encounter Additional Health Concerns Assessment Noted Time PHQ-9 Depression Total Score: 0 07/09/20 25 2:17 PM EDT documented as of this encounter Care Teams Clinical Informatics Educator Relationship Specialty Start Date End Date Jessy Randall ANP [address] [place] [address] PCP - General Family Medicine 07/21/21 documented as of this encounter
--- OUTSIDE RECORDS SUMMARY | 2025-09-28 11:15 | XMS_ITS | Encounter Summary ---
Author Organization [employer] Address [address] [facility] 7t [place] [address] Care Team Providers Care Electrician'S Helper Name Role Phone Jessy Randall Primary Care Provider [phone] Reason for Visit * Reason Comments Med Refill Encounter Details Date Type Department Care Team ([facility] Contact Info) Description 11/19/2022 Refill [facility] MEDICINE [address] [place] [address] Jessy Randall ANP 230 [place] [address] Anxiety disorder, unspecified Social History Tobacco Use [...] Upcoming Encounters Date Type Department Care Team ([facility] Contact Info) Description 10/11/2025 2:30 PM EST Office Visit [facility] MEDICINE [address] [place] [address] Jessy Randall ANP [address] [place] [address] 10/19/2025 11:00 AM EST Office Visit [facility] MEDICINE [address] [place] [address] Star Trejo MD [address] [place] [address] documented as of this encounter Visit Diagnoses Diagnosis Anxiety disorder, unspecified documented in this encounter Care Teams Electrician'S Helper Relationship Specialty Start Date End Date Jessy Randall ANP [address] [place] [address] PCP - General Family Medicine 07/21/21 documented as of this encounter
--- OUTSIDE RECORDS SUMMARY | 2025-09-28 11:15 | XMS_ITS | Encounter Summary ---
Author Organization [email or web address] Address [address] [facility] [address] 7t [place] [address] Care Team Providers Care Fund Accountant Name Role Phone Jessy Randall Primary Care Provider [phone] Reason for Visit * Reason Onset Date Comments Referral 11/25/2023 Encounter Details Date Type Department Care Team ([facility] st Contact Info) Description 11/25/2023 Telephone [facility] MEDICINE [address] [place], [place] [phone] Jessy Randall ANP 230 [place] [address] Referral Social History Tobacco Use Types Packs/Day [...] Description 10/11/2025 2:30 PM EST Office Visit [facility] MEDICINE [address] [place] [address] Jessy Randall ANP [address] [place] [address] 10/19/2025 11:00 AM EST Office Visit [facility] MEDICINE [address] [place] [address] Star Trejo MD [address] [place] [address] documented as of this encounter Visit Diagnoses Not on filedocumented in this encounter Care Teams Fund Accountant Relationship Specialty Start Date End Date Jessy Randall ANP [address] [place] [address] PCP - General Family Medicine 07/21/21 documented as of this encounter
--- OUTSIDE RECORDS SUMMARY | 2025-09-28 11:15 | XMS_ITS | Encounter Summary ---
Author Organization [employer] Address [address] [facility] [address] 7t [place] [address] Care Team Providers Care Supervisor Compounding And Finishing Name Role Phone Jessy Randall KAVITA Primary Care Provider [phone] Encounter Details Date Type Department Care Team (Latest Contact Info) Description 09/28/2025 Travel Social History Tobacco Use Types Packs/Day Years [...] t he electric, gas, oil or water [employer] threatened to shut off services in your [...] Description 10/11/2025 2:30 PM EST Office Visit [facility] MEDICINE [address] [place] [address] Jessy Randall ANP [address] [place] [address] 10/19/2025 11:00 AM EST Office Visit [facility] MEDICINE [address] [place] [address] Star Trejo MD [address] [place] [address] documented as of this encounter Visit Diagnoses Not on filedocumented in this encounter Additional Health Concerns Assessment Noted Time PHQ-9 Depression Total Score: 0 07/09/20 25 2:17 PM EDT documented as of this encounter Care Teams Supervisor Compounding And Finishing Relationship Specialty Start Date End Date Jessy Randall ANP [address] [place] [address] PCP - General Family Medicine 07/21/21 documented as of this encounter
--- OUTSIDE RECORDS SUMMARY | 2025-09-28 11:15 | XMS_ITS | Encounter Summary ---
Author Organization [employer] Address [address] [facility] [address] 7t [place] [address] Care Team Providers Care Bridal Sales Consultant Name Role Phone Jessy Randall Primary Care Provider [phone] Reason for Visit * Reason Onset Date Comments error 11/18/2023 Encounter Details Date Type Department Care Team ([facility] st Contact Info) Description 11/18/2023 Telephone [facility] MEDICINE [address] [place], [place] [phone] Jessy Randall ANP 230 [place] [address] error Social History Tobacco Use Types Packs/Day [...] Description 10/11/2025 2:30 PM EST Office Visit [facility] MEDICINE [address] [place] [address] Jessy Randall ANP [address] [place] [address] 10/19/2025 11:00 AM EST Office Visit [facility] MEDICINE [address] [place] [phone] Star Trejo MD [address] [place] [address] documented as of this encounter Visit Diagnoses Not on filedocumented in this encounter Care Teams Bridal Sales Consultant Relationship Specialty Start Date End Date Jessy Randall ANP [address] [place] [phone] PCP - General Family Medicine 07/21/21 documented as of this encounter
--- OUTSIDE RECORDS SUMMARY | 2025-09-28 11:15 | XMS_ITS | Encounter Summary ---
Author Organization [employer] Address [address] [facility] 7t [place] [address] Care Team Providers Care Web Programmer Name Role Phone Jessy Randall Primary Care Provider [phone] Reason for Visit * Reason Onset Date Comments Med Change Request 05/04/2024 Encounter Details Date Type Department Care Team ([facility] st Contact Info) Description 05/04/2024 Telephone [facility] MEDICINE 230 [place] [address] Jessy Randall ANP 230 [place] [address] Med Change Request Social History Tobacco Use [...] Description 10/11/2025 2:30 PM EST Office Visit [facility] MEDICINE [address] [place] [address] Jessy Randall ANP 230 [place] [address] 10/19/2025 11:00 AM EST Office Visit [facility] MEDICINE [address] [place] [phone] Star Trejo MD 230 [place] [address] documented as of this encounter Visit Diagnoses Not on filedocumented in this encounter Care Teams Web Programmer Relationship Specialty Start Date End Date Jessy Randall ANP [address] [place] [address] PCP - General Family Medicine 07/21/21 documented as of this encounter
--- OUTSIDE RECORDS SUMMARY | 2025-09-28 11:15 | XMS_ITS | Encounter Summary ---
Author Organization [employer] Address [address] [facility] [address] 7t [place] [address] Care Team Providers Care Dinkey Motor Operator Name Role Phone Tonia Jessy WALLS Primary Care Provider [phone] Reason for Visit * Reason Comments Recovery Supports Encounter Details Date Type Department Care Team (Late st Contact Info) Description 09/25/2025 Patient Outreach [facility] MEDICINE 230 [place] [address] Archie Dempsey Recovery Supports Social History Tobacco Use Types [...] as of this encounter Progress Notes * Archie Dempsey - 09/25/2025 3:19 PM EDT I met with Rachel polanco. Setting: in person at [facility] Recovery Wellness Goals worked on: Physical Health/Mental Health Social Stability Spiritual Wellness Action taken/next steps: Attended recovery support group Contingency management Additional comments: Archie Dempsey documented in this encounter Plan of Treatment Upcoming Encounters Date Type Department Care Team (Late st Contact Info) Description 10/11/2025 2:30 PM EST Office Visit [address] [address] Jessy Randall ANP [address] [place] [address] 10/19/2025 11:00 AM EST Office Visit [address] [address] Star Trejo MD [address] [place] [address] documented as of this encounter Visit Diagnoses Not on filedocumented in this encounter Additional Health Concerns Assessment Noted Time PHQ-9 Depression Total Score: 0 07/09/20 25 2:17 PM EDT documented as of this encounter Care Teams Dinkey Motor Operator Relationship Specialty Start Date End Date Jessy Randall ANP [address] [place] [address] PCP - General Family Medicine 07/21/21 documented as of this encounter
--- OUTSIDE RECORDS SUMMARY | 2025-09-28 11:15 | XMS_ITS | Encounter Summary ---
Author Organization [employer] Address [address] [facility] 7t [place] [address] Care Team Providers Care Hospitalist Nocturnist Physician Name Role Phone Jessy Randall Primary Care Provider [phone] Encounter Details Date Type Department Care Team (Late st Contact Info) Description 01/04/[address] [phone] Marlene Holley LPN Social History Tobacco Use [...] Description 10/11/2025 2:30 PM EST Office Visit [facility] MEDICINE [address] [place] [address] [phone] Jessy Randall ANP [address] [place] [address] [phone] 10/19/2025 11:00 AM EST Office Visit [address] [phone] Star Trejo MD [address] [place] [phone] documented as of this encounter Visit Diagnoses Not on filedocumented in this encounter Care Teams Hospitalist Nocturnist Physician Relationship Specialty Start Date End Date Jessy Randall ANP 230 [facility] [place] [address] PCP - General Family Medicine 07/21/21 documented as of this encounter
--- OUTSIDE RECORDS SUMMARY | 2025-09-28 11:15 | XMS_ITS | Encounter Summary ---
Author Organization [employer] Address [address] [facility] 7[place] [address] Care Team Providers Care Manager Of Software Name Role Phone Jessy Randall Primary Care Provider [phone] Encounter Details Date Type Department Care Team (Late st Contact Info) Description 11/25/2022 Orders Only [facility] 230 [place], [place] [phone] Alisa Dolan RN Social History Tobacco Use Types Packs/Day Years [...] Description 10/11/2025 2:30 PM EST Office Visit [facility] MEDICINE 230 [place], [place] [phone] Jessy Randall ANP 230 [place], [place] [phone] 10/19/2025 11:00 AM EST Office Visit [facility] MEDICINE 230 [place] [address] Star Trejo MD 230 [place] [address] documented as of this encounter Visit Diagnoses Not on filedocumented in this encounter Care Teams Manager Of Software Relationship Specialty Start Date End Date Jessy Randall ANP [address] [place] [address] PCP - General Family Medicine 07/21/21 documented as of this encounter
--- OUTSIDE RECORDS SUMMARY | 2025-09-28 11:15 | XMS_ITS | Encounter Summary ---
Author Organization [employer] Address [address] [facility] 7t [place] [address] Care Team Providers Care Homicide Squad Commanding Officer Name Role Phone Jessy Randall Primary Care Provider [phone] Reason for Visit * Reason Comments Med Refill Encounter Details Date Type Department Care Team ([facility] Contact Info) Description 11/25/2022 Refill [facility] MEDICINE [address] [place] [phone] Jessy Randall ANP 230 [place] [address] Anxiety disorder, unspecified Social History Tobacco Use [...] Upcoming Encounters Date Type Department Care Team ([facility] Contact Info) Description 10/11/2025 2:30 PM EST Office Visit [facility] MEDICINE [address] [place] [address] Jessy Randall ANP [address] [place] [address] 10/19/2025 11:00 AM EST Office Visit [facility] MEDICINE [address] [place] [address] Star Trejo MD [address] [place] [address] documented as of this encounter Visit Diagnoses Diagnosis Anxiety disorder, unspecified documented in this encounter Care Teams Homicide Squad Commanding Officer Relationship Specialty Start Date End Date Jessy Randall ANP [address] [place] [address] PCP - General Family Medicine 07/21/21 documented as of this encounter
--- OUTSIDE RECORDS SUMMARY | 2025-09-28 11:15 | XMS_ITS | Encounter Summary ---
Author Organization [employer] Address [address] [facility] 7t [place] [address] Care Team Providers Care Medical Doctor Name Role Phone Jessy Randall Primary Care Provider [phone] Reason for Visit * Reason Onset Date Comments Appointment Request 09/07/2025 Encounter Details Date Type Department Care Team ([facility] st Contact Info) Description 09/07/2025 Telephone [facility] MEDICINE 230 [place] [address] Jessy Randall ANP 230 [place] [address] Appointment Request Social History Tobacco Use Types Packs/Day [...] encounter Miscellaneous Notes * Telephone Encounter - Yoko Crystal - 09/07/2025 8:36 AM EDT Tc from pt requesting to reschedule derm apt that was scheduled today Contact pt at [phone] (niuean) documented in this encounter Plan of Treatment Upcoming Encounters Date Type Department Care Team (Late st Contact Info) Description 10/11/2025 2:30 PM EST Office Visit [facility] MEDICINE [address] [place] [address] Jessy Randall ANP 230 [place] [address] 10/19/2025 11:00 AM EST Office Visit [facility] MEDICINE [address] [place] [address] Star Trejo MD [address] [place] [address] documented as of this encounter Visit Diagnoses Not on filedocumented in this encounter Additional Health Concerns Assessment Noted Time PHQ-9 Depression Total Score: 0 08/11/20 25 2:17 PM EDT documented as of this encounter Care Teams Medical Doctor Relationship Specialty Start Date End Date Jessy Randall ANP 230 [place] [address] PCP - General Family Medicine 07/21/21 documented as of this encounter
--- OUTSIDE RECORDS SUMMARY | 2025-09-28 11:15 | XMS_ITS | Encounter Summary ---
Author Organization [employer] Address [address] [facility] [address] 7t [place] [address] Care Team Providers Care Envelope Machine Adjuster Name Role Phone Jessy Randall Primary Care Provider [phone] Reason for Visit * Reason Comments Med Refill Encounter Details Date Type Department Care Team ([facility] st Contact Info) Description 04/18/2024 Refill [facility] [address] [place], [place] [phone] Jessy Randall ANP 230 [place] [address] Pain Social History Tobacco Use Types Packs/Day [...] Description 10/11/2025 2:30 PM EST Office Visit [facility] MEDICINE [address] [place] [phone] Jessy Randall ANP [address] [place] [address] 10/19/2025 11:00 AM EST Office Visit [facility]INE [address] [place] [phone] Star Trejo MD [address] [place] [address] documented as of this encounter Visit Diagnoses Diagnosis Pain Generalized pain documented in this encounter Care Teams Envelope Machine Adjuster Relationship Specialty Start Date End Date Jessy Randall ANP [address] [place] [address] PCP - General Family Medicine 07/21/21 documented as of this encounter
--- OUTSIDE RECORDS SUMMARY | 2025-09-28 11:15 | XMS_ITS | Encounter Summary ---
Author Organization [employer] Address [address] [facility] 7t [place] [address] Care Team Providers Care Assistant Elementary Teacher Name Role Phone Jessy Randall Primary Care Provider [phone] Reason for Visit * Reason Comments Med Refill Encounter Details Date Type Department Care Team ([facility] st Contact Info) Description 10/15/2023 Refill [facility] MEDICINE 230 [place] [address] Name, MD Osvaldo 230 [place] [address] Social History Tobacco Use Types Packs/Day Years [...] Description 10/11/2025 2:30 PM EST Office Visit [facility] MEDICINE [address] [place] [phone] Jessy Randall ANP [address] [place] [address] 10/19/2025 11:00 AM EST Office Visit [facility] MEDICINE [address] [place] [address] Star Trejo MD [address] [place] [address] documented as of this encounter Visit Diagnoses Not on filedocumented in this encounter Care Teams Assistant Elementary Teacher Relationship Specialty Start Date End Date Jessy Randall ANP [address] [place] [address] PCP - General Family Medicine 07/21/21 documented as of this encounter
--- OUTSIDE RECORDS SUMMARY | 2025-09-28 11:15 | XMS_ITS | Clinical Summary ---
Author Organization [employer] Address [address] [facility] [address] [place] [address] Care Team Providers Care Materials Scientist Name Role Phone Tawana Castle KAVITA Primary Care Provider [phone] Allergies Active Allergy Reactions Criticality Noted Date [...] tabletIndications :Type 2 diabetes mellitus with hyperlipidemia (HCC) TAKE 1 TABLET BY MOUTH ONCE DAILY [...] or split. 60 tablet 11 025 Active busPIRone (Buspar) 15 MG tabletIndications [...] auto-injectorIndi cations:Type 2 diabetes mellitus with hyperlipidemia (HCC) Inject 3 mg under the skin 1 [...] Active nicotine polacrilex (Commit) 2 MG lozengeIndication s:Nicotine dependence, unspecified, uncomplicated DISSOLVE 1 LOZENGE BY MOUTH EVERY 2 HOURS NEEDED (para reemplazar un cigarrillo) 72 lozenge 1 025 Active topiramate (Topamax) 100 MG tabletIndications :Cocaine use disorder (CMS/HCC) (HCC) Take 1 tablet (100 mg) by mouth 2 times daily. 60 tablet 2 025 2025 Active nicotine (Nicoderm, Step 2) 14 MG/24HR patchIndications: Nicotine dependence, unspecified, uncomplicated APPLY 1 PATCH TOPICALLY TO THE SKIN IN THE MORNING *DO NOT SMOKE WHILE USING PATCH* 28 patch 1 025 Active topiramate 50 MG tabletIndications :Chronic migraine without aura without status migrainosus, not intractable Take 1 tablet (50 mg) by mouth Once daily. 90 tablet 1 025 2024 Discontinued nicotine (Nicoderm, Step 2) 14 MG/24HR patch APPLY 1 PATCH TOPICALLY TO THE SKIN IN THE MORNING *DO NOT SMOKE WHILE USING PATCH* 28 patch 1 07/26/2 025 2024 Discontinued Active Problems Problem Noted Date Diagnosed Date [...] Health Integration Plan Internal Follow up with [facility] Patient Self Plan Patient to utilize skills provided in intervention , Patient to reach out to [facility] team as needed, and Patient to follow-up with external team Screening for malignant neoplasm of colon 2023 Overview (02/09/2024): Referred to GI 02/09/24 Chronic pain of right ankle 05/13/2023 Essential hypertension 02/15/2023 Closed right ankle fracture, sequela 02/15/2023 Right leg pain 02/15/2023 Bipolar disorder 11/07/2022 Type 2 diabetes mellitus with hyperlipidemia 08/2022 Hypothyroidism 11/07/2022 Insomnia disorder, with non- sleep disorder mental comorbidity 11/07/2022 Migraine 11/07/2022 Encounters * This document contains information received from the source organization and may not represent a complete record from that organization. Date Type Department Care Team Description 09/28/2025 11:00 AM EDT Office Visit [facility] [address] [place] [address] [phone] Star Trejo MD Arrived 09/28/2025 Travel 09/25/2025 Patient Outreach [facility] [address] [place] [address] [phone] Archie Dempsey Recovery Supports 09/20/2025 Patient Outreach [facility] [address] [place] [address] [phone] Archie Dempsey [facility] 09/19/2025 Refill [facility] [address] [place] [address] 88278 Tawana Castle ANP Nicotine dependence, unspecified, uncomplicated 09/18/2025 Patient Outreach [facility] [address] [place] [address] 79838 Hugo Calhoun [facility] 09/17/2025 Patient Outreach [facility] [address] [place] [address] 42479 Archie Dempsey [facility] 09/17/2025 Telephone [facility] [address] [place] [address] 17138 Tawana Castle ANP 09/13/2025 Refill [facility] [address] [place] [address] 615[address] Tawana Castle ANP Nicotine dependence, unspecified, uncomplicated 09/11/2025 Patient Outreach [facility] [address] [place] [address] [phone] Hugo Calhoun [facility] 09/10/2025 Patient Outreach [facility] [address] [facility] [place] [address] Archie Dempsey Recovery Supports 09/07/2025 Telephone [facility] [address] [facility] [place] [address] Tawana Castle ANP Appointment Request 09/06/2025 Patient Outreach [facility] [address] [facility] [place] [address] Daniel Trevizo Recovery Supports 09/05/2025 Orders Only [facility] [address] [facility] [place] [address] Tawana Castle ANP 09/04/2025 Patient Outreach [facility] [address] [facility] [place] [address] Hugo Calhoun [facility] 09/03/2025 Patient Outreach [facility] [address] [facility] [place] [address] Shan Zheng Recovery Supports 08/31/2025 12:00 PM EDT Office Visit [facility] [address] [facility] [place] [address] Star Trejo MD Cocaine use disorder (CMS/HCC) (HCC) (Primary Dx) 08/31/2025 Travel 08/30/2025 Patient Outreach [facility] [address] [facility] [place] [address] Daniel Trevizo Recovery Supp[facility] 08/28/2025 Patient Outreach [facility] [address] [place] [phone] Hugo Calhoun Recovery [facility] 08/23/2025 Patient Outreach [facility] [address] [facility] [place] [address] Daniel Trevizo Recovery Supports 08/23/2025 Refill [facility] [address] [facility] [place] [address] Tawana Castle, KAVITA Nicotine dependence, unspecified, uncomplicated 08/21/2025 Patient Outreach [facility] [address] [facility] [place] [address] Hugo Calhoun [facility] 08/20/2025 Patient Outreach [facility] [address] [place] [address] Zheng, Shan RC Recovery Supports 08/17/2025 12:00 PM EDT Office Visit [facility] [address] [facility] [place] [address] Star Trejo MD Cocaine use (Primary Dx) 08/17/2025 Travel 08/16/2025 Patient Outreach [facility] [address] [facility] [place] [address] Daniel Trevizo RC Recovery Supports 08/10/2025 Telephone [facility] [address] [facility] [place] [address] Star Trejo MD 08/09/2025 Patient Outreach [facility] [address] [facility] [place] [address] Daniel Trevizo RC Recovery Supports 08/09/2025 Patient Outreach [facility] [address] [facility] [place] [address] Raiza Santacruz RC Recovery Supports 08/09/2025 Patient Outreach [facility] [address] [place] [address] Archie Dempsey RC Recovery Supports 08/08/2025 Telephone [facility] [address] [facility] [place] [address] Tawana Castle ANP 08/07/2025 Telephone [facility] [address] [place] [address] Tawana Castle, KAVITA nov recall 08/07/2025 Patient Outreach [facility] [address] [facility] [place] [address] Hugo Calhoun RC Recovery Supports 07/31/2025 Patient Outreach [facility] [address] [place] [address] Daniel Trevizo RC Recovery Supports 07/26/2025 Refill [facility] [address] [place] [address] Tawana Castle, KAVITA Nicotine dependence, unspecified, uncomplicated 07/24/2025 Telephone [facility] [address] [place] [address] Tawana Castle ANP Telephone call 07/24/2025 Patient Outreach [facility] [address] [place] [address] Daniel Trevizo RC Recovery Supports 07/24/2025 Orders Only [address] [address] Tawana Castle ANP 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) 07/18/[address] [address] Tawana Castle ANP Results 07/18/[address] [address] Tawnaa Castle ANP Hypothyroidism, unspecified type 07/17/2025 Patient Outreach [address] [address] Hugo Calhoun Recovery Supp[facility] 07/17/2025 Refill [facility] [address] [place] [address] Tawana Castle ANP Pain 07/13/2025 Results Follow-Up [address] [address] Tawana Castle ANP TSH W/Reflex to FT4, Hemoglobin A1c, Basic Metabolic Panel 07/12/2025 Results Follow-Up [address] [address] Tawana Castle ANP POCT Glucose, POCT HGB A1C, Culture, Urine, Routine, Additional followed-up results: 3 07/12/2025 Results Follow-Up [address] [address] Tawana Castle ANP T-SPOT .TB, XR Chest 2 Views 07/09/2025 2:00 PM EDT Office Visit [address] [address] Tawana Castle ANP Type 2 diabetes mellitus with hyperlipidemia (CMS/HCC) (CMS/HCC) (Primary Dx); Acute cystitis with hematuria; Routine screening for STI (sexually transmitted infection); Nausea; Acute midline low back pain without sciatica; Onychomycosis; Leg cramping 07/09/2025 Travel 07/09/2025 Refill [facility] [address] [place] [address] Cesia Cooley MD Urinary tract infection without hematuria, site unspecified 07/06/[address] [address] Tawana Castle ANP chart prep 06/29/2025 Patient Outreach [facility] [address] [place] [address] Tawana Castle ANP Pre-visit Planning (Pre-visit planning - LVM ) 06/28/2025 Telephone [facility] [address] [place] [address] Tawana Castle ANP Med Refill from Last 3 Months Immunizations Immunization Administration [...] Description 10/11/2025 2:30 PM EST Office Visit [facility] [address] [place] [address] Tawana Castle ANP [address] [place] [address] 10/19/2025 11:00 AM EST Office Visit [facility] [address] [place] [address] Star Trejo MD [address] [place] [address] Health Maintenance Due Date Last Done Comments CT Colonography 1965 Colonoscopy 1965 FIT 1965 Sigmoidoscopy 1965 Eye Exam 1975 Pap Smear 1986 Cervical Cancer Screening 1995 HPV/Cotest 1995 Diabetes: Foot Exam 06/23/2025 06/23/2024, 06/23/2024, 06/23/2024, Additional history exists Lipid Panel 06/27/2025 06/27/2024, 08/29, 02/17/2023, Additional history exists Influenza Vaccine (#1) 2025 , 08/31/2023, 08/20/2022, Additional history exists RSV Patients and Patients Aged 60 years or older (1 - Risk 60-74 years 1-dose series) 2025 Diabetes: Hemoglobin A1C 01/09/2026 025, 07/09/2025, 01/08/2025, Additional history exists FOBT 02/11/2026 02/11/2025 Alcohol/Substance Use Screening 02/23/2026 02/23/2025 Diabetes: Urine Protein Screening 05/28/2026 05/28/2025, 08/21/2020 Depression Screening 07/09/2026 07/09/2025, 07/09/20 25 Disability Screening 07/09/2026 07/09/2025 SDOH Screening 07/09/2026 07/09/2025 Tobacco Screening 07/24/2026 07/24/2025 Mammogram 09/05/2026 09/05/2025, 1006/2025, 06/26/2024, Additional history exists Colorectal Cancer Screening 02/12/2028 FIT DNA/Cologuard 02/12/2028 02/11/2025 DTaP/Tdap/Td Vaccines (2 - Td or Tdap) 10/10/2031 10/10/2021 Zoster Vaccines Completed 02/15/2023, 03/31/2022 HIV Screening [...] Procedure Name Priority Date/Time Associated Diagnosis Comments BI MAMMOGRAM SCREEN W GREGG W IMPLANTS URIEL Routine 09/05/2025 2:25 PM EDT CBC WITH AUTO DIFFERENTIAL Routine 08/03/2025 10:21 [...] 07/09/2025 1:24 PM EDT Screening for tuberculosis LAB COLOGUARD COLON CANCER SCREEN Routine 02/11/2025 11:00 AM EDT Screening for colon cancer LIPID PANEL, STANDARD Routine 06/27/2024 1:15 PM EDT Type 2 diabetes mellitus without complication, without long-term current use of insulin (CMS/HCC) HEPATITIS C AB W/REFL TO HCV RNA, QN, PCR Routine 02/17/2023 8:40 AM EDT Healthcare maintenance HIV 1/2 ANTIGEN/ANTIBODY, FOURTH GENERATION W/RFL Routine 02/17/2023 8:40 AM EDT Healthcare maintenance ALBUMIN, RANDOM URINE W/CREATININE Routine 08/21/2020 9:49 AM EDT from Last 3 Months or Most Recently Relevant to Health Maintenance Results * BI Mammogram Screen w/ Gregg w/ Implants Uriel (09/05/2025 2:25 PM EDT) Anatomical Region Laterality Modality Mammography 09/05/2025 2:25 PM EDT Narrative 09/14/2025 4:44 PM EDT [facility] [address] [place] [address] Mammography Report Signed Patient: Rachel Myers MR#: M [id number] : 1965 Acct:[id number] Age/Sex: 60 / F ADM Date: 09/05/25 Loc: HO.MAMMO Attending Dr: Tawana Castle NP Ordering Physician: TAWANA CASTLE NP Results: 2Benign Date of Service: 09/05/25 Follow Up: 1 Year From Orig inal Mammogram Procedure(s): MM tomosynthesis screen imp BI Accession Number(s): [id number] cc: TAWANA CASTLE NP Reason For Exam: SCREENING EXAMINATION: MM SCREENING DIGITAL BREAST TOMOSYNTHESIS, BILATERAL CLINICAL INFORMATION: Screening. Asymptomatic. COMPARISON: Mammography: Comparison is made with relevant avialable priors. TECHNIQUE: Digital mammography is performed in craniocaudal and mediolateral oblique views along with computer-aided detection (CAD). Digital breast tomosynthesis is performed in implant-displaced craniocaudal and implant-displaced mediolateral oblique views along with computer-aided detection (CAD). FINDINGS: There are scattered areas of fibroglandular density. Bilateral retropectoral saline implants are stable appearing. There are no significant masses, abnormal calcifications, or other abnormalities. MM/MM tomosynthesis screen imp BI IMPRESSION: There are no significant changes from prior study. ASSESSMENT: BI-RADS Category 2: Benign RECOMMENDATION: Routine annual mammography screening. 1 year F/U This patient's information was entered into a reminder system with a target due date for their next mammogram. Electronically signed by: Sridevi Anderson DO 09/14/2025 04:41 PM EDT Dictated By: Sridevi Anderson DO Signed By: <Electronically signed by Sridevi Anderson DO in OV> 09/14/25 1641 DD/ 1425 TD/TT: 09/05/25 1445 Residential Green Building Designer: Procedure Note Donotuseinterpreter, Image - 09/14/2025 [facility] [address] [place] [address] Mammography Report Signed Patient: Nakita Myers#: M [id number] : 1965Acct:[id number] Age/Sex: 60 / FADM Date: 09/05/25 Loc: HO.MAMMO Attending Dr: Tawana Castle CHECKING CLERK Ordering Physician: TAWANA CASTLE NPResults: 2Benign Date of Service: 09/05/25Follow Up: 1 Year From Orig inal Mammogram Procedure(s): MM tomosynthesis screen imp BI Accession Number(s): [id number] cc: TAWANA CASTLE NP Reason For Exam: SCREENING EXAMINATION: MM SCREENING DIGITAL BREAST TOMOSYNTHESIS, BILATERAL CLINICAL INFORMATION: Screening. Asymptomatic. COMPARISON: Mammography: Comparison is made with relevant avialable priors. TECHNIQUE: Digital mammography is performed in craniocaudal and mediolateral oblique views along with computer-aided detection (CAD). Digital breast tomosynthesis is performed in implant-displaced craniocaudal and implant-displaced mediolateral oblique views along with computer-aided detection (CAD). FINDINGS: There are scattered areas of fibroglandular density. Bilateral retropectoral saline implants are stable appearing. There are no significant masses, abnormal calcifications, or other abnormalities. MM/MM tomosynthesis screen imp BI IMPRESSION: There are no significant changes from prior study. ASSESSMENT: BI-RADS Category 2: Benign RECOMMENDATION: Routine annual mammography screening. 1 year F/U This patient's information was entered into a reminder system with a target due date for their next mammogram. Electronically signed by: Sridevi Anderson DO 09/14/2025 04:41 PM EDT Dictated By: Sridevi Anderson DO Signed By: <Electronically signed by Sridevi Anderson DO in OV> 09/14/25 1641 DD/ 1425 TD/TT: 09/05/25 1445 Residential Green Building Designer: Tawana Castle ANP IMG BI PROCEDURES Final Result * (ABNORMAL) CBC auto differential (08/03/2025 10:21 AM EDT) White Blood Count 6.3 4.8 - 10.8 X10*3/uL [facility] Red Blood Count 3.61(L) 4.20 - 5.50 X10*6/uL [facility] Hemoglobin 11.8(L) 12.0 - 16.0 g/dl [facility] Hematocrit 35.4(L) 37.0 - 47.0 % [facility] Mean Corpuscular Volume 98.1(H) 80.0 - 98.0 fL [facility] Mean Corpuscular Hemoglobin 32.7 27.0 - 33.0 pg [facility] Mean Corpuscular HGB Conc 33.3 31.0 - 35.0 g/dl [facility] Red Cell Distribution Width 13.6 11.0 - 16.0 % [facility] Platelet Count 225 160 - 400 X10*3/uL [facility] Mean Platelet Volume 12.5(H) 9.4 - 12.3 fL [facility] Neutrophils Percent Auto 59.1 45 - 73 % [facility] Imm Gran Pct Auto 0.3 0.0 - 0.4 % [facility] Lymphocytes Percent Auto 29.7 20 - 40 % [facility] Monocytes Percent Auto 8.1 2 - 11 % [facility] Eosinophils Percent Auto 2.2 0 - 4 % [facility] Basophils Percent Auto 0.6 0 - 2 % [facility] NRBC Pct Auto 0.0 0.0 - 0.2 /100WBC [facility] Neutrophils Absolute Auto 3.7 2.0 - 8.3 x10*3/uL [facility] Imm Gran Abs Auto 0.02 0.00 - 0.03 X10*3/uL [facility] Lymphocytes Absolute Auto 1.9 1.2 - 4.9 X10*3/uL [facility] Monocytes Absolute Auto 0.5 0.1 - 1.2 X10*3/uL [facility] Eosinophils Absolute Auto 0.1 0.0 - 0.4 X10*3/uL [facility] Basophils Absolute Auto 0.0 0.0 - 0.2 X10*3/uL [facility] NRBC Abs Auto 0.000 0.0 - 0.012 X10*3/uL [facility] Blood Venous blood specimen / Unknown 08/03/2025 10:21 AM EDT 08/03/2025 11:13 AM EDT Tawana Castle ANP LAB BLOOD ORDERABLES Final Resul t [facility] [address] [place] [phone] * XR Chest 2 Views (07/13/2025 12:49 PM EDT) Anatomical Region Laterality Modality Chest Radiographic Catherine ging 07/13/2025 12:4 9 PM EDT Narrative 07/13/2025 2:06 PM EDT [address] [address] XRay Report Signed Patient: Rachel Myers MR#: M [id number] : 1965 Acct:[id number] Age/Sex: 59 / F ADM Date: 07/13/25 Loc: HO.HHCX Attending Dr: Tawana Castle NP Ordering Physician: TAWANA CASTLE NP Date of Service: 07/13/25 Procedure(s): XR chest 2V Accession Number(s): [id number] cc: TAWANA CASTLE NP EXAMINATION: XR CHEST [...] 07/13/25 1404 DD/ 1249 TD/TT: 07/13/25 1300 Residential Green Building Designer: Procedure Note Donotuseinterpreter, Image - 07/13/2025 [facility] [address] [place] [address] XRay Report Signed Patient: Nakita Myers#: M [id number] : 1965Acct:[id number] Age/Sex: 59 / FADM Date: 07/13/25 Loc: HO.HHCX Attending Dr: Tawana Castle CHECKING CLERK Ordering Physician: TAWANA CASTLE NP Date of Service: 07/13/25 Procedure(s): XR chest 2V Accession Number(s): [id number] cc: TAWANA CASTLE NP EXAMINATION: XR CHEST [...] 07/13/25 1404 DD/ 1249 TD/TT: 07/13/25 1300 Residential Green Building Designer: Tawana Castle ANP IMG XR PROCEDURES Final Result * Chlamydia/N. Gonorrhoeae RNA, TMA, Vagina (07/09/2025 2:46 PM EDT) CT PCR NOT DETECTED Not Detect. [facility] Comment:A not detected test result does [...] psychologicalconsequences. NG PCR NOT DETECTED Not Detect. [facility] Comment:A not detected test result does [...] 2:46 PM EDT 07/09/2025 4:42 PM EDT [facility] MICROBIOLOGY - GENERAL ORDER SUNDAR Final Result [facility] [address] [place] [phone] * Culture, Urine, Routine (07/09/2025 2:46 PM EDT) Urine Urine specimen obtained by clean catch procedure / Unknown 07/09/2025 2:46 PM EDT 07/09/2025 4:42 PM EDT Comment:UACC Narrative [facility] - 07/12/2025 1:29 PM EDT Escherichia [...] Specimen Source: Urine clean catch Tawana Castle [facility] MICROBIOLOGY - GENERAL ORDER SUNDAR Final Result [facility] [address] [place] [address] [phone] * (ABNORMAL) POCT Urinalysis (07/09/2025 2:20 PM EDT) Color, UA Yellow Clarity, UA Clear Glucose, UA Negative Bilirubin, UA Negative Ketones, UA Negative Spec Grav, UA 1.015 Blood, UA Positive(A) Negative, None Detected pH, UA 6.5 Protein, UA Negative Urobilinogen, UA 0.2 Leukocytes, UA Many(A) Negative, Rare, Trace Nitrite, UA Positive(A) Negative, None Detected Appearance, UA clear QC Media Lot # [id number] Lot# Expiration Date ,026 Urine 07/09/2025 2:20 PM EDT us Tawana Castle [facility] POINT OF CARE TEST ENTER/EDIT OR DERABLES Final Result * POCT HGB A1C (07/09/2025 2:18 PM EDT) Hemoglobin A1C 5.6 4.0 - 5.7 % QC Media Lot # [id number] Lot# Expiration Date , Blood 07/09/2025 2:18 PM EDT us Tawana Castle [facility] POINT OF CARE TEST ENTER/EDIT OR DERABLES Final Result * POCT Glucose (07/09/2025 2:18 PM EDT) Pathologist [facility] Glucose Blood, POC 111 60 - 200 mg/dL QC Media Lot # [id number] Lot# Expiration Date [id number] Blood Capillary blood specimen / Unknown 07/09/2025 2:18 PM EDT us Tawana Castle ANP POINT OF CARE TEST ENTER/EDIT OR DERABLES Final Result * TSH W/Reflex to FT4 (07/09/2025 1:34 PM EDT) [facility] TSH reflex Free T4 1.10 0.32 - 4.0 uIU/mL [facility] Blood Venous blood specimen / Unknown 07/09/2025 1:34 PM EDT 07/09/2025 4:04 PM EDT us Tawana Castle ANP LAB BLOOD ORDERABLES Final Resul t [facility] [address] [place] [phone] * Hemoglobin A1c (07/09/2025 1:34 PM EDT) [facility] Hemoglobin A1c 5.4 <6.0 % [facility] Comment:Hemoglobin A1C Refer ence Range Adults: 4.8 - 6.0 % Non diabetic: < 6.0 % Goal: < 7.0 %Additional Action Suggested: > 8.0 %Note: Hemoglobin A1c results are invalid for patients with abnormal amounts of HbF. Blood transfusions may impact the HbA1c concentration in the patient sample. Estimated Average Glucose 108 mg/dL [facility] Comment:eAG = Estimated ave rage glucose which is %A1C expressed asaverage glucose, using the formula of the [id number] Glucose study (ADAG), Diabetes Care, Vol.31,#8,Jun. 2007 Blood Venous blood specimen / Unknown 07/09/2025 1:34 PM EDT 07/09/2025 4:04 PM EDT us Tawana Castle ANP LAB BLOOD ORDERABLES Final Resul t Performing Organization Address [facility] Co de Phone Number [facility] [address] [place] [phone] * (ABNORMAL) Basic Metabolic Panel (07/09/2025 1:34 PM EDT) Sodium 138 135 - 145 mmol/L [facility] Potassium 4.7 3.3 - 5.1 mmol/L [facility] Chloride 104 96 - 108 mmol/L [facility] Carbon Dioxide 26 22 - 29 mmol/L [facility] Anion Gap 13 12 - 20 [facility] Urea Nitrogen (BUN) 20(H) 9 - 16 mg/dL [facility] Creatinine, Serum 0.89 0.5 - 1.4 mg/dL [facility] Estimated Glomerular Filt Rate >60 [facility] Comment:Chronic Kidney Disea se: Estimated GFR < 60 mL/min/1.00f1Antgng Kidney Disease: Estimated GFR < 15 mL/min/1.73m2 Glucose 91 60 - 115 mg/dL [facility] Calcium 9.3 8.4 - 10.2 mg/dL [facility] Blood Venous blood specimen / Unknown 07/09/2025 1:34 PM EDT 07/09/2025 4:04 PM EDT Tawana Castle ANP LAB BLOOD ORDERABLES Final Resul t Performing Organization Address [facility] Co de Phone Number [facility] [address] [place] [phone] * (ABNORMAL) T-SPOT??.TB (07/09/2025 1:24 PM EDT) T Spot TB Positive( A) Negative [facility] Comment: Diagnosing or excluding tuberculosis (TB) [...] as aquantitative test. TS PANEL A 6 [facility] TS PANEL B 11 [facility] Negative Control Passed [facility] Positive Control Passed [facility] Comment:For additional infor salvador, please refer tohttp://education.Neovasc/faq/EMZ549(This link is being provided for informational/educational purposes only.)THIS TEST WAS PERFORMED AT:[employer] [place] [address]LERLAIILYNETTE MORAES MD,PHD 07/09/2025 1:24 PM EDT 07/09/2025 4:04 PM EDT [facility] LAB BLOOD ORDERABLES Final Resul t [facility] [address], [place] [phone] * (ABNORMAL) Cologuard?? colon cancer screening (02/11/2025 11:00 AM EDT) Cologuard Result Positive( A) Negative 02/16/2025 11:55 PM EDT [employer] (CLIA #:[id number]) Comment: POSITIVE TEST RESULT. A positive Cologuard [...] screened with both Cologuard and colonoscopy. (Julissa Starks. et al, N Engl J Med 2014;370(14):8757-1119.) Cologuard may produce a false negative or false positive result (no colorectal cancer or precancerous polyp present at colonoscopy follow up). A negative Cologuard test result does not guarantee the absence of CRC or advanced adenoma (pre-cancer). The current Cologuard screening interval is every 3 years. ([place] Cancer Society and [place] Multi-Society Task Force). Cologuard performance data in a 10,000 patient pivotal study using colonoscopy as the reference method can be accessed at the following location: www.Novapost.com/results. Additional description of the Cologuard test process, warnings and precautions can be found at www.cologuard.com. Stool specimen (specimen) 02/11/2025 11:00 AM EDT 02/13/2025 11:55 AM EDT us Tawana Castle ANP LAB MOLECULAR DIAGNOSTICS ORDERA BLES Final Result Performing Organization Address [facility] Co de Phone Number [employer] (CLIA #:[id number]) [address] [place] [address], * Lipid Panel, Standard (06/27/2024 1:15 PM EDT) Triglycerides 94 <150 mg/dL [facility] Comment:Desirable Triglyceri de: less than 150 mg/dLBorderline High Triglyceride 150-199 mg/dLHigh Triglyceride: 200-499 mg/dLVery High Triglyceride: greater than or equal to 5OO mg/dL Cholesterol 153 <200 mg/dL [facility] Comment:Desirable Cholestero l: less than 200 mg/dLBorderline High Cholesterol: 200-239 mg/dLHigh Cholesterol: greater than 239 mg/dL LDL Cholesterol Calculated 84 <100 mg/dL [facility] Comment:Desirable LDL: less than 100 mg/dLNear Optimal/Above Optimal LDL: 110- 129 mg/dLBorderline High LDL: 130-159 mg/dLHigh LDL: 160-189 mg/dLVery High LDL: greater than or equal to 190 mg/dL HDL Cholesterol 51 >40 mg/dL [facility] Comment:Desirable HDL: great er than 40 mg/dL Note: This HDL assay may give artificially low results in patients with liver disease. Blood Venous blood specimen / Unknown 06/27/2024 1:15 PM EDT 06/27/2024 4:50 PM EDT Tawana Castle [facility] BLOOD ORDERABLES Final Resul t Performing Organization Address [facility]/ZIP Co de Phone Number [facility] [address] [place] [phone] * Hepatitis C Antibody with Reflex to HCV, RNA, Quantitative, Real-Time PCR (02/17/2023 8:40 AM EDT) Hepatitis C Antibody NON-REACT MEGAN NON-REACT MEGAN [employer] Index 0.04 <1.00 [employer] [place] [employer] Comment: HCV antibody was non-reactive. There is no laboratory evidence of HCV infection. In most cases, no further action is required. However, if recent HCV exposure is suspected, a test for HCV RNA (test code 49695) is suggested. For additional information please refer to http://ShareTracker.Neovasc/faq/XNE24a6 (This link is being provided for informational/ educational purposes only.) Blood Venous blood specimen / Unknown 02/17/2023 8:40 AM EDT 02/17/2023 8:41 AM EDT Narrative [facility] - 02/18/2023 10:35 AM EDT FASTING:YES FASTING: YES [facility] LAB BLOOD ORDERABLES Final Resul t [facility] [address] [place] [address] [employer] [address] [place] [address] * HIV-1/2 Antigen and Antibodies, Fourth Generation, with Reflexes (02/17/2023 8:40 AM EDT) Pathologist [facility] HIV Antigen/Antibody, 4th Generation NON-REAC TIVE NON-REAC TIVE [facility] [place] [employer] [facility] Comment: HIV-1 antigen and HIV-1/HIV-2 antibodies [...] purpose. For additional information please refer to http://ShareTracker.eventuosity.Skytide/faq/XUF558 (This link is being provided for informational/ educational purposes only.) The performance of this assay has not been clinically validated in patients less than 2 years old. Blood Venous blood specimen / Unknown 02/17/2023 8:40 AM EDT 02/17/2023 8:41 AM EDT Narrative [facility] - 02/18/2023 10:35 AM EDT FASTING:YES FASTING: YES [facility] BLOOD ORDERABLES Final Resul t [facility] [address] [facility], [facility], [place] [address] [facility] [place] [facility] [address] [place] [address] * ALBUMIN, RANDOM URINE W/CREATININE (08/21/2020 9:49 [...] Provider LAB URINE ORDERABLES Josefina hamilton Result [facility] [address] from Last 3 Months or Most Recently Relevant to Health Maintenance Insurance [facility] < 65 [place] [id number] Care Teams Materials Scientist Relationship Specialty Start Date End Date Tawana Castle ANP [address] [place] [phone] PCP - General Family Medicine 07/21/21
--- OUTSIDE RECORDS SUMMARY | 2025-09-28 11:15 | XMS_ITS | Encounter Summary ---
Author Organization [employer] Address [address] [facility] [address] [place] [address] Care Team Providers Care Wire Cutter Name Role Phone Jessy Randall Primary Care Provider [phone] Reason for Visit * Reason Comments Med Refill Encounter Details Date Type Department Care Team ([facility] st Contact Info) Description 09/13/[address] [facility] [address] [place] [address] Jessy Randall ANP [address] [place] [address] Nicotine dependence, unspecified, uncomplicated Social History Tobacco Use Types Packs/Day Years [...] Description 10/11/2025 2:30 PM EST Office Visit [facility] [address] [place] [phone] Jessy Randall ANP [address] [place] [phone] 10/19/2025 11:00 AM EST Office Visit [address] [address] Star Trejo MD [address] [place] [phone] documented as of this encounter Visit Diagnoses Diagnosis Nicotine dependence, unspecified, uncomplicated documented in this encounter Additional Health Concerns Assessment Noted Time PHQ-9 Depression Total Score: 0 07/09/20 25 2:17 PM EDT documented as of this encounter Care Teams Wire Cutter Relationship Specialty Start Date End Date Jessy Randall ANP [address] [place] [phone] PCP - General Family Medicine 07/21/21 documented as of this encounter
--- OUTSIDE RECORDS SUMMARY | 2025-09-28 11:15 | XMS_ITS | Encounter Summary ---
Author Organization [employer] Address [address] [facility] [address] [place] [address] Care Team Providers Care Layout Artist Name Role Phone Jessy Randall Primary Care Provider [phone] Reason for Visit * Reason Onset Date Comments Med Refill 11/25/2023 Encounter Details Date Type Department Care Team ([facility] st Contact Info) Description 11/25/2023 Telephone [facility] [address] [place] [address] Jessy Randall ANP [address] [place] [address] Med Refill Social History Tobacco Use Types [...] 9:33 AM EST Medication was sent to [facility] on 11/04/23. * Telephone Encounter - Mihaela Schwab - 11/25/2023 9:29 AM EST TC from pt requesting medication refill. Medications needing refill : dulaglutide (Trulicity) 0.75 MG/0.5ML solution pen-injector [facility] documented in this encounter Plan of Treatment Upcoming Encounters Date Type Department Care Team (Late st Contact Info) Description 10/11/2025 2:30 PM EST Office Visit [facility] [address] [place] [phone] Jessy Randall ANP [address] [place] [address] 10/19/2025 11:00 AM EST Office Visit [facility] [address] [place] [phone] Star Trejo MD [address] [place] [phone] documented as of this encounter Visit Diagnoses Not on filedocumented in this encounter Care Teams Layout Artist Relationship Specialty Start Date End Date Jessy Randall ANP [address] [place] [address] PCP - General Family Medicine 07/21/21 documented as of this encounter
--- OUTSIDE RECORDS SUMMARY | 2025-09-28 11:15 | XMS_ITS | Data Portability ---
Author Organization [email or web address] [facility], [facility] [employer] [facility] Address [address] [place] [phone] Care Team Providers Care Cemetery Worker Name Role Phone [facility] Primary Care Provider Assessment Encounter Date Assessment Date Assessment LastModified by Organization Details LastModified Time 12/28/2023 12/28/2023 I have reviewed and agree with the assessment and plan as documented by the juvenile probation officer. I provided real-time medical direction for this encounter and was immediately available to provide additional phone-based assistance as needed. 58F presenting with urinary symptoms x 1 month, mornings only. No fever, no flank pain, no recent UTI's no hematuria. No n/v/d. Drinks 1 gallon water/day. O/E: no fever, HR 102, patient states she is anxious. Physical exam otherwise normal, no flank pain or CV tenderness. U/A negative Imp: low likelihood of UTI, however will send Urine for culture. No abx initiated at this time. Supportive care discussed, red flags and return precautions reviewed. paysola Not available 12/28/2023 16:46:40 Plan of Treatment Reminders Order Date Submit Date Provider Last Modified By Organization Details Last Modified Time Details Appointments None recorded. Lab culture, urine 2023 024 PALOS VERDES PENINSULA [facility] (Centralized Electronic Ordering - All Locations), Patient Can Go To The Location Of Their Choice, [id number] 07:59:42 urinalysis , dipstick 2023 024 [email or web address] [facility], [address] [place] [address], [id number] 4 16:46:43 Referral None recorded. Procedures None recorded. Surgeries None recorded. Imaging None recorded. Medication Orders None recorded. Patient TargetsNo targets recorded. Patient InstructionsNo instructions recorded. Reason for Referral None Reported. Results Created Date Observation Date Name Description Value Unit Range Abnormal Flag Note LastModifiedBy Organization Detail LastModifiedTime 12/28/1912/28/2023 URINE CULTU RE specimen description URINE Not Available [facility] (Centralized [facility] Ordering - All Locations) Patient Can Go To The Location Of Their Choice, 12/31/2023 07:59:42 12/28/19 24 12/28/2023 URINE CULTU RE special requests NONE Not Available [facility] (Centralized Electronic Ordering - All Locations) Patient Can Go To The Location Of Their Choice, 12/31/2023 07:59:42 12/28/19 24 12/31/2023 URINE CULTU RE culture abnormal 50-10 0,000 COL/M L ESCHE FREDI A COLI These AST resul ts were perfo rmed on the Vite[employer] 2 ID and AST syste m Not Available [facility] (Centralized Electronic Ordering - All Locations) Patient Can Go To The Location Of Their Choice, 12/31/2023 07:59:42 12/28/1912/31/2023 URINE CULTU RE report status FINAL 2023 Not Available [facility] (Centralized Electronic Ordering - All Locations) Patient Can Go To The Location Of Their Choice, 12/31/2023 07:59:42 12/28/19 24 12/31/2023 URINE CULTU RE organism ORGAN ISM 50-10 0,000 COL/M L ESCHE FREDI A COLI These AST resul ts were perfo rmed on the [employer] 2 ID and AST syste m Not Available [facility] (Centralized Electronic Ordering - All Locations) Patient Can Go To The Location Of Their Choice, 12/31/2023 07:59:42 12/28/1912/31/2023 URINE CULTU RE method METHOD MIN. INHIB. CONC. (MCG/M L) Not Available [facility] (Centralized Electronic Ordering - All Locations) Patient Can Go To The Location Of Their Choice, 12/31/2023 07:59:42 12/28/19 24 12/31/2023 URINE CULTU RE ampicillin AMPICI LLIN RESIST ANT resistant Not Available [facility] (Centralized Electronic Ordering - All Locations) Patient Can Go To The Location Of Their Choice, 12/31/2023 07:59:42 12/28/19 24 12/31/2023 URINE CULTU RE ampicillin/s ulbactam AMPICI LLIN/S ULBACT AM RESIST ANT resistant Not Available [facility] (Centralized Electronic Ordering - All Locations) Patient Can Go To The Location Of Their Choice, 12/31/2023 07:59:42 12/28/19 24 12/31/2023 URINE CULTU RE cefazolin CEFAZO PRATIMA RESIST ANT resistant Not Available [facility] (Centralized Electronic Ordering - All Locations) Patient Can Go To The Location Of Their Choice, 12/31/2023 07:59:42 12/28/19 24 12/31/2023 URINE CULTU RE cefepime CEFEPI ME SUSCEP TIBLE susceptib le Not Available [facility] (Centralized Electronic Ordering - All Locations) Patient Can Go To The Location Of Their Choice, 12/31/2023 07:59:42 12/28/19 24 12/31/2023 URINE CULTU RE ceftriaxone CEFTRI AXONE SUSCEP TIBLE susceptib le Not Available [facility] (Centralized Electronic Ordering - All Locations) Patient Can Go To The Location Of Their Choice, 12/31/2023 07:59:42 12/28/19 24 12/31/2023 URINE CULTU RE ciprofloxaci n CIPROF LOXACI N SUSCEP TIBLE susceptib le Not Available [facility] (Centralized Electronic Ordering - All Locations) Patient Can Go To The Location Of Their Choice, 12/31/2023 07:59:42 12/28/19 24 12/31/2023 URINE CULTU RE ertapenem ERTAPE NEM SUSCEP TIBLE susceptib le Not Available [facility] (Centralized Electronic Ordering - All Locations) Patient Can Go To The Location Of Their Choice, 12/31/2023 07:59:42 12/28/19 24 12/31/2023 URINE CULTU RE gentamicin GENTAM ICIN SUSCEP TIBLE susceptib le Not Available [facility] (Centralized Electronic Ordering - All Locations) Patient Can Go To The Location Of Their Choice, 12/31/2023 07:59:42 12/28/19 24 12/31/2023 URINE CULTU RE levofloxacin LEVOFL OXACIN SUSCEP TIBLE susceptib le Not Available [facility] (Centralized Electronic Ordering - All Locations) Patient Can Go To The Location Of Their Choice, 12/31/2023 07:59:42 12/28/19 24 12/31/2023 URINE CULTU RE nitrofuranto in NITROF URANTO IN SUSCEP TIBLE susceptib le Not Available [facility] (Centralized Electronic Ordering - All Locations) Patient Can Go To The Location Of Their Choice, 12/31/2023 07:59:42 12/28/19 24 12/31/2023 URINE CULTU RE piperacillin /tazobactam PIPERA CILLIN /TAZOB AC SUSCEP TIBLE susceptib le Not Available [facility] (Centralized Electronic Ordering - All Locations) Patient Can Go To The Location Of Their Choice, 12/31/2023 07:59:42 12/28/19 24 12/31/2023 URINE CULTU RE trimeth/sulf amethox TRIMET H/SULF AMETHO X SUSCEP TIBLE susceptib le Not Available [facility] (Centralized Electronic Ordering - All Locations) Patient Can Go To The Location Of Their Choice, 12/31/2023 07:59:42 12/28/19 24 12/28/2023 urina lysis , dipst ick Leukocytes negati ve Not Available Main - [facility] ed [address] [place] [address], [address] [place] [address] 12/28/2023 16:44:31 12/28/19 24 12/28/2023 urina lysis , dipst ick Nitrite negati ve Not Available Main - [facility] ed [address] [place] [address], [address] [place] [address] 12/28/2023 16:44:31 12/28/19 24 12/28/2023 urina lysis , dipst ick Blood negati ve Not Available Main - [facility] ed [address] [place] [address], [phone] 12/28/2023 16:44:31 12/28/19 24 12/28/2023 urina lysis , dipst ick Color clear Not Available Main - [facility] jaimie [address] [place] [address], [address] [place] [address] 12/28/2023 16:44:31 Result Notes None recorded. Medical Equipment None Reported. Medications Name Sig Start Date Stop Date Status Note LastModified by Organization Details LastModified Time celecoxib 200 mg capsule TAKE 1 CAPSULE BY MOUTH DAILY WITH FOOD NEEDED FOR PAIN active Not Available Not Available No t Available amoxicillin 500 mg capsule TAKE 1 CAPSULE BY MOUTH THREE TIMES DAILY FOR 7 DAYS active Not Available Not Available N ot Available atorvastatin 40 mg tablet TAKE 1 TABLET BY MOUTH ONCE DAILY IN THE MORNING active Not Available Not Available Not Available levothyroxin e 175 mcg tablet TAKE 1 TABLET BY MOUTH EVERY DAY 6 DAYS PER WEEK, DO NOT TAKE ON WEDNESDAY. TAKE ON AN EMPTY STOMACH 30-60min BEFORE BREAKFAST. active Not Available Not Available N ot Available atorvastatin 20 mg tablet TAKE 1 TABLET BY MOUTH EVERY DAY active Not Available Not Available No t Available nicotine 14 mg/24 hr daily transdermal patch APPLY 1 PATCH TOPICALLY TO THE SKIN IN THE MORNING DO NOT SMOKE WHILE USING PATCH active Not Available Not Available No t Available trazodone 50 mg tablet TAKE 1 TO 2 TABLETS BY MOUTH AT BEDTIME NEEDED active Not Available Not Available No t Available atorvastatin 10 mg tablet TAKE 1 TABLET BY MOUTH EVERY DAY active Not Available Not Available No t Available cefpodoxime 200 mg tablet TAKE 1 TABLET BY MOUTH EVERY TWELVE HOURS FOR 7 DAYS active Not Available Not Available No t Available meloxicam 15 mg tablet TAKE 1 TABLET BY MOUTH DAILY NEEDED FOR PAIN active Not Available Not Available No t Available clonazepam 1 mg tablet TAKE 1 TABLET BY MOUTH TWICE DAILY NEEDED active Not Available Not Available No t Available topiramate 25 mg tablet TAKE 1 TABLET BY MOUTH EVERY DAY active Not Available Not Available No t Available butalbital-a cetaminophen -caffeine 50 mg-325 mg-40 mg tablet TAKE 1 OR 2 TABLETS BY MOUTH EVERY 4 HOURS NEEDED. DO NOT EXCEED 6 TABLETS IN 24 HOURS OR 3 DAYS IN 1 MONTH active Not Available Not Available N ot Available meloxicam 7.5 mg tablet TAKE 1 TABLET BY MOUTH ONE OR TWO TIMES DAILY NEEDED FOR PAIN TAKE WITH FOOD active Not Available Not Available No t Available prazosin 5 mg capsule TAKE 1 CAPSULE BY MOUTH AT BEDTIME active Not Available Not Available No t Available temazepam 15 mg capsule TAKE 1 CAPSULE BY MOUTH AT BEDTIME NEEDED. DO NOT TAKE WITH KLONOPIN (CLONAZEPAM ) active Not Available Not Available No t Available gabapentin 800 mg tablet TAKE 1 TABLET BY MOUTH ONCE DAILY active Not Available Not Available No t Available temazepam 30 mg capsule TAKE 1 CAPSULE BY MOUTH AT BEDTIME NEEDED active Not Available Not Available No t Available lidocaine 5 % topical patch APPLY 1 PATCH TOPICALLY TO SKIN, LEAVE ON FOR 12 HOURS AND OFF FOR 12 HOURS DIRECTED active Not Available Not Available No t Available omeprazole 20 mg capsule,eric yed release TAKE 1 CAPSULE BY MOUTH ONCE DAILY BEFORE A MEAL ((for stomach acid) active Not Available Not Available No t Available ibuprofen 600 mg tablet TAKE 1 TABLET BY MOUTH TWICE DAILY WITH FOOD NEEDED FOR PAIN active Not Available Not Available No t Available hydrocortiso ne butyrate 0.1 % topical solution APPLY A THIN LAYER TO AFFECTED AREA(S) TWICE DAILY DIRECTED active Not Available Not Available Not Available metformin ER 500 mg tablet,exten ded release 24 hr TAKE 1 TABLET BY MOUTH EVERY DAY IN THE EVENING WITH MEAL active Not Available Not Available No t Available lisinopril 2.5 mg tablet TAKE 1 TABLET BY MOUTH ONCE DAILY IN THE MORNING active Not Available Not Available Not Available nicotine 7 mg/24 hr daily transdermal patch APPLY 1 PATCH TOPICALLY TO THE SKIN IN THE MORNING DO NOT SMOKE WHILE USING PATCH START AFTER 14 MG PATCH active Not Available Not Available No t Available buspirone 15 mg tablet TAKE 1 TABLET BY MOUTH THREE TIMES DAILY active Not Available Not Available Not Available nicotine (polacrilex) 2 mg buccal lozenge DISSOLVE 1 LOZENGE IN MOUTH EVERY 2 HOURS NEEDED (para reemplazar un cigarrillo) active Not Available Not Available Not Available Systane (propylene glycol) 0.4 %-0.3 % eye drops INSTILL 1 DROP IN AFFECTED EYE(S) EVERY 2 HOURS NEEDED active Not Available Not Available No t Available bupropion HCl XL 150 mg 24 hr tablet, extended release TAKE 1 TABLET BY MOUTH EVERY DAY active Not Available Not Available No t Available topiramate 50 mg tablet TAKE 1 TABLET BY MOUTH ONCE DAILY active Not Available Not Available No t Available duloxetine 20 mg capsule,eric yed release TAKE 2 CAPSULES BY MOUTH EVERY DAY AT BEDTIME active Not Available Not Available No t Available blood pressure test kit-large cuff USE TO CHECK BLOOD PRESSURE DAILY active Not Available Not Available No t Available Vitamin D3 50 mcg (2,000 unit) capsule TAKE 1 CAPSULE BY MOUTH AT BEDTIME active Not Available Not Available No t Available OneTouch Verio test strips USE DIRECTED TO TEST BLOOD SUGAR TWICE DAILY active Not Available Not Available No t Available Trulicity 0.75 mg/0.5 mL subcutaneous pen injector INJECT ONE PEN (=0.75MG) SUBCUTANEOU SLY ONCE A WEEK DIRECTED active Not Available Not Available No t Available OneTouch Verio Flex Meter USE DIRECTED TO TEST BLOOD SUGAR TWICE DAILY active Not Available Not Available No t Available OneTouch Delica Plus Lancet 33 gauge USE DIRECTED TO TEST BLOOD SUGAR TWICE DAILY active Not Available Not Available No t Available Vitals Date Recorded Heart rate Oxygen saturation Oxygen saturation in Arterial blood by Pulse oximetry Body height Body weight Respiratory rate Body temperature Systolic And Diastolic Provider Name and Address Organization Details Last Updated DateTime 4 106 /min 94 % 94 % 167.64 cm 22598.3 6 g 20 /min 98.7 [degF] 121/86 mm[Hg] Not Available [facility] - production 4 16:43:37 Social History None recorded. Functional Status None recorded. Mental Status None recorded. Family History Nothing Reported. Medical History No medical history recorded. Gynecological HistoryNo gynecological history recorded. Obstetrics History GPAL:G 0 P 0 0 0 0 Past Encounters Encounter ID Performer Location Encounter Start Date Encounter Closed Date Diagnosis/Indication Diagnosis SNOMED-CT Code Diagnosis ICD10 Code Diagnosis IMO Codes Diagnosis Note [id number] Marisol Little MD Main - [facility] [address] [place] [phone] 12/28/2023 16:43:31 12/28/2023 21:40:35 Urinary symptoms 817534612 R39.9 Health Concerns Section Related Observation LastModified by Organization Detai ls LastModified Time None Recorded Concern Status LastModified by Organization Details LastModified Time None Recorded Advance Directives Directive None Recorded Payers Insurance Date Sequence Insurance Name Policy Number Policy Kirby Covered Member ID Kirby Member ID Guarantor Name 12/28/2023 1 [facility] - DOS ON OR AFTER 2023 - DUAL ELIGIBLE - [employer] AND ONE [employer] (MEDICARE REPLACEMENT/ADV ANTAGE - HMO) Rachel Mcginnis [id number] Rachel Mcginnis Notes Date Note Type Note Provider Name and Address Organization Details Recorded Time 12/28/2023 text/html HPI: Call to Rachel Mcginnis, reports having odor to urine and dark color x 2 weeks. Per pt no pain with passing urine. No pelvic pain. Intermittent flank pain. No hesitancy. Is having urgency/frequency. Pt offered appt today. Pt has no transportation. Agrees to [facility] referral for UA to rule out UTI. .................. .................. .................. .................. .................. .................. .................. ............... [facility] Nurse Triage Notes (Mani Orona): Comments: HPI was reviewed by this travel writer - No further information needed at this time. .................. .................. .................. .................. .................. .................. .................. ............... Supervisor Riveting Note From Miriam Finley: Sent to a call for a pt complaining of mal-odorous urine. [facility]-01 arrives on scene, pt is alert and oriented, airway is patent, pt appears nervous. Pt complains of dark, mal-odorous urine twice each morning for approx one month. Pt denies montanez, dizziness, cp, sob, n/v/d, abd pain, dysuria, hematuria, increased urinary urgency, urinary incontinence, fever, or loc. Pt states only med change was starting Trulicity two months ago. Pt states she drinks approx 1 gal water daily, and has been drinking large amounts of water since childhood. BP:121/86, P:106, RR:18, SpO2:94% RA, T:98.7; B; Head: unremarkable; Lung sounds: clear bilaterally; Abdomen: soft, non-tender, no distention; Back: no CVA tenderness; Extremities: unremarkable; Skin: pink, warm, dry; Urine sample obtained; urine dip: neg; [facility] consulted and orders urine culture to be sent to [facility]. Pt reassured of stable condition. Red flags discussed. Pt has no further questions. [facility] Lab Orders: culture, urine: Performed urinalysis, dipstick: Performed .................. .................. .................. .................. .................. .................. .................. ............... Disposition: Fulfilled Marisol Little MD [address] [place] [address],[facility], [place], [phone], [employer] 12/28/2023 17:50:31 OBGyn Episode No OBEpisode recorded.
--- OUTSIDE RECORDS SUMMARY | 2025-09-28 11:16 | XMS_ITS | Encounter Summary ---
Author Organization [employer] Address [address] [facility] [address] [facility] [address] [place] [address] Care Team Providers Care Caddie Name Role Phone Jessy Randall Primary Care Provider [phone] Reason for Visit * Reason Comments Med Refill Encounter Details Date Type Department Care Team ([facility] st Contact Info) Description 09/08/2023 Refill [facility] [address] [place], [place] [phone] Jessy Randall ANP [address] [place] [address] Pain Social History Tobacco Use Types Packs/Day [...] Description 10/11/2025 2:30 PM EST Office Visit [facility] [address] [place] [phone] Jessy Randall ANP [address] [place] [address] 10/19/2025 11:00 AM EST Office Visit [facility] [address] [place] [phone] Star Trejo MD [address] [place] [phone] documented as of this encounter Visit Diagnoses Diagnosis Pain Generalized pain documented in this encounter Care Teams Caddie Relationship Specialty Start Date End Date Jessy Randall ANP [address] [place] [phone] PCP - General Family Medicine 07/21/21 documented as of this encounter
--- OUTSIDE RECORDS SUMMARY | 2025-09-28 11:16 | XMS_ITS | Encounter Summary ---
Author Organization [employer] Address [address] [facility] [address] [place] [address] Care Team Providers Care Organ Pipe Finisher Name Role Phone Jessy Randall Primary Care Provider [phone] Reason for Visit * Reason Comments Med Refill Encounter Details Date Type Department Care Team (Late Contact Info) Description 05/05/2023 Refill [facility] [address] [place] [address] Jessy Randall ANP [address] [place] [address] Chronic migraine without aura without status migrainosus, [...] Department Care Team (Late Contact Info) Description 10/11/2025 2:30 PM EST Office Visit [address] [address] Jessy Randall ANP [address] [place] [address] 10/19/2025 11:00 AM EST Office Visit [address] [address] Star Trejo MD [address] [place] [address] documented as of this encounter Visit Diagnoses Diagnosis Chronic migraine without aura without status migrainosus, not intractable documented in this encounter Care Teams Organ Pipe Finisher Relationship Specialty Start Date End Date Jessy Randall ANP [address] [place] [phone] PCP - General Family Medicine 07/21/21 documented as of this encounter
--- OUTSIDE RECORDS SUMMARY | 2025-09-28 11:16 | XMS_ITS | Encounter Summary ---
Author Organization [employer] Address [address] [facility] [address] [place] [address] Care Team Providers Care Heavy Duty Press Operator Name Role Phone Jessy Randall Primary Care Provider [phone] Reason for Visit * Reason Onset Date Comments Medication Question 04/11/2025 Encounter Details Date Type Department Care Team ([facility] st Contact Info) Description 04/11/2025 Telephone [facility] [address] [place] [address] Jessy Randall ANP [address] [place] [address] Medication Question Social History Tobacco Use Types [...] 04/11/2025 3:22 PM EDT TC placed to [facility] in to inquire about the schedule for Elie Jovel and if the pt would beable to transfer her care over to him. The pt reported that former psychiatrist Alysia Gould at [facility] in [place] has retired. RN tried to call [facility] to confirm this information but was on hold for some time. [facility] states that she will call that office to inquire as there is a process to changing providers. This message will routed to [facility] in * Telephone Encounter - Citlali Cordoba - 04/11/2025 1:09 PM EDT Tc from pt requesting a call back. Pt stated she was following up with psychiatrist but current oneretired. Pt stated she was advised to request a new referral to a different psychiatrist and pcp toprescribe medication until pt establishes care. Contact pt at [phone] (turkish) documented in this encounter Plan of Treatment Upcoming Encounters Date Type Department Care Team (Late st Contact Info) Description 10/11/2025 2:30 PM EST Office Visit [address] [address] Jessy Randall ANP [address] [place] [address] 10/19/2025 11:00 AM EST Office Visit [address] [phone] Star Trejo MD [address] [place] [address] [phone] documented as of this encounter Visit Diagnoses Not on filedocumented in this encounter Additional Health Concerns Assessment Noted Time PHQ-9 Depression Total Score: 11 025 2:04 PM EST documented as of this encounter Care Teams Heavy Duty Press Operator Relationship Specialty Start Date End Date Jessy Randall ANP [address] [place] [phone] PCP - General Family Medicine 07/21/21 documented as of this encounter
--- OUTSIDE RECORDS SUMMARY | 2025-09-28 11:16 | XMS_ITS | Encounter Summary ---
Author Organization [employer] Address [address] [facility] [address]t [place] [address] Care Team Providers Care Reconcilement Clerk Name Role Phone Jessy Randall Primary Care Provider [phone] Reason for Visit * Reason Onset Date Comments Nurse Triage 02/21/2025 Encounter Details Date Type Department Care Team ([facility] st Contact Info) Description 02/21/2025 Telephone [facility] [address] [place] [address] Jessy Randall ANP [address] [place] [address] Nurse Triage Social History Tobacco Use Types [...] 02/21/2025 9:47 AM EDT Triage call with [employer] Wireless[employer] goods drier [place] [id number]. Pt is at work at time of [...] Description 10/11/2025 2:30 PM EST Office Visit [address] [address] Jessy Randall ANP [address] [place] [address] 10/19/2025 11:00 AM EST Office Visit [address] [phone] Star Trejo MD [address] [place] [phone] documented as of this encounter Visit Diagnoses Not on filedocumented in this encounter Additional Health Concerns Assessment Noted Time PHQ-9 Depression Total Score: 11 025 2:04 PM EST documented as of this encounter Care Teams Reconcilement Clerk Relationship Specialty Start Date End Date Jessy Randall ANP [address] [place] [address] [phone] PCP - General Family Medicine 07/21/21 documented as of this encounter
[2025-10-01 18:28] LABS: TS Negative Control Passed; TS Panel A 2; TS Panel B 5; TS Positive Control Passed; TSpotTB Borderline (Negative)
== END 2025-09-28 10:01 | disposition home or self-care (01) ==
LOC: HO.HHCL 10:00
PROVIDERS: PCP Nurse Practitioner Primary Care; Visit Provider Nurse Practitioner Primary Care
DX: Z11.1 Encounter for screening for respiratory tuberculosis (principal)
CPT/HCPCS: 36415; 86481

== ENCOUNTER 2025-10-22 14:57 | Outpatient (REF) | payer OTHER, SELFPAY ==
--- OUTSIDE RECORDS SUMMARY | 2025-10-22 14:20 | XMS_ITS | Encounter Summary ---
Author Organization [employer] Address [address] [place] [address] Care Team Providers Care [employer] Customs And Border Officer Name Role Phone Tonia Jessy WALLS Primary Care Provider [phone] Encounter Details Date Type Department Care Team ([facility] st Contact Info) Description 10/22/2025 2:20 PM EST Office Visit [facility] [address] [place] [address] Upper back pain (Primary Dx); Pain Social History Tobacco Use Types Packs/Day [...] AM EDT documented as of this encounter Last Filed Vital Signs Vital Sign Reading Time Taken Comments Blood Pressure 121/73 10/22/2025 2:12 PM EST Pulse 82 10/22/2025 2:12 PM EST Temperature 37.1 C (98.8 F) 10/22/2025 2:12 PM EST Respiratory Rate 21 10/22/2025 2:12 PM EST Oxygen Saturation 99% 10/22/2025 2:12 PM EST Inhaled Oxygen Concentration - - Weight 82.1 kg (181 lb) 10/22/2025 2:12 PM EST Height 160 cm (5' 3 ) 10/22/2025 2:12 PM EST Body Mass Index 32.06 10/22/2025 2:12 PM EST documented in this encounter Plan of Treatment Upcoming Encounters Date Type Department Care Team (Late st Contact Info) Description 12/10/2025 2:30 PM EST Office Visit [facility] [address] [place] [phone] Jessy Randall ANP [address] [place] [address] documented as of this encounter Procedures Procedure Name Priority Date/Time Associated Diagnosis Comments SED RATE BY MODIFIED WESTERGREN Routine 10/22/2025 3:00 PM EST Upper back pain C-REACTIVE PROTEIN Routine 10/22/2025 3: 00 PM EST Upper back pain documented in this encounter Results * C-reactive Protein (10/22/2025 3:00 PM EST) C Reactive Protein 0.29 < or = 0.50 mg/dL [facility] Blood Venous blood specimen / Unknown 10/22/2025 3:00 PM EST 10/22/2025 3:[address] [facility] [employer] LAB BLOOD ORDERABLES Final Resu lt Performing Organization Address City/[facility]/ZIP Co de Phone Number [facility] [address] [place] [address] [phone] * Sed Rate by Modified Westergren (10/22/2025 3:00 PM EST) Erythrocyte Sedimentation Rate 20 0 - 20 MM/HR [facility] Comment:Patients with polycy themia and many hemoglobin abnormalitiesmay have depressed sed rates whereas patients with anemiamay have elevated sed rates. Blood Venous blood specimen / Unknown 10/22/2025 3:00 PM EST 10/22/2025 3:[address] [facility] [employer] LAB BLOOD ORDERABLES Final Resu lt Performing Organization Address City/[facility] Co de Phone Number [facility] [address] [place] [address] [phone] documented in this encounter Visit Diagnoses Diagnosis Upper back pain- Primary Unspecified backache Pain Generalized pain documented in this encounter Additional Health Concerns Assessment Noted Time PHQ-9 Depression Total Score: 0 07/09/20 25 2:17 PM EDT documented as of this encounter Care Teams [employer] Customs And Border Officer Relationship Specialty Start Date End Date Jessy Randall ANP [address] [place] [phone] PCP - General Family Medicine 07/21/21 documented as of this encounter
--- OUTSIDE RECORDS SUMMARY | 2025-10-22 19:45 | XMS_ITS | Encounter Summary ---
Author Organization [employer] Address [address] [place] [address] Care Team Providers Care Vessel Slag Worker Name Role Phone Jessy Randall Primary Care Provider [phone] Reason for Visit * Reason Comments Med Refill Encounter Details Date Type Department Care Team ([facility] st Contact Info) Description 10/15/2023 Refill [facility] [address] [place] [address] Name, MD Osvaldo [address] [place] [address] Social History Tobacco Use Types Packs/Day Years [...] Description 12/10/2025 2:30 PM EST Office Visit [facility] [address] [place] [phone] Jessy Randall ANP [address] [place] [phone] documented as of this encounter Visit Diagnoses Not on filedocumented in this encounter Care Teams Vessel Slag Worker Relationship Specialty Start Date End Date Jessy Randall ANP [address] [place] [id number] PCP - General Family Medicine 07/21/21 documented as of this encounter
--- OUTSIDE RECORDS SUMMARY | 2025-10-22 19:45 | XMS_ITS | Clinical Summary ---
Author Organization [facility] Address [address] [place] [address] Care Team Providers Care Airline Dispatcher Name Role Phone Tawana Castle KAVITA Primary Care Provider [phone] Allergies Active Allergy Reactions Criticality Noted Date Comments Sulfa Antibiotics Hives Low 01/14/2021 Medications * This document contains information received from the source organization and may not represent a complete record from that organization. clonazePAM (KlonoPIN) 1 MG tablet Take 1 tablet by mouth every 8 (eight) hours. Active triamcinolone (Kenalog) 0.1 % ointment Apply topically every 12 (twelve) hours. 022 Active zoster vaccine-recombin ant adjuvanted (Shingrix) 50 MCG/0.5ML vaccine inject 0.5 [...] capsule 60 mg. 023 Active Blood Pressure kitIndications:E levated blood pressure reading without diagnosis of hypertension [...] 11 023 Active ciclopirox (Ciclodan) 8 % solutionIndicati ons:Toenail fungus Apply topically at bedtime. To affected nails 6 mL 3 024 Active glucose blood (OneTouch Verio) test strip TEST BLOOD SUGAR TWICE DAILY 100 each 11 024 Active atorvastatin (Lipitor) 40 MG tabletIndication s:Type 2 diabetes mellitus with hyperlipidemia (HCC) TAKE 1 TABLET BY MOUTH ONCE DAILY IN THE MORNING 90 tablet 3 024 Active Hydrocortisone Butyrate 0.1 % solutionIndicati ons:Dermatitis APPLY A THIN LAYER TO AFFECTED AREA(S) TWICE DAILY DIRECTED 60 mL 2 025 Active lisinopril 2.5 MG tabletIndication s:Essential hypertension Take 1 tablet (2.5 mg) by mouth in the morning. 90 tablet 3 10/16/20 12:51 PM EST 025 Active pantoprazole (Protonix) 40 MG EC tabletIndication s:Gastroesophage al reflux disease, unspecified whether esophagitis present Take 1 tab 30 min before meal, twice daily, Do not crush, chew, or split. 60 tablet 11 10/16/20 12:51 PM EST 025 Active busPIRone (Buspar) 15 MG tabletIndication s:Anxiety TAKE 1 TABLET BY MOUTH THREE TIMES DAILY 90 tablet 5 10/16/20 25 12:51 PM EST 025 Active metoclopramide (Reglan) 5 MG tabletIndication s:Nausea Take 1 tablet (5 mg) by mouth every 8 (eight) hours if needed (nausea) for up to 7 days. 21 tablet 025 Active nabumetone (Relafen) 500 MG tabletIndication s:Acute midline low back pain without sciatica Take 1 tab as needed for back pain up to twice daily 60 tablet 025 Active levothyroxine (Synthroid, Levoxyl) 175 MCG tabletIndication s:Hypothyroidism , unspecified type TAKE 1 TABLET BY MOUTH ONCE DAILY 6 DAYS PER WEEK. DO NOT TAKE ON WEDNESDAY. TAKE ON AN EMPTY STOMACH 30 TO 60 MINUTES BEFORE BREAKFAST. 96 tablet 1 10/16/20 25 12:51 PM EST Active nicotine polacrilex (Commit) 2 MG lozengeIndicatio ns:Nicotine dependence, unspecified, uncomplicated DISSOLVE 1 LOZENGE BY MOUTH EVERY 2 HOURS NEEDED (para reemplazar un cigarrillo) 72 lozenge 1 Active topiramate (Topamax) 100 MG tabletIndication s:Cocaine use disorder (CMS/HCC) (HCC) Take 1 tablet (100 mg) by mouth 2 times daily. 60 tablet 2 10/16/20 25 12:51 PM EST 025 2025 Active nicotine (Nicoderm, Step 2) 14 MG/24HR patchIndications :Nicotine dependence, unspecified, uncomplicated APPLY 1 PATCH TOPICALLY TO THE SKIN IN THE MORNING *DO NOT SMOKE WHILE USING PATCH* 28 patch 1 Active Trulicity 3 MG/0.5ML solution auto-injectorInd ications:Type 2 diabetes mellitus with hyperlipidemia (HCC) INJECT ONE PEN (= 3MG) SUBCUTANEOUSLY ONCE A WEEK DIRECTED 2 mL 2 10/16/20 25 12:51 PM EST Active gabapentin (Neurontin) 800 MG tabletIndication s:Right leg pain Take 1 tablet (800 mg) by mouth Once per day. 90 tablet 1 10/12/20 25 10:18 AM EST Active cetirizine (ZyrTEC) 10 MG tabletIndication s:Localized pruritus Take 1 tablet (10 mg) by mouth Once daily as needed for allergies. 90 tablet 025 Active glucose blood (OneTouch Ultra) test strip Use to test blood sugar 2 times daily 100 each 10/12/20 25 10:18 AM EST 025 2025 Active Accu-Chek Softclix Lancets lancets Use as instructed 100 each 10/12/20 25 10:18 AM EST 2025 Active Alcohol Swabs 70 % pads Use to test blood sugar 2 times daily 100 each 11 10/12/20 10:18 AM EST Active Blood Glucose Monitoring Suppl (ONE TOUCH ULTRA 2) w/Device kit Use to test blood sugar 2 times daily 1 kit 10/12/20 10:18 AM EST Active ondansetron (Zofran) 4 MG tabletIndication s:Urinary tract infection without hematuria, site unspecified TAKE 1 TABLET BY MOUTH EVERY 8 HOURS NEEDED FOR NAUSEA AND VOMITING FOR UP TO 7 DAYS 20 tablet Active Diclofenac Sodium 1 % gelIndications:U pper back pain Apply 1 g topically if needed in the morning, at noon, and at bedtime (pain). 100 g 2024 Active ibuprofen 600 MG tabletIndication s:Upper back pain Take 1 tablet (600 mg) by mouth every 8 (eight) hours if needed for mild pain. TAKE 1 TABLET BY MOUTH UP TO TWICE DAILY WITH FOOD NEEDED (for pain) 90 tablet 2024 Active methocarbamol (Robaxin) 500 MG tabletIndication s:Upper back pain Take 1 tablet (500 mg) by mouth every 6 (six) hours. 40 tablet 025 2024 Active cetirizine (ZyrTEC) 10 MG tabletIndication s:Localized pruritus Take 1 tablet (10 mg) by mouth Once daily as needed for allergies. 90 tablet 1 025 2024 Discontinued(R eorder (will not trigger notification to Pharmacy)) gabapentin (Neurontin) 800 MG tabletIndication s:Right leg pain Take 1 tablet (800 mg) by mouth Once per day. 90 tablet 1 025 2024 Discontinued(R eorder (will not trigger notification to Pharmacy)) ondansetron (Zofran) 4 MG tabletIndication s:Urinary tract infection without hematuria, site unspecified TAKE 1 TABLET BY MOUTH EVERY 8 HOURS NEEDED FOR NAUSEA AND VOMITING FOR UP TO 7 DAYS 20 tablet 025 2024 Discontinued(R eorder (will not trigger notification to Pharmacy)) Dulaglutide 3 MG/0.5ML solution auto-injectorInd ications:Type 2 diabetes mellitus with hyperlipidemia (HCC) Inject 3 mg under the skin 1 (one) time per week. 2 mL 2 025 2024 Discontinued ibuprofen 600 MG tabletIndication s:Pain TAKE 1 TABLET BY MOUTH UP TO TWICE DAILY WITH FOOD NEEDED (for pain) 40 tablet 025 2024 Discontinued(R eorder (will not trigger notification to Pharmacy)) Active Problems Problem Noted Date Diagnosed Date [...] documented hx of Bipolar Disorder services including [facility] Psychotherapy psychopharmacology who presents for Substance Use [...] Health Integration Plan Internal Follow up with [facility], Group [facility] Patient Self Plan Patient to utilize skills provided in intervention , Patient to reach out to [facility] team as needed, and Patient to [...] organization. Date Type Department Care Team Description 10/22/2025 2:20 PM EST Office Visit [facility] [address] [place] [phone] Upper back pain (Primary Dx); Pain 10/22/2025 Travel 10/16/2025 Patient Outreach [facility] [address] [place] [address] Hugo Calhoun [facility] 10/16/2025 Refill [facility] [address] [place] [address] Tawana Castle ANP Urinary tract infection without hematuria, site unspecified 10/15/2025 Patient Outreach [facility] [address] [place] [phone] Archie Dempsey [facility] 10/11/2025 Refill [facility] [address] [place] [address] Tawana Castle ANP Localized pruritus 10/09/2025 Telephone [facility] [address] [place] [address] Tawana Castle ANP chart prep 10/04/2025 Patient Outreach [facility] [address] [place] [address] Daniel Trevizo [facility] 10/03/2025 Results Follow-Up [facility] [address] [place] [address] Tawana Castle ANP T-SPOT .TB 10/02/2025 Patient Outreach [address] [address] Hugo Calhoun [facility] 10/01/2025 Refill [facility] [address] [place] [address] Tawana Castle ANP Type 2 diabetes mellitus with hyperlipidemia (HCC); Right leg pain 09/28/2025 11:00 AM EDT Office Visit [address] [address] Star Trejo MD Cocaine use disorder (CMS/HCC) (HCC) (Primary Dx) 09/28/2025 Patient Outreach [address] [address] Archie Demp[facility] 09/28/2025 Travel 09/27/2025 Patient Outreach [address] [address] Daniel Trevizo [facility] 09/25/2025 Patient Outreach [address] [address] Archie Dempsey [facility] 09/20/2025 Patient Outreach [address] [address] Archie Dempsey [facility] 09/19/2025 Refill [facility] [address] [place] [phone] Tawana Castle ANP Nicotine dependence, unspecified, uncomplicated 09/18/2025 Patient Outreach [address] [address] Hugo Calhoun [facility] 09/17/2025 Patient Outreach [address] [address] Archie Dempsey [facility] 09/17/[address] [address] Tawana Castle ANP 09/13/2025 Refill [facility] [address] [place] [address] Tawana Castle ANP Nicotine dependence, unspecified, uncomplicated 09/11/2025 Patient Outreach [facility] [address] [place] [address] Hugo Calhoun [facility] 09/10/2025 Patient Outreach [facility] [place] [address] Archie Dempsey [facility] 09/07/2025 Telephone [facility] [address] [place] [address] Tawana Castle ANP Appointment Request 09/06/2025 Patient Outreach [facility] [address] [facility] [facility] [address] Daniel Trevizo [facility] 09/05/2025 Orders Only [facility] [place] [address] Tawana Castle ANP 09/04/2025 Patient Outreach [facility] [place] [address] Hugo Calhoun [facility] 09/03/2025 Patient Outreach [facility] [place] [address] Shan Zheng [facility] 08/31/2025 12:00 PM EDT Office Visit [facility] [place] [address] Star Trejo MD Cocaine use disorder (CMS/HCC) (HCC) (Primary Dx) 08/31/2025 Travel 08/30/2025 Patient Outreach [facility] [place] [address] Daniel Trevizo [facility] 08/28/2025 Patient Outreach [facility] [place] [address] Hugo Calhoun [facility] 08/23/2025 Patient Outreach [facility] [place] [address] Daniel Trevizo [facility] 08/23/2025 Refill [facility] [address] Tawana Castle ANP Nicotine dependence, unspecified, uncomplicated 08/21/2025 Patient Outreach [facility] [address] [place] [address] Hugo Calhoun RC [facility] 08/20/2025 Patient Outreach [facility] [address] [place] [address] Shan Zheng RC [facility] 08/17/2025 12:00 PM EDT Office Visit [facility] [address] [place] [address] Star Trejo MD Cocaine use (Primary Dx) 08/17/2025 Travel 08/16/2025 Patient Outreach [facility] [address] [place] [address] Daniel Trevizo RC [facility] 08/10/2025 Telephone [facility] [address] [place] [address] Star Trejo MD 08/09/2025 Patient Outreach [facility] [address] [place] [address] Daniel Trevizo RC [facility] 08/09/2025 Patient Outreach [facility] [address] [place] [address] Raiza Santacruz RC [facility] 08/09/2025 Patient Outreach [facility] [address] [place] [address] Archie Dempsey RC [facility] 08/08/2025 Telephone [facility] [address] [place] [address] Tawaan Castle ANP 08/07/2025 Telephone [facility] [address] [place] [address] Tawana Castle, KAVITA nov recall 08/07/2025 Patient Outreach [facility] [address] [place] [address] Hugo Calhoun RC [facility] 07/31/2025 Patient Outreach [facility] [address] [place] [address] Daniel Trevizo RC [facility] 07/26/2025 Refill [facility] [address] [place] [address] Tawana Castle, KAVITA Nicotine dependence, unspecified, uncomplicated 07/24/2025 Telephone [facility] [address] [place] [address] Tawana Castle ANP Telephone call 07/24/2025 Patient Outreach [facility] [address] [place] [address] Daniel Trevizo [facility] 07/24/2025 Orders Only [facility] [address] [place] [address] Tawana Castle ANP 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) from Last 3 Months Immunizations Immunization Administration [...] Mass Index 32.06 10/22/2025 2:12 PM EST Plan of Treatment Upcoming Encounters Date Type Department Care Team (Late st Contact Info) Description 12/10/2025 2:30 PM EST Office Visit [facility] [address] [place] [address] Tawana Castle ANP [address] [place], [place] [phone] Health Maintenance Due Date Last Done Comments CT Colonography 1965 Colonoscopy 1965 FIT 1965 Sigmoidoscopy 1965 Eye Exam 1975 Pap Smear 1986 Cervical Cancer Screening 1995 HPV/Cotest 1995 Diabetes: Foot Exam 06/23/2025 06/23/2024, 06/23/2024, 06/23/2024, Additional history exists Lipid Panel 06/27/2025 06/27/2024, 08/29, 02/17/2023, Additional history exists COVID-19 Vaccine ( season) 2025 12/12/2024, 02/04/2023, 05/08/2022, Additional history exists Influenza Vaccine (#1) 2025 [...] Pneumococcal Vaccine: 50+ Years Completed 02/09/2024, 08/20/2022 Hepatitis B Vaccines Completed 12/12/2024, 02/09/2024, 02/15/2023 [...] Procedure Name Priority Date/Time Associated Diagnosis Comments C-REACTIVE PROTEIN Routine 10/22/2025 3: 00 PM EST Upper back pain SED RATE BY MODIFIED WESTERGREN Routine 10/22/2025 3:00 PM EST Upper back pain T-SPOT(R).TB Routine 09/28/2025 10:04 AM EDT Screening for tuberculosis BI MAMMOGRAM SCREEN W GREGG W IMPLANTS URIEL Routine 09/05/2025 2:25 PM EDT CBC WITH AUTO DIFFERENTIAL Routine 08/03/2025 10:21 AM EDT Leg cramping POCT GLYCATED HEMOGLOBIN, TOTAL Routine 07/09/2025 2:18 PM EDT Type 2 diabetes mellitus with hyperlipidemia (CMS/HCC) (CMS/HCC) LAB COLOGUARD COLON CANCER SCREEN Routine 02/11/2025 [...] Recently Relevant to Health Maintenance Results * Sed Rate by Modified Bernabeergren (10/22/2025 3:00 PM EST) Erythrocyte Sedimentation Rate 20 0 - 20 MM/HR [facility] Comment:Patients with polycy themia and many hemoglobin abnormalitiesmay have depressed sed rates whereas patients with anemiamay have elevated sed rates. Blood Venous blood specimen / Unknown 10/22/2025 3:00 PM EST 10/22/2025 3:57 PM EST [facility] LAB BLOOD ORDERABLES Final Resu lt Performing Organization Address City/[facility]/ZIP Co de Phone Number [facility] [address] [place] [phone] * C-reactive Protein (10/22/2025 3:00 PM EST) Pathologist [facility] C Reactive Protein 0.29 < or = 0.50 mg/dL [facility] Blood Venous blood specimen / Unknown 10/22/2025 3:00 PM EST 10/22/2025 3:57 PM EST [facility] LAB BLOOD ORDERABLES Final Resu lt Performing Organization Address City/[facility]/ZIP Co de Phone Number [facility] [address] [place] [phone] * (ABNORMAL) T-SPOT??.TB (09/28/2025 10:04 AM EDT) T Spot TB Borderli ne(A) Negative [facility] Comment:The patient's test r esult cannot be definitivelyclassified as positive or negative. Retesting of thepatient is recommended although there is no setguideline established for the time interval betweenan initial borderline result and a retest.The T-SPOT.TB is a diagnostic aid. If the test resultremains borderline upon retesting, other diagnosticsand/or epidemiologic information should be used tohelp determine the Mycobacterium tuberculosis infectionstatus of the patient.The T- SPOT.TB test is qualitative and results arereported as positive, borderline, or negative, giventhat the test controls perform as expected. In linewith the Centers for Disease Control and Prevention's2010 recommendation to report quantitative measurementsalongside the qualitative result, the laboratoryprovides spot counts for informational purposes only.The T-SPOT.TB test should not be interpreted as aquantitative test. TS PANEL A 2 [facility] TS PANEL B 5 [facility] Negative Control Passed [facility] Positive Control Passed [facility] Comment:For additional infor omidblade, please refer tohttp://education.[employer]/faq/LVR640(This link is being provided for informational/educational purposes only.)THIS TEST WAS PERFORMED AT:[id number] [place] [address]QFRSJEGLYNETTE MORAES MD,PHD 09/28/2025 10:0 4 AM EDT 09/28/2025 11:22 AM EDT Narrative [facility] - 10/01/2025 6:28 PM EST 10/02/2025 at 14:45 by ROSAURA [facility] BLOOD ORDERABLES Final Resul t [facility] [address] [place] [phone] * BI Mammogram Screen w/ Gregg w/ Implants Uriel (09/05/2025 2:25 PM EDT) Anatomical Region Laterality Modality Mammography 09/05/2025 2:25 PM EDT Narrative 09/14/2025 4:44 PM EDT [facility] [address] [place], [place] [address] Mammography Report Signed Patient: Rachel Myers MR#: [id number] : 1965 Acct:[id number] Age/Sex: 60 / F ADM Date: 09/05/25 Loc: HO.MAMMO Attending Dr: Twaana Castle NP Ordering Physician: TAWANA CASTLE NP Results: 2Benign Date of Service: 09/05/25 Follow Up: 1 Year From Orig inal Mammogram Procedure(s): MM tomosynthesis screen imp BI Accession Number(s): [id number] cc: TAWANA CASTLE NP Reason For Exam: [...] 09/14/25 1641 DD/ 1425 TD/TT: 09/05/25 1445 Assistant Head Cashier: Procedure Note Donotuseinterpreter, Image - 10/17/2025 [facility] [address] [place] [address] Mammography Report Signed Patient: Nakita Myers#: [id number] : 1965Acct:[id number] Age/Sex: 60 / FADM Date: 09/05/25 Loc: HO.MAMMO Attending Dr: Tawana Castle NP Ordering Physician: TAWANA CASTLE NPResults: 2Benign Date of Service: 09/05/25Follow Up: 1 Year From Orig inal Mammogram Procedure(s): MM tomosynthesis screen imp BI Accession Number(s): [id number] cc: TAWANA CASTLE NP Reason For Exam: [...] 09/14/25 1641 DD/ 1425 TD/TT: 09/05/25 1445 Assistant Head Cashier: Tawana Castle ANP IMG BI PROCEDURES Final Result * (ABNORMAL) CBC auto differential (08/03/2025 10:21 AM EDT) White Blood Count 6.3 4.8 - 10.8 X10*3/uL [facility] Red Blood Count 3.61(L) 4.20 - 5.50 X10*6/uL [facility] Hemoglobin 11.8(L) 12.0 - 16.0 g/dl [facility] Hematocrit 35.4(L) 37.0 - 47.0 % [facility] Mean Corpuscular Volume 98.1(H) 80.0 - 98.0 fL [facility] Mean Corpuscular Hemoglobin 32.7 27.0 - 33.0 pg [facility] Mean Corpuscular HGB Conc 33.3 31.0 - 35.0 g/dl [facility] Red Cell Distribution Width 13.6 11.0 - 16.0 % [facility] Platelet Count 225 160 - 400 X10*3/uL [facility] Mean Platelet Volume 12.5(H) 9.4 - 12.3 fL [facility] Neutrophils Percent Auto 59.1 45 - 73 % [facility] Imm Gran Pct Auto 0.3 0.0 - 0.4 % [facility] Lymphocytes Percent Auto 29.7 20 - 40 % [facility] Monocytes Percent Auto 8.1 2 - 11 % [facility] Eosinophils Percent Auto 2.2 0 - 4 % [facility] Basophils Percent Auto 0.6 0 - 2 % [facility] NRBC Pct Auto 0.0 0.0 - 0.2 /100WBC [facility] Neutrophils Absolute Auto 3.7 2.0 - 8.3 x10*3/uL [facility] Imm Gran Abs Auto 0.02 0.00 - 0.03 X10*3/uL [facility] Lymphocytes Absolute Auto 1.9 1.2 - 4.9 X10*3/uL [facility] Monocytes Absolute Auto 0.5 0.1 - 1.2 X10*3/uL [facility] Eosinophils Absolute Auto 0.1 0.0 - 0.4 X10*3/uL [facility] Basophils Absolute Auto 0.0 0.0 - 0.2 X10*3/uL [facility] NRBC Abs Auto 0.000 0.0 - 0.012 X10*3/uL [facility] Blood Venous blood specimen / Unknown 08/03/2025 10:21 AM EDT 08/03/2025 11:13 AM EDT Tawana [facility]ALL[facility] LAB BLOOD ORDERABLES Final Resul t [facility] [address] [place] [phone] * POCT HGB A1C (07/09/2025 2:18 PM EDT) Pathologist [facility] Hemoglobin A1C 5.6 4.0 - 5.7 % QC Media Lot # [id number] Lot# Expiration Date Blood 07/09/2025 2:18 PM EDT Tawana Castle [facility] POINT OF CARE TEST ENTER/EDIT OR DERABLES Final Result * (ABNORMAL) Cologuard?? colon cancer screening (02/11/2025 11:00 AM EDT) Cologuard Result Positive( A) Negative 02/16/2025 11:55 PM EDT [email or web address] (CLIA #:[id number]) Comment: POSITIVE TEST RESULT. A positive Cologuard [...] screened with both Cologuard and colonoscopy. (Julissa Moe et al, N Engl J Med 2014;370(14):8632-7604.) Cologuard may produce a false negative or false positive result (no colorectal cancer or precancerous polyp present at colonoscopy follow up). A negative Cologuard test result does not guarantee the absence of CRC or advanced adenoma (pre-cancer). The current Cologuard screening interval is every 3 years. ([place] [employer] and U.S. Multi-Society Task Force). Cologuard performance data in a 10,000 patient pivotal study using colonoscopy as the reference method can be accessed at the following location: www.[address]/results. Additional description of the Cologuard test process, warnings and precautions can be found at www.P4RCrd.Plisten. Stool specimen (specimen) 02/11/2025 11:00 AM EDT 02/13/2025 11:55 AM EDT [facility] LAB MOLECULAR DIAGNOSTICS ORDERA BLES Final Result [email or web address] (CLIA #:[id number]) [address] [place] [address], * Lipid Panel, Standard (06/27/2024 1:15 PM EDT) Triglycerides 94 <150 mg/dL [facility] Comment:Desirable Triglyceri de: less than 150 mg/dLBorderline High Triglyceride 150-199 mg/dLHigh Triglyceride: 200-499 mg/dLVery High Triglyceride: greater than or equal to 5OO mg/dL Cholesterol 153 <200 mg/dL [facility] Comment:Desirable Cholestero l: less than 200 mg/dLBorderline High Cholesterol: 200-239 mg/dLHigh Cholesterol: greater than 239 mg/dL LDL Cholesterol Calculated 84 <100 mg/dL [facility] Comment:Desirable LDL: less than 100 mg/dLNear Optimal/Above Optimal LDL: 110- 129 mg/dLBorderline High LDL: 130-159 mg/dLHigh LDL: 160-189 mg/dLVery High LDL: greater than or equal to 190 mg/dL HDL Cholesterol 51 >40 mg/dL [facility] Comment:Desirable HDL: great er than 40 mg/dL Note: This HDL assay may give artificially low results in patients with liver disease. Blood Venous blood specimen / Unknown 06/27/2024 1:15 PM EDT 06/27/2024 4:50 PM EDT [facility] BLOOD ORDERABLES Final Resul t [facility] [address] [place] [address] [phone] * Hepatitis C Antibody with Reflex to HCV, RNA, Quantitative, Real-Time PCR (02/17/2023 8:40 AM EDT) Hepatitis C Antibody NON-REACT MEGAN NON-REACT MEGAN [facility] [place] [employer] Index 0.04 <1.00 [facility] [place] [facility] Comment: HCV antibody was non-reactive. There is no laboratory evidence of HCV infection. In most cases, no further action is required. However, if recent HCV exposure is suspected, a test for HCV RNA (test code 86705) is suggested. For additional information please refer to http://education.[employer]/faq/GKU05p0 (This link is being provided for informational/ educational purposes only.) Blood Venous blood specimen / Unknown 02/17/2023 8:40 AM EDT 02/17/2023 8:41 AM EDT Narrative [facility]ST - 02/18/2023 10:35 AM EDT FASTING:YES FASTING: YES us Tawana Castle ANP LAB BLOOD ORDERABLES Final Resul t CHRIS More [address], [facility] [place] [address] [facility] [facility] [address] [place] [address] * HIV-1/2 Antigen and Antibodies, Fourth Generation, with Reflexes (02/17/2023 8:40 AM EDT) HIV Antigen/Antibody, 4th Generation NON-REAC TIVE NON-REAC TIVE [employer] [place] [employer] Comment: HIV-1 antigen and HIV-1/HIV-2 antibodies were [...] purpose. For additional information please refer to http://education.[employer]/faq/FIQ972 (This link is being provided for informational/ educational purposes only.) The performance of this assay has not been clinically validated in patients less than 2 years old. Blood Venous blood specimen / Unknown 02/17/2023 8:40 AM EDT 02/17/2023 8:41 AM EDT Narrative [facility] - 02/18/2023 10:35 AM EDT FASTING:YES FASTING: YES us Tawana Castle ANP LAB BLOOD ORDERABLES Final Resul t CHRIS More [address], [facility] [place] [address] [employer] [place] [employer] [address] [place] [address] * ALBUMIN, RANDOM URINE W/CREATININE (08/21/2020 9:49 [...] Provider LAB URINE ORDERABLES Josefina l Result [facility] [address] from Last 3 Months or Most Recently Relevant to Health Maintenance Insurance [facility] < 65 Care Teams Airline Dispatcher Relationship Specialty Start Date End Date Tawana Castle ANP [address] [place] [address] PCP - General Family Medicine 07/21/21
--- OUTSIDE RECORDS SUMMARY | 2025-10-22 19:45 | XMS_ITS | Encounter Summary ---
Author Organization [employer] Address 75 [facility] 7t [place] [address] Care Team Providers Care Sampling Theory Teacher Name Role Phone Jessy Randall Primary Care Provider [phone] Reason for Visit * Reason Comments Med Refill Encounter Details Date Type Department Care Team ([facility] Contact Info) Description 11/25/[address] [facility] [address] [place] [address] Jessy Randall ANP [address] [place] [address] Anxiety disorder, unspecified Social History Tobacco Use [...] Upcoming Encounters Date Type Department Care Team ([facility] Contact Info) Description 12/10/2025 2:30 PM EST Office Visit [facility] [address] [place] [address] Jessy Randall ANP [address] [place] [address] documented as of this encounter Visit Diagnoses Diagnosis Anxiety disorder, unspecified documented in this encounter Care Teams Sampling Theory Teacher Relationship Specialty Start Date End Date Jessy Randall ANP [address] [place] [address] PCP - General Family Medicine 07/21/21 documented as of this encounter
--- OUTSIDE RECORDS SUMMARY | 2025-10-22 19:45 | XMS_ITS | Encounter Summary ---
Author Organization [employer] Address 75 [facility] 7t [place] [address] Care Team Providers Care Observation Assistant Name Role Phone Jessy Randall Primary Care Provider [phone] Reason for Visit * Reason Comments Med Refill Encounter Details Date Type Department Care Team ([facility] Contact Info) Description 11/19/2022 Refill [facility] [address] [place] [address] Jessy Randall ANP [address] [place] [address] Anxiety disorder, unspecified Social History Tobacco Use [...] Upcoming Encounters Date Type Department Care Team ([facility] Contact Info) Description 12/10/2025 2:30 PM EST Office Visit [facility] [address] [place] [address] Jessy Randall ANP [address] [place] [address] documented as of this encounter Visit Diagnoses Diagnosis Anxiety disorder, unspecified documented in this encounter Care Teams Observation Assistant Relationship Specialty Start Date End Date Jessy Randall ANP [address] [place] [address] PCP - General Family Medicine 07/21/21 documented as of this encounter
--- OUTSIDE RECORDS SUMMARY | 2025-10-22 19:45 | XMS_ITS | Encounter Summary ---
Author Organization [employer] Address 75 [facility] 7t [place] [address] Care Team Providers Care Report Clerk Name Role Phone Jessy Randall Primary Care Provider [phone] Reason for Visit * Reason Comments Med Refill Encounter Details Date Type Department Care Team ([facility] st Contact Info) Description 09/13/2025 Refill [facility] [address] [place] [address] Jessy Randall ANP [address] [place] [address] Nicotine dependence, unspecified, uncomplicated Social History Tobacco [...] Description 12/10/2025 2:30 PM EST Office Visit [facility] [address] [place] [address] Jessy Randall ANP [address] [place] [address] documented as of this encounter Visit Diagnoses Diagnosis Nicotine dependence, unspecified, uncomplicated documented in this encounter Additional Health Concerns Assessment Noted Time PHQ-9 Depression Total Score: 0 07/09/20 25 2:17 PM EDT documented as of this encounter Care Teams Report Clerk Relationship Specialty Start Date End Date Jessy Randall ANP [address] [place] [address] PCP - General Family Medicine 07/21/21 documented as of this encounter
--- OUTSIDE RECORDS SUMMARY | 2025-10-22 19:45 | XMS_ITS | Encounter Summary ---
Author Organization [employer] Address 75 [facility] 7t [place] [address] Care Team Providers Care Program Rep Name Role Phone Jessy Randall Primary Care Provider [phone] Encounter Details Date Type Department Care Team (Late st Contact Info) Description 01/04/2023 Telephone [facility] [address] [place] [address] [phone] Marlene Holley LPN Social History Tobacco Use [...] Description 12/10/2025 2:30 PM EST Office Visit [facility] [address] [place] [address] Jessy Randall ANP [address] [place], [place] [phone] documented as of this encounter Visit Diagnoses Not on filedocumented in this encounter Care Teams Program Rep Relationship Specialty Start Date End Date Jessy Randall ANP [address] [place] [address] PCP - General Family Medicine 07/21/21 documented as of this encounter
--- OUTSIDE RECORDS SUMMARY | 2025-10-22 19:45 | XMS_ITS | Encounter Summary ---
Author Organization [employer] Address [address] [facility] [address] 7t [place] [address] Care Team Providers Care Floating Operator Name Role Phone Jessy Randall Primary Care Provider [phone] Reason for Visit * Reason Onset Date Comments error 11/18/2023 Encounter Details Date Type Department Care Team ([facility] st Contact Info) Description 11/18/2023 Telephone [facility] [address] [place] [address] Jessy Randall ANP [address] [place] [address] error Social History Tobacco Use Types Packs/Day [...] Description 12/10/2025 2:30 PM EST Office Visit [facility] [address] [place] [address] Jessy Randall ANP [address] [place] [address] documented as of this encounter Visit Diagnoses Not on filedocumented in this encounter Care Teams Floating Operator Relationship Specialty Start Date End Date Jessy Randall ANP [address] [place] [address] PCP - General Family Medicine 07/21/21 documented as of this encounter
--- OUTSIDE RECORDS SUMMARY | 2025-10-22 19:45 | XMS_ITS | Data Portability ---
Author Organization [facility], [facility] Address [address] [place] [address] Care Team Providers Care Vacuum Drier Operator Name Role Phone [facility] Primary Care Provider [phone] Assessment Encounter Date Assessment Date Assessment LastModified by Organization Details LastModified Time 12/28/2023 12/28/2023 I have reviewed and agree with the assessment and plan as documented by the hogshead stock clerk. I provided real-time medical direction for this [...] None recorded. Lab culture, urine 2023 024 [facility] (Centralized Electronic Ordering - All Locations), Patient Can Go To The Location Of Their Choice, [id number] 4 07:59:42 urinalysis , dipstick 2023 024 nathanielbety [facility], [address] [place] [address], [id number] 4 16:46:43 Referral None recorded. Procedures None [...] Not Available Main - [facility] ed [address] [place] [address], [address] [place] [address] 12/28/2023 16:44:31 12/28/19 24 12/28/2023 urina lysis , dipst ick Nitrite negati ve Not Available Main - [facility] ed [address] [place] [address], [address] [place] [address] 12/28/2023 16:44:31 12/28/19 24 12/28/2023 urina lysis , dipst ick Blood negati ve Not Available Main - [facility] ed [address] [place] [address], [phone] 12/28/2023 16:44:31 12/28/19 24 12/28/2023 urina lysis , dipst ick Color clear Not Available Main - [facility] jaimie [address] [place] [address], [address] [place] [address] 12/28/2023 16:44:31 Result Notes None recorded. Medical [...] Vitals Date Recorded Heart rate Oxygen saturation Body height Body weight Respiratory rate Body temperature Systolic And Diastolic Provider Name and Address Organization Details Last Updated DateTime 4 106 /min 94 % 167.64 cm 98755.3 6 g 20 /min 98.7 [degF] 121/86 [...] ICD10 Code Diagnosis IMO Codes Diagnosis Note [id number] Marisol Little MD Main - [facility] [address] [place] [phone] 12/28/2023 16:43:31 12/28/2023 21:40:35 Urinary symptoms [id number] R39.9 Health Concerns Section Related Observation LastModified by Organization Detai ls LastModified Time None Recorded Concern Status LastModified by Organization Details LastModified Time None Recorded Advance Directives Directive None Recorded Payers Insurance Date Sequence Insurance Name Policy Number Policy Kirby Covered Member ID Kirby Member ID Guarantor Name 12/28/2023 1 [facility] - DOS ON OR AFTER 2023 - DUAL ELIGIBLE - HALFWAY OPTIONS AND ONE CARE (MEDICARE REPLACEMENT/ADV ANTAGE - HMO) Rachel Mcginnis [id number] Rachel Mcginnis Notes Date Note Type Note [...] [place]): Comments: HPI was reviewed by this production underwriter - No further information needed at this time. .................. .................. .................. .................. .................. .................. .................. ............... Center Medical Director Note From Miriam Finley: Sent to a [...] dry; Urine sample obtained; urine dip: neg; [facility] consulted and orders urine culture to be sent to [facility]. Pt reassured of stable condition. Red flags discussed. Pt has no further questions. [facility] Lab Orders: culture, urine: Performed urinalysis, dipstick: Performed .................. .................. .................. .................. .................. .................. .................. ............... Disposition: Fulfilled Marisol Little MD [address] [facility],[address], [place], [address], [employer] 12/28/2023 17:50:31 OBGyn Episode No OBEpisode recorded.
--- OUTSIDE RECORDS SUMMARY | 2025-10-22 19:46 | XMS_ITS | Encounter Summary ---
Author Organization [employer] Address [address] [facility] [address] 7t [place] [address] Care Team Providers Care Fireman Helper Name Role Phone Jessy Randall Primary Care Provider Reason for Visit * Reason Comments Med Refill Encounter Details Date Type Department Care Team ([facility] st Contact Info) Description 09/08/2023 Refill [facility] & PEDS [address] [place], [place] [phone] Jessy Randall ANP 230 [place] [address] Pain Social History Tobacco Use Types Packs/Day [...] Description 12/10/2025 2:30 PM EST Office Visit [facility] [address] [place] [address] Jessy Randall ANP [address] [place] [address] documented as of this encounter Visit Diagnoses Diagnosis Pain Generalized pain documented in this encounter Care Teams Fireman Helper Relationship Specialty Start Date End Date Jessy Randall ANP [address] [place] [address] PCP - General Family Medicine 07/21/21 documented as of this encounter
--- OUTSIDE RECORDS SUMMARY | 2025-10-22 19:46 | XMS_ITS | Encounter Summary ---
Author Organization [employer] Address 75 [facility] 7t [place] [address] Care Team Providers Care Ring Attacher Name Role Phone Jessy Randall Primary Care Provider [phone] Reason for Visit * Reason Comments Med Refill Encounter Details Date Type Department Care Team (Late Contact Info) Description 05/05/2023 Refill [facility] [address] [place] [address] Jessy Randall ANP [address] [place] [address] Chronic migraine without aura without status migrainosus, [...] Department Care Team (Late Contact Info) Description 12/10/2025 2:30 PM EST Office Visit [facility] [address] [place] [address] Jessy Randall ANP [address] [place] [address] documented as of this encounter Visit Diagnoses Diagnosis Chronic migraine without aura without status migrainosus, not intractable documented in this encounter Care Teams Ring Attacher Relationship Specialty Start Date End Date Jessy Randall ANP [address] [place] [address] PCP - General Family Medicine 07/21/21 documented as of this encounter
--- OUTSIDE RECORDS SUMMARY | 2025-10-22 19:46 | XMS_ITS | Encounter Summary ---
Author Organization [employer] Address 75 [facility] 7t [place] [address] Care Team Providers Care Front Desk Name Role Phone Jessy Randall Primary Care Provider [phone] Reason for Visit * Reason Onset Date Comments Med Refill 11/25/2023 Encounter Details Date Type Department Care Team ([facility] st Contact Info) Description 11/25/2023 Telephone [facility] [address] [place] [address] Jessy Randall ANP [address] [place] [address] Med Refill Social History Tobacco Use Types [...] 9:33 AM EST Medication was sent to [facility] on 11/04/23. * Telephone Encounter - Mihaela Schwab - 11/25/2023 9:29 AM EST TC from pt requesting medication refill. Medications needing refill : dulaglutide (Trulicity) 0.75 MG/0.5ML solution pen-injector [facility] documented in this encounter Plan of Treatment Upcoming Encounters Date Type Department Care Team (Late st Contact Info) Description 12/10/2025 2:30 PM EST Office Visit [facility] [address] [place] [address] Jessy Randall ANP [address] [place] [address] documented as of this encounter Visit Diagnoses Not on filedocumented in this encounter Care Teams Front Desk Relationship Specialty Start Date End Date Jessy Randall ANP [address] [place] [address] PCP - General Family Medicine 07/21/21 documented as of this encounter
--- OUTSIDE RECORDS SUMMARY | 2025-10-22 19:46 | XMS_ITS | Encounter Summary ---
Author Organization [employer] Address 75 [facility] 7t [place] [address] Care Team Providers Care Cutter Operator Name Role Phone Jessy Randall Primary Care Provider [phone] Reason for Visit * Reason Onset Date Comments Med Change Request 05/04/2024 Encounter Details Date Type Department Care Team ([facility] st Contact Info) Description 05/04/2024 Telephone [facility] [address] [place] [address] Jessy Randall ANP [address] [place] [address] Med Change Request Social History Tobacco Use [...] Description 12/10/2025 2:30 PM EST Office Visit [facility] [address] [place] [address] Jessy Randall ANP [address] [place] [address] documented as of this encounter Visit Diagnoses Not on filedocumented in this encounter Care Teams Cutter Operator Relationship Specialty Start Date End Date Jessy Randall ANP [address] [place] [address] PCP - General Family Medicine 07/21/21 documented as of this encounter
--- OUTSIDE RECORDS SUMMARY | 2025-10-22 19:46 | XMS_ITS | Clinical Summary ---
Author Organization [facility] Address 175 [place] [address] Phone Care Team Providers Care Fly Frame Tender Name Role Phone ToniaJessy REESE Primary Care Provider [phone] Allergies Active Allergy Reactions Criticality Noted Date Comments Sulfa (Sulfonamide Antibiotics) Hives Low 12/30 Medications No known medications Encounters Date Type Department Care Team Description 08/29/2025 2:15 PM EDT Consult Orthopedic Surgery [facility] [address] [facility] [address] [place] [address] Du Guerrero DPM Controlled type 2 diabetes with neuropathy (CMS/HCC V24, CMS/HCC V28) (Primary Dx); Pain in toes of both feet; Arthritis of both feet; Hammertoes of both feet; Dermatophytosis, nail from Last 3 Months Social History Tobacco Use Types Packs/Day Years Used Date Smoking Tobacco: Never Assessed Comments Unknown Sex and Gender Information Value Date Recorded Sex Assigned at Not on file Legal Sex Female 11:40 AM EDT Gender Identity Not on file Sexual Orientation Not on file Plan of Treatment Health Maintenance Due Date Last Done Comments Breast Cancer Screening 1965 Diabetes: Annual Foot Exam 1975 Diabetes: Annual Retina Eye Exam 1975 Cervical Cancer Screening: Pap Smear 1986 RSV Immunization Adult Patients (1 - Risk 50-74 years 1-dose series) 2015 Medicare Annual Wellness Visit 09/23/2024 Social Influencers of Health Screening 09/23/2024 Depression Screening 11/29/2024 Diabetes: Annual Urine Albumin-Creatinine Ratio (uACR) 07/12/2025 COVID-19 Vaccine ( season) 2025 12/12/2024, 02/04/2023, 05/08/2022, Additional history exists Influenza Vaccine (#1) 2025 , 08/31/2023, 08/20/2022, Additional history exists Diabetes: Blood Sugar Control Test (HGBA1C) 01/09/2026 07/09/2025, 07/09/2025 Diabetes: Annual GFR (Glomerular Filtration Rate) 07/09/2026 07/09/2025 Hypertension/CHF/CAD Annual BMP Blood Test 07/09/2026 07/09/2025 Colorectal Cancer Screening: FIT-DNA (Cologuard) 02/12/2028 02/11/2025 Cholesterol Screening (Lipid Panel) 06/27/2029 06/27/2024 DTaP,Tdap,and Td Vaccines (2 - Td or Tdap) 10/10/2031 10/10/2021 Zoster Vaccines Completed 02/15/2023, 03/31/2022 HIV Screening Completed 02/17/2023 Hepatitis C Screening Completed 02/17/2023 Pneumococcal Vaccine: 50+ Years Completed 02/09/2024, 08/20/2022 [...] to complete this topic RSV Immunization Patients Under 20 months Aged Out No longer eligible based on patient's age to complete this topic Varicella Vaccines Aged Out No longer eligible based on patient's age to complete this topic Insurance [employer] MEDICARE Member Subscriber Plan / Payer (Ef fective 2023-Present) Name:RACHEL MYERS Relation to Subscriber:Self Name:Rachel Myers Payer ID:[id number] Group ID:[id number] Type:Not on file Address: [address] [facility] [place] [address] Care Teams Fly Frame Tender Relationship Specialty Start Date End Date Jessy Randall NP 230 [facility] [address] [place] [address] PCP - General 06/28/24
--- OUTSIDE RECORDS SUMMARY | 2025-10-22 19:46 | XMS_ITS | Encounter Summary ---
Author Organization [employer] Address 75 [facility] 7t [place] [address] Care Team Providers Care Nutritional Assistant Name Role Phone Jessy Randall Primary Care Provider [phone] Encounter Details Date Type Department Care Team (Late st Contact Info) Description 11/25/2022 Orders Only [facility] [address] [place], [place] [phone] Alisa Dolan RN Social History Tobacco Use [...] Description 12/10/2025 2:30 PM EST Office Visit [facility] 230 [place], [place] [phone] Jessy Randall ANP [address] [place], [place] [phone] documented as of this encounter Visit Diagnoses Not on filedocumented in this encounter Care Teams Nutritional Assistant Relationship Specialty Start Date End Date Jessy Randall ANP [address] [place] [address] PCP - General Family Medicine 07/21/21 documented as of this encounter
--- OUTSIDE RECORDS SUMMARY | 2025-10-22 19:46 | XMS_ITS | Encounter Summary ---
Author Organization [employer] Address [address] [facility] [address] 7t [place] [address] Care Team Providers Care Shotblast Equipment Operator Name Role Phone Jessy Randall Primary Care Provider [phone] Reason for Visit * Reason Comments Med Refill Encounter Details Date Type Department Care Team ([facility] st Contact Info) Description 04/18/2024 Refill [facility] MED & PEDS [address] [place], [place] [phone] Jessy Randall ANP [address] [place] [address] Pain Social History Tobacco Use Types Packs/Day [...] Description 12/10/2025 2:30 PM EST Office Visit [facility] MEDICINE [address] [place] [address] Jessy Randall ANP [address] [place] [address] documented as of this encounter Visit Diagnoses Diagnosis Pain Generalized pain documented in this encounter Care Teams Shotblast Equipment Operator Relationship Specialty Start Date End Date Jessy Randall ANP [address] [place] [address] PCP - General Family Medicine 07/21/21 documented as of this encounter
--- OUTSIDE RECORDS SUMMARY | 2025-10-22 19:46 | XMS_ITS | Encounter Summary ---
Author Organization [employer] Address 75 [facility] 7t [place] [address] Care Team Providers Care Tableau Architect Name Role Phone Jessy Randall Primary Care Provider [phone] Reason for Visit * Reason Onset Date Comments Nurse Triage 02/21/2025 Encounter Details Date Type Department Care Team ([facility] st Contact Info) Description 02/21/2025 Telephone [facility] 230 [place] [address] Jessy Randall ANP [address] [place] [address] Nurse Triage Social History Tobacco Use Types [...] 02/21/2025 9:47 AM EDT Triage call with [employer] admin ID [id number]. Pt is at work at time of [...] Description 12/10/2025 2:30 PM EST Office Visit [facility] [address] [place] [address] Jessy Randall ANP [address] [place] [address] documented as of this encounter Visit Diagnoses Not on filedocumented in this encounter Additional Health Concerns Assessment Noted Time PHQ-9 Depression Total Score: 11 025 2:04 PM EST documented as of this encounter Care Teams Tableau Architect Relationship Specialty Start Date End Date Jessy Randall ANP [address] [place] [address] PCP - General Family Medicine 07/21/21 documented as of this encounter
--- OUTSIDE RECORDS SUMMARY | 2025-10-22 19:46 | XMS_ITS | Encounter Summary ---
Author Organization [employer] Address [address] [place] [address] Care Team Providers Care Marine Rigger Name Role Phone Jessy Randall KAVITA Primary Care Provider Encounter Details Date Type Department Care Team (Latest Contact Info) Description 10/22/2025 Travel Social History Tobacco Use Types Packs/Day [...] t he electric, gas, oil or water [employer] threatened to shut off services in your [...] Description 12/10/2025 2:30 PM EST Office Visit [facility] MEDICINE [address] [place] [id number] Jessy Randall ANP [address] [place] [address] documented as of this encounter Visit Diagnoses Not on filedocumented in this encounter Additional Health Concerns Assessment Noted Time PHQ-9 Depression Total Score: 0 07/09/20 25 2:17 PM EDT documented as of this encounter Care Teams Marine Rigger Relationship Specialty Start Date End Date Jessy Randall ANP [address] [place] [id number] PCP - General Family Medicine 07/21/21 documented as of this encounter
--- OUTSIDE RECORDS SUMMARY | 2025-10-22 19:46 | XMS_ITS | Encounter Summary ---
Author Organization [employer] Address [address] [facility] [address] [place] [address] Care Team Providers Care Research Engineer Marine Equipment Name Role Phone Jessy Randall Primary Care Provider [phone] Reason for Visit * Reason Onset Date Comments Medication Question 04/11/2025 Encounter Details Date Type Department Care Team ([facility] st Contact Info) Description 04/11/2025 Telephone [facility] MEDICINE [address] [place] [address] Jessy Randall ANP [address] [place] [address] Medication Question Social History Tobacco Use Types [...] 04/11/2025 3:22 PM EDT TC placed to [facility] in to inquire about the schedule for Elie Jovel and if the pt would beable to transfer her care over to him. The pt reported that former psychiatrist Alysia Gould at [facility] in [place] has retired. RN tried to call [facility] to confirm this information but was on hold for some time. [facility] states that she will call that office to inquire as there is a process to changing providers. This message will routed to [facility] in * Telephone Encounter - Citlali Cordoba - 04/11/2025 1:09 PM EDT Tc from pt requesting a call back. Pt stated she was following up with psychiatrist but current oneretired. Pt stated she was advised to request a new referral to a different psychiatrist and pcp toprescribe medication until pt establishes care. Contact pt at [phone] (occitan) documented in this encounter Plan of Treatment Upcoming Encounters Date Type Department Care Team (Late st Contact Info) Description 12/10/2025 2:30 PM EST Office Visit [facility] MED[facility]INE [address] [place] [address] Jessy Randall ANP [address] [place] [address] documented as of this encounter Visit Diagnoses Not on filedocumented in this encounter Additional Health Concerns Assessment Noted Time PHQ-9 Depression Total Score: 11 025 2:04 PM EST documented as of this encounter Care Teams Research Engineer Marine Equipment Relationship Specialty Start Date End Date Jessy Randall ANP [address] [place] [address] PCP - General Family Medicine 07/21/21 documented as of this encounter
--- OUTSIDE RECORDS SUMMARY | 2025-10-22 19:46 | XMS_ITS | Encounter Summary ---
Author Organization [employer] Address [address] [facility] [address] [place] [address] Care Team Providers Care Algebraist Name Role Phone Jessy Randall Primary Care Provider [phone] Reason for Visit * Reason Onset Date Comments Appointment Request 09/07/2025 Encounter Details Date Type Department Care Team ([facility] st Contact Info) Description 09/07/2025 Telephone [facility] MEDICINE [address] [place] [address] Jessy Randall ANP [address] [place] [address] Appointment Request Social History Tobacco Use Types [...] that was scheduled today Contact pt at [phone] (japanese) documented in this encounter Plan of Treatment Upcoming Encounters Date Type Department Care Team (Late st Contact Info) Description 12/10/2025 2:30 PM EST Office Visit [facility] MEDICINE [address] [place] [address] Jessy Randall ANP [address] [place] [address] documented as of this encounter Visit Diagnoses Not on filedocumented in this encounter Additional Health Concerns Assessment Noted Time PHQ-9 Depression Total Score: 0 07/09/20 25 2:17 PM EDT documented as of this encounter Care Teams Algebraist Relationship Specialty Start Date End Date Jessy Randall ANP [address] [place] [address] PCP - General Family Medicine 07/21/21 documented as of this encounter
--- OUTSIDE RECORDS SUMMARY | 2025-10-22 19:46 | XMS_ITS | Encounter Summary ---
Author Organization [employer] Address [address] [place] [address] Care Team Providers Care Multiple Sclerosis Nurse Name Role Phone Jessy Randall Primary Care Provider Reason for Visit * Reason Onset Date Comments Referral 11/25/2023 Encounter Details Date Type Department Care Team ([facility] st Contact Info) Description 11/25/2023 Telephone [facility] MED[facility]INE [address] [place], [place] [phone] Jessy Randall ANP [address] [place] [address] Referral Social History Tobacco Use Types Packs/Day [...] Description 12/10/2025 2:30 PM EST Office Visit [facility] MEDICINE [address] [place] [address] Jessy Randall ANP [address] [place] [address] documented as of this encounter Visit Diagnoses Not on filedocumented in this encounter Care Teams Multiple Sclerosis Nurse Relationship Specialty Start Date End Date Jessy Randall ANP [address] [place] [id number] PCP - General Family Medicine 07/21/21 documented as of this encounter
== END 2025-10-22 14:58 | disposition home or self-care (01) ==
LOC: HO.HHCL 14:57
PROVIDERS: PCP Nurse Practitioner Primary Care; Visit Provider Nurse Practitioner
DX: M54.9 Dorsalgia, unspecified (principal)
CPT/HCPCS: 36415; 85652; 86140